=== PATIENT | male | born 1930 | race Caucasian/White ===

== ENCOUNTER 2017-09-03 07:00 | Day surgery (SDC) | payer OTHER, MEDICARE ==
[2017-09-02 11:34] LABS: Absolute Lymphocytes (CBC) 1.4 K/uL (0.7-4.9); Absolute Monocytes 0.6 K/uL (0.1-1.3); Absolute Neutrophil 4.7 K/uL (1.8-8.0); Basophils % 0.5 % (0-1.3); Eosinophils % 2.7 % (0-4.4); Hematocrit 34.9 % (39.6-49.0); Lymphocytes % 19.9 % (15.3-44.8); MCH 29.1 pg (27.0-35.0); MCV 89.5 fL (80-100); MPV 8.3 fL (7.6-11.3); Monocytes % 8.9 % (3.3-12.3); Protime INR 1.13; RBC Red Blood Cell Count 3.89 M/uL (4.33-5.43)
--- NOTE | 2017-09-02 11:35 | RAD REPORT ---
EXAM DESCRIPTION: RADOP - Outpatient Chest Single View - 09/02/2017 10:31 am CLINICAL HISTORY: Hypertension/preop COMPARISON: None FINDINGS: Mild bilateral interstitial lung opacities are seen. Small pleural effusions may be presen t. The heart is mildly to moderately enlarged. A small to moderate hiatal hernia is present. IMPRESSION: Mild CHF
[2017-09-02 12:08] LABS: Potassium 4.9 mEq/L (3.6-5.0)
[2017-09-03] MEDS ORDERED: LIDOCAINE 1% 20 ML MDV ONE (07:29)
[2017-09-03] MEDS ORDERED: HEPA 1000U/500MLS 2,000 UNIT/1,000 ML BAG IV ONE (07:29)
[2017-09-03] MEDS ORDERED: NA CHLORIDE 0.9% 500 ML ONE (07:29)
[2017-09-03] MEDS ORDERED: HEPARIN 5000 UNIT/ML 1 ML VIAL ONE (08:18)
[2017-09-03] MEDS ORDERED: NA CHLORIDE 0.9% 0 ML ONE (08:19)
[2017-09-03] MEDS ORDERED: NITROGLYCERIN/D5W 25 MG/250 ML BTL IV ONE (08:19)
[2017-09-03] MEDS ORDERED: NICARDIPINE HCL 25 MG/10 ML IV ONE (08:19)
[2017-09-03] MEDS ORDERED: ATROPINE SULF 1 MG/10 ML SYR IV ONE (08:19)
[2017-09-03] MEDS ORDERED: MIDAZOLAM HCL 2 MG/2 ML INJ ONE (08:19)
[2017-09-03] MEDS ORDERED: FENTANYL CITR 100 MCG/2 ML ONE (08:29)
--- NOTE | 2017-09-03 19:50 | OP ---
Surgeon: Isreal Mondragon MD Identification: An 87-year-old man. Primary Care Physician: [place] M.D. Procedure: Left heart catheterization with coronary left ventricular angiography. Findings: The patient has a left dominant coronary circulation. 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 There are no normal arterial segments. The left main has 70%, proximal LAD 70%, larg e ramus 90%, circumflex ectatic with a 60% stenosis. 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 Ejection fraction 30% with anteroapical akinesis from a previous [place]. Procedure In Detail: The patient was brought to the cardiac laboratory inspector in a fasting state, sedated wit h Versed and fentanyl. Right radial approach was used. Prepared and draped in usual sterile fashion . 1% lidocaine was used to anesthetize the skin over the right radial artery. The artery was entere d using a 21-gauge needle. A 0.021 inch diameter wire was used to cannulate the right radial artery. We then used that to place a 6-Japanese Terumo sheath. The sheath was flushed. He was given a radia l cocktail. A TIG catheter was guided into the ascending aorta. There was significant branching and tortuosity of the brachial artery which required angiograms of the brachial artery and a Wooly wire. We were able to do the entire case with a TIG catheter. we angiogram'd left coronary, right zafar ry, left ventricle, all with the same catheter. At the end of the procedure, the catheter and wires were withdrawn, sheaths flushed, removed, arteriotomy closed with a TR band. No complications. The recommendation is that he go through bypas s surgery. MALICK/SHAHNAZ Voice ID: [id number] Report ID: [id number]
== END 2017-09-03 11:20 | disposition home or self-care (01) ==
LOC: CCL 07:00
PROVIDERS: ATTEND Internal Medicine
DX: I25.110 Atherosclerotic heart disease of native coronary artery with unstable angina pectoris (principal); I25.82 Chronic total occlusion of coronary artery; I10 Essential (primary) hypertension; E78.2 Mixed hyperlipidemia; F17.220 Nicotine dependence, chewing tobacco, uncomplicated; E11.9 Type 2 diabetes mellitus without complications
CPT/HCPCS: 36415; 71045; 80048; 82962; 85025; 85610; 85730; 93458; C1893; J1644; J2250; J3010; J0583

== ENCOUNTER 2017-09-07 16:10 | Emergency (ER) | payer OTHER, MEDICARE ==
[2017-09-07 16:56] LABS: Arterial Blood Carboxyhemoglob 0.9 % (0-1.5); Blood Gas Oxyhemoglobin 98.1 % (94-97); Blood O2 Saturation 99.5 % (92-98.5)
[2017-09-07 17:00] LABS: Absolute Lymphocytes (CBC) 1.1 K/uL (0.7-4.9); Absolute Monocytes 0.9 K/uL (0.1-1.3); Absolute Neutrophil 8.7 K/uL (1.8-8.0); Basophils % 0.5 % (0-1.3); Eosinophils % 0.2 % (0-4.4); Hematocrit 34.7 % (39.6-49.0); MCH 29.3 pg (27.0-35.0); MCV 89.9 fL (80-100); MPV 9.3 fL (7.6-11.3); Monocytes % 8.2 % (3.3-12.3); RBC Red Blood Cell Count 3.86 M/uL (4.33-5.43)
[2017-09-07] MEDS ORDERED: ALBUTEROL 2.5 MG/3 ML NEB SOL ONE (17:02)
[2017-09-07] MEDS ORDERED: IPRATROPIUM BROM 0.5MG/2.5ML ONE (17:02)
[2017-09-07 17:04] LABS: Protime INR 1.43
[2017-09-07 17:11] LABS: Bicarbonate 24 mEq/L (21-31); Glucose Level 248 mg/dL (65-120); Potassium 5.3 mEq/L (3.6-5.0); Sodium Level 129 mEq/L (135-145)
[2017-09-07 17:17] LABS: ALT/SGPT 144 IU/L (10-60); AST/SGOT 128 IU/L (10-42); Albumin 3.8 g/dL (3.2-5.5); Alkaline Phosphatase 127 IU/L (42-121); BUN Blood Urea Nitrogen 43 mg/dL (6-20); Bilirubin Direct 0.5 mg/dL (0-0.2); Bilirubin Total 1.4 mg/dL (0.3-1.2); Creatine Phosphokinase 585 IU/L (22-269); Magnesium 2.1 mg/dL (1.8-2.5); Protein, Total 7.3 g/dL (6.0-8.3)
[2017-09-07 17:25] LABS: CKMB Creatine Kinase MB 13.2 ng/ml (0.3-4.0)
--- NOTE | 2017-09-07 17:51 | RAD REPORT ---
EXAM DESCRIPTION: Sonal Single View09/07/2017 5:20 pm CLINICAL HISTORY: Chest pain COMPARISON: September 02, 2017 FINDINGS: Small pleural effusions are suspected with bibasilar atelectasis. Mild interstitial pulmo nary edema may be present. The heart is mildly enlarged.
--- NOTE | 2017-09-07 18:02 | ER ---
Nurse's Notes [facility] Name: Sebastián Naylor Age: 87 yrs Sex: Male : 1930 Arrival Date: 09/07/2017 Time: 16:13 Bed 6 Private MD: Diagnosis: Fluid overload, unspecified;Dyspnea, unspecified Presentation: 09/07 16:18 Presenting complaint: Patient states: I will have a triple bypass this Friday, im not hj comfortable, im short of breath, blood sugar was 300, gave insulin 30 units around 2pm, and rechecked it it was 311; denies fever and chills;. Transition of care: patient was not received from another setting of care. Onset of symptoms was September 07, 2017. Care prior to arrival: None. 16:18 Method Of Arrival: Ambulatory 16:18 Acuity: PRATIBHA 3 hj 16:58 Acuity: PRATIBHA 2 la1 Triage Assessment: 16:21 General: Appears in no apparent distress. uncomfortable, Behavior is calm, cooperative, hj appropriate for age. Pain: Denies pain. Respiratory: Reports shortness of breath Onset: The symptoms/episode began/occurred 3 weeks, the patient has moderate shortness of breath. 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 - Social history:: Smoking status: unknown. Screenin:59 Abuse screen: Denies threats or abuse. Nutritional screening: No deficits noted. la1 Tuberculosis screening: No symptoms or risk factors identified. Fall Risk No fall in past 12 months (0 pts). No secondary diagnosis (0 pts). IV access (20 points). Ambulatory Aid- None/Bed Rest/Nurse Assist (0 pts). Gait- Weak (10 pts.). Mental Status- Oriented to own ability (0 pts). Total Neal Fall Scale indicates Low Risk Score (25-44 pts). Family Present and informed to notify staff if they need to leave bedside. Assessment: 16:21 Cardiovascular: Rhythm is. Respiratory: Airway is patent Respiratory effort is even, hj unlabored, Respiratory pattern is regular, symmetrical, 17:14 General: Appears uncomfortable, Behavior is calm, cooperative. Pain: Denies pain. la1 Neuro: Level of Consciousness is awake, alert, obeys commands, Oriented to person, place, time, situation. Cardiovascular: Heart tones S1 S2 present Capillary refill < 3 seconds Patient's skin is warm and dry. Rhythm is sinus bradycardia. Respiratory: Airway is patent Respiratory effort is even, unlabored, Respiratory pattern is regular, symmetrical, Breath sounds are clear bilaterally. GI: Abdomen is round non-distended, Bowel sounds present X 4 quads. : No signs and/or symptoms were reported regarding the genitourinary system. Vital Signs: 16:21 BP 124 / 56; Pulse 46; Resp 18; Temp 97.3(TE); Pulse Ox 97% on R/A; Weight 86.18 kg; hj Height 5 ft. 7 in. (170.18 cm); Pain 0/10; 16:58 BP 147 / 66; Pulse 54; Resp 20; Pulse Ox 100% on Non-rebreather mask; la1 18:19 BP 122 / 76; Pulse 60; Resp 16; Pulse Ox 100% on R/A; la1 18:53 BP 110 / 53; Pulse 51; Resp 16; Pulse Ox 96% on R/A; la1 16:21 Body Mass Index 29.76 (86.18 kg, 170.18 cm) ED Course: 16:13 Patient arrived in ED. sb2 16:20 Triage completed. hj 16:21 Arm band placed on right wrist. hj 16:30 Pippa Mccracken FNP-C [facility]. snw 16:30 Joe Calzada MD is Attending Physician. snw 16:58 Placed in gown. Bed in low position. Call light in reach. quality assurance monitor final on. Pulse ox la1 on. NIBP on. 17:00 No provider procedures requiring assistance completed. Inserted saline lock: 20 gauge la1 in left antecubital area, using aseptic technique. Blood collected. 17:14 Carter Deutsch, RN is Primary Nurse. la1 17:20 X-ray completed. Portable x-ray completed in exam room. Patient tolerated procedure jw2 well. 17:21 XRAY Chest (1 view) In Process Unspecified. EDMS 17:28 Notified Nurse Practitioner and/or Physician Sql Data Architect of a critical lab result(s), la1 ckmb 13.2. Administered Medications: 16:48 Drug: DuoNeb (3:1) (2.5 mg - 0.5 mg) 3 ml Route: Nebulizer; la1 18:59 Follow up: Response: No adverse reaction la1 18:19 Drug: Lasix 20 mg Route: IVP; Site: left antecubital; la1 18:59 Follow up: Response: No adverse reaction la1 Outcome: 18:01 ER care complete, transfer ordered by MD. metzger 18:59 Patient left the ED. la1 Signatures: Dispatcher [employer] EDIN Pippa Mccracken, ROGERS-C MANAGER ADMINISTRATIVE SERVICES-Csnw Carter Deutsch RN RN la1 Duke Ballard RN RN Gianna Escalante jw2 Tiffany Gallo sb2 Corrections: (The following items were deleted from the chart) 16:26 16:21 BP 124 / 56; Pulse 95bpm; Resp 18bpm; Pulse Ox 97% RA; Temp 97.3F Temporal; 86.18 hj kg; Height 5 ft. 7 in.; BMI: 29.7; Pain 0/10; 16:59 16:58 BP 147 / 66; Pulse 20bpm; Resp 20bpm; Pulse Ox 100% Non-rebreather mask; la1 la1 17:14 16:58 BP 147 / 66; Pulse 20bpm; Resp 54bpm; Pulse Ox 100% Non-rebreather mask; la1 la1
--- NOTE | 2017-09-07 18:02 | EDPHYS ---
Physician Documentation [facility] Name: Sebastián Naylor Age: 87 yrs Sex: Male : 1930 Arrival Date: 09/07/2017 Time: 16:13 Bed 6 Private MD: ED Physician Joe Calzada HPI: 09/07 17:30 This 87 yrs old Male presents to ER via Ambulatory with complaints of High snw Blood Sugar, Shortness Of Breath. 17:30 The patient or guardian reports hyperglycemia, that was potentially precipitated by no snw particular event, with the patient's symptoms witnessed by family. Onset: The symptoms/episode began/occurred suddenly, today. Associated signs and symptoms: Pertinent positives: anorexia, nausea, MICHEL. Current symptoms: In the emergency department the patient's symptoms are unchanged from the initial presentation. It is unknown whether or not the patient has had similar symptoms in the past. The patient has been recently seen by a physician: a plate grainer, [facility] - Dr. Wick in scheduled for triple bypass Friday. 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 - Social history:: Smoking status: unknown. ROS: 17:27 Eyes: Negative for injury, pain, redness, and discharge, ENT: Negative for injury, snw pain, and discharge, Neck: Negative for injury, pain, and swelling, Cardiovascular: Negative for chest pain, palpitations, and edema. 17:27 Back: Negative for injury and pain, : Negative for injury, bleeding, discharge, and swelling, MS/Extremity: Negative for injury and deformity, Skin: Negative for injury, rash, and discoloration, Neuro: Negative for headache, weakness, numbness, tingling, and seizure. 17:27 Constitutional: Positive for fatigue, malaise, poor PO intake. 17:27 Respiratory: Positive for shortness of breath, on exertion. 17:27 Abdomen/GI: Positive for nausea. 17:27 Psych: Positive for anxiety. Exam: 17:27 Head/Face: Normocephalic, atraumatic. Eyes: Pupils equal round and reactive to light, snw extra-ocular motions intact. Lids and lashes normal. Conjunctiva and sclera are non-icteric and not injected. Cornea within normal limits. Periorbital areas with no swelling, redness, or edema. ENT: Nares patent. No nasal discharge, no septal abnormalities noted. Tympanic membranes are normal and external auditory canals are clear. Mass distal to tragus to right. Oropharynx with mild redness, no swelling, masses, or exudates, or evidence of obstruction, uvula midline. Mucous membranes moist. Neck: Trachea midline, no thyromegaly or masses palpated, and no cervical lymphadenopathy. Supple, full range of motion without nuchal rigidity, or vertebral point tenderness. No Meningismus. Chest/axilla: Normal chest wall appearance and motion. Nontender with no deformity. No lesions are appreciated. Cardiovascular: Regular rate and rhythm with a normal S1 and S2. No gallops, murmurs, or rubs. Normal PMI, no JVD. No pulse deficits. 17:27 Abdomen/GI: Soft, non-tender, with normal bowel sounds. No distension or tympany. No guarding or rebound. No evidence of tenderness throughout. Back: No spinal tenderness. No costovertebral tenderness. Full range of motion. 17:27 Neuro: Awake and alert, GCS 15, oriented to person, place, time, and situation. Cranial nerves II-XII grossly intact. Motor strength 5/5 in all extremities. Sensory grossly intact. Cerebellar exam normal. Normal gait. 17:27 Constitutional: The patient appears alert, awake, anxious, restless, uncomfortable. 17:27 Respiratory: mild respiratory distress is noted, Respirations: shallow respirations, tachypnea, Breath sounds: wheezing: that is mild, rare to left upper lobe. 17:27 Skin: Appearance: Color: pale, Temperature: normal temperature, Moisture: normal moisture, swelling, is not appreciated. Vital Signs: 16:21 BP 124 / 56; Pulse 46; Resp 18; Temp 97.3(TE); Pulse Ox 97% on R/A; Weight 86.18 kg; hj Height 5 ft. 7 in. (170.18 cm); Pain 0/10; 16:58 BP 147 / 66; Pulse 54; Resp 20; Pulse Ox 100% on Non-rebreather mask; la1 18:19 BP 122 / 76; Pulse 60; Resp 16; Pulse Ox 100% on R/A; la1 18:53 BP 110 / 53; Pulse 51; Resp 16; Pulse Ox 96% on R/A; la1 16:21 Body Mass Index 29.76 (86.18 kg, 170.18 cm) hj MDM: 16:30 Patient medically screened. snw 17:55 Data reviewed: vital signs, nurses notes. Data interpreted: Pulse oximetry: on room air snw is 100 %. Interpretation: normal. Counseling: I had a detailed discussion with the patient and/or guardian regarding: the historical points, exam findings, and any diagnostic results supporting the discharge/admit diagnosis, the presence of at least one elevated blood pressure reading (>120/80) during this emergency department visit, lab results, radiology results, the need to transfer to another facility, [facility] does not immediately have the required specialist. Physician consultation: Dr Wick was called at 17:59, was contacted at 17:59, regarding regarding transfer, to [facility]. patient's condition, Lasix 20mg IV now, Pt accepted in transfer to Dr. Wick.. 18:15 Medication response: albuterol nebulizer treatment(s) markedly relieved the patient's snw wheezing. ED course: pt states he is feeling much better. Will administer Lasix 20mg IV as discussed with Cardiology [facility] now. 09/07 16:32 Order name: Basic Metabolic Panel; Complete Time: 17:33 snw 09/07 16:32 Order name: BNP; Complete Time: 17:25 snw 09/07 16:32 Order name: CBC with Diff; Complete Time: 17:02 snw 09/07 16:32 Order name: Ckmb; Complete Time: 17:33 snw 09/07 16:32 Order name: CPK; Complete Time: 17:33 snw 09/07 16:32 Order name: LFT's; Complete Time: 17:33 snw 09/07 16:32 Order name: Magnesium; Complete Time: 17:33 snw 09/07 16:32 Order name: PT-INR; Complete Time: 17:13 snw 09/07 16:32 Order name: Ptt, Activated; Complete Time: 17:13 snw 09/07 16:32 Order name: Troponin (emerg Dept Use Only); Complete Time: 17:25 snw 09/07 16:32 Order name: Acetone, Serum; Complete Time: 17:33 snw 09/07 16:32 Order name: Osmolality, Serum; Complete Time: 17:25 snw 09/07 16:32 Order name: ABG; Complete Time: 17:13 w 09/07 16:32 Order name: TS; Complete Time: 17:39 snw 09/07 16:32 Order name: XRAY Chest (1 view); Complete Time: 17:51 w 09/07 16:32 Order name: EKG; Complete Time: 16:33 w 09/07 16:32 Order name: Cardiac monitoring; Complete Time: 16:35 w 09/07 16:32 Order name: EKG - Nurse/Tech; Complete Time: 16:35 snw 09/07 16:32 Order name: IV Saline Lock; Complete Time: 16:48 w 09/07 16:32 Order name: Labs collected and sent; Complete Time: 16:48 w 09/07 16:32 Order name: O2 Per Protocol; Complete Time: 16:35 snw 09/07 16:32 Order name: O2 Sat Monitoring; Complete Time: 16:35 w 09/07 16:32 Order name: Blood Culture Adult (2) snw Administered Medications: 16:48 Drug: DuoNeb (3:1) (2.5 mg - 0.5 mg) 3 ml Route: Nebulizer; la1 18:59 Follow up: Response: No adverse reaction la1 18:19 Drug: Lasix 20 mg Route: IVP; Site: left antecubital; la1 18:59 Follow up: Response: No adverse reaction la1 Disposition: 19:04 Co-signature as Attending Physician, Joe Calzada MD. rn Disposition: 09/07/17 18:01 Transfer ordered to [facility]. Diagnosis are Fluid overload, unspecified, Dyspnea, unspecified. - Reason for transfer: Higher level of care. - Accepting physician is Dr. Wick. - Condition is Stable. - Problem is chronic. - Symptoms have worsened. Signatures: Dispatcher [employer] EDMS Pippa Mccracken, QUALITY ASSURANCE QA LAB ANALYST-C QUALITY ASSURANCE QA LAB ANALYST-Csnw Joe Calzada MD MD rn Attema, Lee, RN RN la1 Duke Ballard RN RN hj Corrections: (The following items were deleted from the chart) 18:59 16:32 Urine Dipstick-Ancillary ordered. sn la1
[2017-09-07] MEDS ORDERED: FUROSEMIDE 20 MG/ 2ML VIAL ONE (18:35)
--- NOTE | 2017-09-08 12:56 | EKG ---
Test Date: 2017-09-07 Test Time: 16:32:16 Spring Maker: PATRICK MEASUREMENT RESULTS: Intervals: Rate: 54 ND: 184 QRSD: 146 QT: 512 QTc: 485 [place]: P: 59 ND: 184 QRS: -17 T: 138 INTERPRETIVE STATEMENTS: Sinus bradycardia with premature atrial complexes Left bundle branch block Abnormal ECG Compared to ECG 09/07/2003 15:59:00 Atrial premature complex(es) now present Left bundle-branch block now present Sinus rhythm no longer present Electronically Signed On 09-08-17 12:56:22 CDT by Isreal Mondragon
== END 2017-09-07 18:59 | disposition short-term general hospital (02) ==
LOC: ER 16:10
DX: E87.70 Fluid overload, unspecified (principal); R06.00 Dyspnea, unspecified; E11.9 Type 2 diabetes mellitus without complications
CPT/HCPCS: 36415; 71045; 80048; 80076; 82009; 82550; 82553; 82805; 83735; 83880; 83930; 84484; 85025; 85610; 85730; 86850; 86900; 86901; 87040 ×2; 93005; 94640; 96374; 99285; J1940

== ENCOUNTER 2019-07-20 14:17 | Inpatient (IN) | payer OTHER, MEDICARE ==
--- OUTSIDE RECORDS SUMMARY | 2019-07-20 14:39 | XMS REPORT ---
:1930 [facility] Address [address] [place] [address] Care Team Providers Name Role Phone STEFAN ASHLEY Unavailable Unavailable Problems This patient has no known problems. Allergies, Adverse Reactions, Alerts This patient has no known allergies or adverse reactions. Medications This patient has no known medications. Results Test Description Test Time Test Comments Text Results Atomic Results Result Comments POCT-GLUCOSE METER 2017-09-17 12:06:00 Test Item Value Reference Range Comments POC-GLUCOSE METER (BEAKER) (test 316 mg/dL 70-110 Notified MIGEL MILLER/TESTED AT [facility] ohif=7924) [address] [place] [address] POCT-GLUCOSE [id number] 08:21:00 Test Item Value Reference Range Comments POC-GLUCOSE METER (BEAKER) 239 mg/dL 70-110 TESTED AT [address] (test ycsi=3645) [facility] [address] BASIC METABOLIC [id number] 06:33:00 Test Item Value Reference Range Comments SODIUM (BEAKER) (test 138 meq/L 136-145 osxu=321) POTASSIUM (BEAKER) (test 4.0 meq/L 3.5-5.1 Specimen slightly fjxt=429) hemolyzed CHLORIDE (BEAKER) (test 104 meq/L 98-107 jsem=375) CO2 (BEAKER) (test 23 meq/L 22-29 szdt=516) BLOOD UREA NITROGEN 29 mg/dL 7-21 (BEAKER) (test vhrd=257) CREATININE (BEAKER) (test 1.47 mg/dL 0.57-1.25 Specimen slightly ijli=377) hemolyzed GLUCOSE RANDOM (BEAKER) 180 mg/dL 70-105 (test gdmm=992) CALCIUM (BEAKER) (test 8.1 mg/dL 8.4-10.2 pwew=907) EGFR (BEAKER) (test 46 mL/min/1.73 sq m ESTIMATED GFR IS NOT apwx=5698) ACCURATE CREATININE CLEARANCE IN PREDICTING GLOMERULAR FILTRATION RATE. ESTIMATED GFR IS NOT APPLICABLE FOR DIALYSIS PATIENTS. Specimen slightly ictericB-TYPE NATRIURETIC FACTOR (BNP)2017-09-17 06:31:00 Test Item Value Reference Range Comments B-TYPE NATRIURETIC PEPTIDE (BEAKER) (test 2250 pg/mL 0-100 yldw=901) CBC W/PLT COUNT & AUTO [id number] 06:18:00 Test Item Value Reference Range Comments WHITE BLOOD CELL COUNT (BEAKER) (test xcmg=543) 13.7 K/ L 3.5-10.5 RED BLOOD CELL COUNT (BEAKER) (test kaks=802) 3.21 M/ L 4.63-6.08 HEMOGLOBIN (BEAKER) (test pnft=703) 9.3 GM/DL 13.7-17.5 HEMATOCRIT (BEAKER) (test pztq=820) 29.5 % 40.1-51.0 MEAN CORPUSCULAR VOLUME (BEAKER) (test rcif=626) 91.9 fL 79.0-92.2 MEAN CORPUSCULAR HEMOGLOBIN (BEAKER) (test 29.0 pg 25.7-32.2 srff=800) MEAN CORPUSCULAR HEMOGLOBIN CONC (BEAKER) (test 31.5 GM/DL 32.3-36.5 bjyo=819) RED CELL DISTRIBUTION WIDTH (BEAKER) (test 16.3 % 11.6-14.4 yxnq=013) PLATELET COUNT (BEAKER) (test itni=680) 226 K/CU MM 150-450 MEAN PLATELET VOLUME (BEAKER) (test vuzs=289) 9.8 fL 9.4-12.4 NUCLEATED RED BLOOD CELLS (BEAKER) (test 0 /100 WBC 0-0 fsbg=739) NEUTROPHILS RELATIVE PERCENT (BEAKER) (test 75 % bcco=804) LYMPHOCYTES RELATIVE PERCENT (BEAKER) (test 11 % tezy=130) MONOCYTES RELATIVE PERCENT (BEAKER) (test 9 % pbas=525) EOSINOPHILS RELATIVE PERCENT (BEAKER) (test 3 % qedv=657) BASOPHILS RELATIVE PERCENT (BEAKER) (test 0 % liuw=098) NEUTROPHILS ABSOLUTE COUNT (BEAKER) (test 10.16 K/ L 1.78-5.38 jynn=170) LYMPHOCYTES ABSOLUTE COUNT (BEAKER) (test 1.44 K/ L 1.32-3.57 dihy=146) MONOCYTES ABSOLUTE COUNT (BEAKER) (test 1.27 K/ L 0.30-0.82 ufsc=530) EOSINOPHILS ABSOLUTE COUNT (BEAKER) (test 0.47 K/ L 0.04-0.54 urzm=703) BASOPHILS ABSOLUTE COUNT (BEAKER) (test 0.06 K/ L 0.01-0.08 gryb=155) IMMATURE GRANULOCYTES-RELATIVE PERCENT (BEAKER) 2 % 0-1 (test iimg=5483) POCT-GLUCOSE [id number] 22:10:00 Test Item Value Reference Range Comments POC-GLUCOSE METER (BEAKER) 237 mg/dL 70-110 TESTED AT [address] (test oxdc=4228) [place] [id number] POCT-GLUCOSE [id number] 17:08:00 Test Item Value Reference Range Comments POC-GLUCOSE METER (BEAKER) 112 mg/dL 70-110 TESTED AT [address] (test kvtc=6710) [place] [address] POCT-GLUCOSE [id number] 12:28:00 Test Item Value Reference Range Comments POC-GLUCOSE METER (BEAKER) 157 mg/dL 70-110 TESTED AT [address] (test qnzg=8334) [place] [address] CBC W/PLT COUNT & AUTO [id number] 08:39:00 Test Item Value Reference Range Comments WHITE BLOOD CELL COUNT (BEAKER) (test ayfe=925) 14.6 K/ L 3.5-10.5 RED BLOOD CELL COUNT (BEAKER) (test dfyx=548) 3.17 M/ L 4.63-6.08 HEMOGLOBIN (BEAKER) (test dliz=566) 9.4 GM/DL 13.7-17.5 HEMATOCRIT (BEAKER) (test pohx=352) 29.4 % 40.1-51.0 MEAN CORPUSCULAR VOLUME (BEAKER) (test ukae=381) 92.7 fL 79.0-92.2 MEAN CORPUSCULAR HEMOGLOBIN (BEAKER) (test 29.7 pg 25.7-32.2 dhcb=288) MEAN CORPUSCULAR HEMOGLOBIN CONC (BEAKER) (test 32.0 GM/DL 32.3-36.5 gmym=092) RED CELL DISTRIBUTION WIDTH (BEAKER) (test 16.1 % 11.6-14.4 bacf=394) PLATELET COUNT (BEAKER) (test mncy=311) 197 K/CU MM 150-450 MEAN PLATELET VOLUME (BEAKER) (test dcxu=592) 9.7 fL 9.4-12.4 NUCLEATED RED BLOOD CELLS (BEAKER) (test 1 /100 WBC 0-0 leaj=781) NEUTROPHILS RELATIVE PERCENT (BEAKER) (test 71 % zuys=443) LYMPHOCYTES RELATIVE PERCENT (BEAKER) (test 11 % uiuj=347) MONOCYTES RELATIVE PERCENT (BEAKER) (test 11 % wzmc=470) EOSINOPHILS RELATIVE PERCENT (BEAKER) (test 5 % afty=331) BASOPHILS RELATIVE PERCENT (BEAKER) (test 0 % vmmq=775) NEUTROPHILS ABSOLUTE COUNT (BEAKER) (test 10.40 K/ L 1.78-5.38 bqhq=564) LYMPHOCYTES ABSOLUTE COUNT (BEAKER) (test 1.56 K/ L 1.32-3.57 gtgq=521) MONOCYTES ABSOLUTE COUNT (BEAKER) (test 1.53 K/ L 0.30-0.82 nyvi=041) EOSINOPHILS ABSOLUTE COUNT (BEAKER) (test 0.69 K/ L 0.04-0.54 tcua=241) BASOPHILS ABSOLUTE COUNT (BEAKER) (test 0.04 K/ L 0.01-0.08 uoxy=067) IMMATURE GRANULOCYTES-RELATIVE PERCENT (BEAKER) 3 % 0-1 (test gaxe=6403) (MANUAL DIFFERENTIAL)2017-09-16 08:39:00 Test Item Value Reference Range Comments TOTAL COUNTED (BEAKER) (test kgur=4604) POCT-GLUCOSE [id number] 07:24:00 Test Item Value Reference Range Comments POC-GLUCOSE METER (BEAKER) 203 mg/dL 70-110 TESTED AT [facility] [address] [facility] (test iwtg=1798) [facility] [address] [id number] 05:09:00 Test Item Value Reference Range Comments MAGNESIUM (BEAKER) (test hvcr=080) 1.7 mg/dL 1.6-2.6 BASIC METABOLIC [id number] 05:09:00 Test Item Value Reference Range Comments SODIUM (BEAKER) (test 139 meq/L 136-145 muhj=891) POTASSIUM (BEAKER) (test 4.5 meq/L 3.5-5.1 ifuy=106) CHLORIDE (BEAKER) (test 104 meq/L 98-107 fhim=581) CO2 (BEAKER) (test 25 meq/L 22-29 cqaq=021) BLOOD UREA NITROGEN 34 mg/dL 7-21 (BEAKER) (test tyvn=200) CREATININE (BEAKER) (test 1.47 mg/dL 0.57-1.25 qpnz=831) GLUCOSE RANDOM (BEAKER) 170 mg/dL 70-105 (test srqw=445) CALCIUM (BEAKER) (test 8.6 mg/dL 8.4-10.2 rgyi=012) EGFR (BEAKER) (test 46 mL/min/1.73 sq m ESTIMATED GFR IS NOT ejmz=3396) ACCURATE CREATININE CLEARANCE IN PREDICTING GLOMERULAR FILTRATION RATE. ESTIMATED GFR IS NOT APPLICABLE FOR DIALYSIS PATIENTS. Specimen slightly ictericPOCT-GLUCOSE [id number] 21:48:00 Test Item Value Reference Range Comments POC-GLUCOSE METER (BEAKER) 204 mg/dL 70-110 TESTED AT [address] (test xaaq=7486) [place] [address] POCT-GLUCOSE [id number] 17:11:00 Test Item Value Reference Range Comments POC-GLUCOSE METER (BEAKER) 189 mg/dL 70-110 TESTED AT [address] (test lnnv=7413) [place] [address] POCT-GLUCOSE [id number] 12:26:00 Test Item Value Reference Range Comments POC-GLUCOSE METER (BEAKER) 272 mg/dL 70-110 TESTED AT [address] (test kora=0793) [place] [address] CBC W/PLT COUNT & AUTO [id number] 09:35:00 Test Item Value Reference Range Comments WHITE BLOOD CELL COUNT (BEAKER) (test gnwl=090) 13.1 K/ L 3.5-10.5 RED BLOOD CELL COUNT (BEAKER) (test kvez=421) 3.22 M/ L 4.63-6.08 HEMOGLOBIN (BEAKER) (test brxy=152) 9.4 GM/DL 13.7-17.5 HEMATOCRIT (BEAKER) (test ejhe=109) 30.0 % 40.1-51.0 MEAN CORPUSCULAR VOLUME (BEAKER) (test ypuo=659) 93.2 fL 79.0-92.2 MEAN CORPUSCULAR HEMOGLOBIN (BEAKER) (test 29.2 pg 25.7-32.2 glvr=085) MEAN CORPUSCULAR HEMOGLOBIN CONC (BEAKER) (test 31.3 GM/DL 32.3-36.5 gxnc=463) RED CELL DISTRIBUTION WIDTH (BEAKER) (test 15.9 % 11.6-14.4 nnzj=995) PLATELET COUNT (BEAKER) (test gdbo=647) 183 K/CU MM 150-450 MEAN PLATELET VOLUME (BEAKER) (test idlm=223) 10.5 fL 9.4-12.4 NUCLEATED RED BLOOD CELLS (BEAKER) (test 1 /100 WBC 0-0 ojru=966) NEUTROPHILS RELATIVE PERCENT (BEAKER) (test 70 % rmyo=499) LYMPHOCYTES RELATIVE PERCENT (BEAKER) (test 11 % zpka=128) MONOCYTES RELATIVE PERCENT (BEAKER) (test 11 % dfkh=553) EOSINOPHILS RELATIVE PERCENT (BEAKER) (test 5 % wphh=828) BASOPHILS RELATIVE PERCENT (BEAKER) (test 1 % jeek=035) NEUTROPHILS ABSOLUTE COUNT (BEAKER) (test 9.13 K/ L 1.78-5.38 kbku=394) LYMPHOCYTES ABSOLUTE COUNT (BEAKER) (test 1.46 K/ L 1.32-3.57 sxlf=583) MONOCYTES ABSOLUTE COUNT (BEAKER) (test 1.45 K/ L 0.30-0.82 rdnu=549) EOSINOPHILS ABSOLUTE COUNT (BEAKER) (test 0.60 K/ L 0.04-0.54 swpp=741) BASOPHILS ABSOLUTE COUNT (BEAKER) (test 0.06 K/ L 0.01-0.08 ckzy=673) IMMATURE GRANULOCYTES-RELATIVE PERCENT (BEAKER) 3 % 0-1 (test jykv=9818) (MANUAL DIFFERENTIAL)2017-09-15 09:35:00 Test Item Value Reference Range Comments TOTAL COUNTED (BEAKER) (test idgg=9011) POCT-GLUCOSE [id number] 07:18:00 Test Item Value Reference Range Comments POC-GLUCOSE METER (BEAKER) 176 mg/dL 70-110 TESTED AT [facility] [address] [facility] (test sjtm=0912) [facility] [address] [id number] 07:10:00 Test Item Value Reference Range Comments MAGNESIUM (BEAKER) (test 2.0 mg/dL 1.6-2.6 Specimen slightly hemolyzed bfyc=536) BASIC METABOLIC [id number] 07:10:00 Test Item Value Reference Range Comments SODIUM (BEAKER) (test 136 meq/L 136-145 cbyr=906) POTASSIUM (BEAKER) (test 4.2 meq/L 3.5-5.1 Specimen slightly trgk=906) hemolyzed CHLORIDE (BEAKER) (test 103 meq/L 98-107 yhov=342) CO2 (BEAKER) (test 22 meq/L 22-29 kzig=690) BLOOD UREA NITROGEN 38 mg/dL 7-21 (BEAKER) (test xcfr=693) CREATININE (BEAKER) (test 1.45 mg/dL 0.57-1.25 Specimen slightly egoj=698) hemolyzed GLUCOSE RANDOM (BEAKER) 142 mg/dL 70-105 (test mzih=303) CALCIUM (BEAKER) (test 8.3 mg/dL 8.4-10.2 tkcp=039) EGFR (BEAKER) (test 46 mL/min/1.73 sq m ESTIMATED GFR IS NOT syuj=8359) ACCURATE CREATININE CLEARANCE IN PREDICTING GLOMERULAR FILTRATION RATE. ESTIMATED GFR IS NOT APPLICABLE FOR DIALYSIS PATIENTS. Specimen slightly ictericPOCT-GLUCOSE [id number] 21:35:00 Test Item Value Reference Range Comments POC-GLUCOSE METER (BEAKER) 149 mg/dL 70-110 TESTED AT [address] (test xapm=7440) [facility] [address] POCT-GLUCOSE [id number] 17:26:00 Test Item Value Reference Range Comments POC-GLUCOSE METER (BEAKER) 95 mg/dL 70-110 TESTED AT [address] (test byxj=9192) [place] [address] POCT-GLUCOSE [id number] 12:04:00 Test Item Value Reference Range Comments POC-GLUCOSE METER (BEAKER) 172 mg/dL 70-110 TESTED AT [address] (test jpzk=9266) [facility] [address] [id number] 08:25:00 Test Item Value Reference Range Comments MAGNESIUM (BEAKER) (test xhfg=185) 1.7 mg/dL 1.6-2.6 BASIC METABOLIC [id number] 08:25:00 Test Item Value Reference Range Comments SODIUM (BEAKER) (test 136 meq/L 136-145 ygui=027) POTASSIUM (BEAKER) (test 4.4 meq/L 3.5-5.1 wygp=153) CHLORIDE (BEAKER) (test 103 meq/L 98-107 nxcc=146) CO2 (BEAKER) (test 20 meq/L 22-29 qpac=100) BLOOD UREA NITROGEN 38 mg/dL 7-21 (BEAKER) (test ywlu=671) CREATININE (BEAKER) (test 1.39 mg/dL 0.57-1.25 oqxc=860) GLUCOSE RANDOM (BEAKER) 179 mg/dL 70-105 (test gdoy=660) CALCIUM (BEAKER) (test 8.3 mg/dL 8.4-10.2 xmhg=410) EGFR (BEAKER) (test 49 mL/min/1.73 sq m ESTIMATED GFR IS NOT zsad=0329) ACCURATE CREATININE CLEARANCE IN PREDICTING GLOMERULAR FILTRATION RATE. ESTIMATED GFR IS NOT APPLICABLE FOR DIALYSIS PATIENTS. Specimen slightly ictericPOCT-GLUCOSE [id number] 08:20:00 Test Item Value Reference Range Comments POC-GLUCOSE METER (BEAKER) 197 mg/dL 70-110 TESTED AT [facility] [address] [facility] (test nirf=7145) [facility] [address] CBC W/PLT COUNT & AUTO [id number] 07:13:00 Test Item Value Reference Range Comments WHITE BLOOD CELL COUNT (BEAKER) (test ltun=102) 13.5 K/ L 3.5-10.5 RED BLOOD CELL COUNT (BEAKER) (test yihh=178) 3.15 M/ L 4.63-6.08 HEMOGLOBIN (BEAKER) (test efmj=176) 9.2 GM/DL 13.7-17.5 HEMATOCRIT (BEAKER) (test yxpq=570) 28.5 % 40.1-51.0 MEAN CORPUSCULAR VOLUME (BEAKER) (test xvfz=193) 90.5 fL 79.0-92.2 MEAN CORPUSCULAR HEMOGLOBIN (BEAKER) (test 29.2 pg 25.7-32.2 wrvr=105) MEAN CORPUSCULAR HEMOGLOBIN CONC (BEAKER) (test 32.3 GM/DL 32.3-36.5 mqmy=189) RED CELL DISTRIBUTION WIDTH (BEAKER) (test 15.6 % 11.6-14.4 qbfe=448) PLATELET COUNT (BEAKER) (test ooqb=239) 166 K/CU MM 150-450 MEAN PLATELET VOLUME (BEAKER) (test qmaw=155) 10.3 fL 9.4-12.4 NUCLEATED RED BLOOD CELLS (BEAKER) (test 1 /100 WBC 0-0 ritp=419) NEUTROPHILS RELATIVE PERCENT (BEAKER) (test 69 % nrpl=540) LYMPHOCYTES RELATIVE PERCENT (BEAKER) (test 11 % sobe=563) MONOCYTES RELATIVE PERCENT (BEAKER) (test 13 % okyr=957) EOSINOPHILS RELATIVE PERCENT (BEAKER) (test 4 % zkoy=961) BASOPHILS RELATIVE PERCENT (BEAKER) (test 0 % zzcw=521) NEUTROPHILS ABSOLUTE COUNT (BEAKER) (test 9.39 K/ L 1.78-5.38 pefe=094) LYMPHOCYTES ABSOLUTE COUNT (BEAKER) (test 1.54 K/ L 1.32-3.57 wctx=060) MONOCYTES ABSOLUTE COUNT (BEAKER) (test 1.75 K/ L 0.30-0.82 jhvh=171) EOSINOPHILS ABSOLUTE COUNT (BEAKER) (test 0.48 K/ L 0.04-0.54 uhtg=619) BASOPHILS ABSOLUTE COUNT (BEAKER) (test 0.05 K/ L 0.01-0.08 uzgk=109) IMMATURE GRANULOCYTES-RELATIVE PERCENT (BEAKER) 2 % 0-1 (test aqvu=6712) POCT-GLUCOSE [id number] 21:16:00 Test Item Value Reference Range Comments POC-GLUCOSE METER (BEAKER) 180 mg/dL 70-110 TESTED AT [address] (test lxzk=3890) [facility] [address] POCT-GLUCOSE [id number] 17:23:00 Test Item Value Reference Range Comments POC-GLUCOSE METER (BEAKER) 102 mg/dL 70-110 TESTED AT [address] (test xvxl=0025) [place] [id number] POCT-GLUCOSE [id number] 12:27:00 Test Item Value Reference Range Comments POC-GLUCOSE METER (BEAKER) 173 mg/dL 70-110 TESTED AT [address] (test jrda=3405) [place] [address] POCT-GLUCOSE [id number] 08:51:00 Test Item Value Reference Range Comments POC-GLUCOSE METER (BEAKER) 218 mg/dL 70-110 TESTED AT [address] (test necv=2041) [facility] [address] RAD, CHEST, 1 VIEW, NON [id number] 05:37:00Reason for exam:->s/p BiV ICD implantShould this be performed at the bedside?->YesFINAL REPORT RAD, CHEST, 1 VIEW, NON DEPT INDICATION: s/p BiV ICD implant COMPARISON: Prior day's exam TECHNIQUE: Portable frontal view of the chest. IMPRESSION: Interval removal of all lines and tubes.Stable cardiomegaly.Stable to slight worsening interstitial edema.No pneumothorax.No acute osseous abnormality. Signed: Toan Frias MDReport Verified Date/Time: 09/13/2017 05 :37:41 Reading Location: [address] Ortho Consult Reading Room POCT-GLUCOSE [id number] 22:22:00 Test Item Value Reference Range Comments POC-GLUCOSE METER (BEAKER) 169 mg/dL 70-110 TESTED AT [address] (test uvyg=2043) [facility] [address] POCT-GLUCOSE [id number] 17:08:00 Test Item Value Reference Range Comments POC-GLUCOSE METER (BEAKER) 205 mg/dL 70-110 TESTED AT [address] (test arse=7331) [facility] [address] BASIC METABOLIC [id number] 14:35:00 Test Item Value Reference Range Comments SODIUM (BEAKER) (test 136 meq/L 136-145 oyph=156) POTASSIUM (BEAKER) (test 4.4 meq/L 3.5-5.1 njcg=848) CHLORIDE (BEAKER) (test 105 meq/L 98-107 cagq=656) CO2 (BEAKER) (test 20 meq/L 22-29 xslo=566) BLOOD UREA NITROGEN 34 mg/dL 7-21 (BEAKER) (test yqpz=304) CREATININE (BEAKER) (test 1.49 mg/dL 0.57-1.25 xzct=238) GLUCOSE RANDOM (BEAKER) 250 mg/dL 70-105 (test juoi=166) CALCIUM (BEAKER) (test 8.1 mg/dL 8.4-10.2 hptn=660) EGFR (BEAKER) (test 45 mL/min/1.73 sq m ESTIMATED GFR IS NOT pvad=2742) ACCURATE CREATININE CLEARANCE IN PREDICTING GLOMERULAR FILTRATION RATE. ESTIMATED GFR IS NOT APPLICABLE FOR DIALYSIS PATIENTS. Specimen slightly ictericC (HEMOGRAM ONLY)2017-09-12 14:18:00 Test Item Value Reference Range Comments WHITE BLOOD CELL COUNT (BEAKER) (test kaiv=018) 10.0 K/ L 3.5-10.5 RED BLOOD CELL COUNT (BEAKER) (test hact=911) 3.03 M/ L 4.63-6.08 HEMOGLOBIN (BEAKER) (test fcrh=537) 8.9 GM/DL 13.7-17.5 HEMATOCRIT (BEAKER) (test ctej=083) 27.4 % 40.1-51.0 MEAN CORPUSCULAR VOLUME (BEAKER) (test hvyp=364) 90.4 fL 79.0-92.2 MEAN CORPUSCULAR HEMOGLOBIN (BEAKER) (test 29.4 pg 25.7-32.2 jmnu=599) MEAN CORPUSCULAR HEMOGLOBIN CONC (BEAKER) (test 32.5 GM/DL 32.3-36.5 brwx=432) RED CELL DISTRIBUTION WIDTH (BEAKER) (test 15.5 % 11.6-14.4 vszt=944) PLATELET COUNT (BEAKER) (test bazi=735) 116 K/CU MM 150-450 MEAN PLATELET VOLUME (BEAKER) (test ykxs=866) 10.1 fL 9.4-12.4 NUCLEATED RED BLOOD CELLS (BEAKER) (test 1 /100 WBC 0-0 sklk=592) POCT-GLUCOSE [id number] 12:24:00 Test Item Value Reference Range Comments POC-GLUCOSE METER (BEAKER) 287 mg/dL 70-110 TESTED AT [facility] [address] (test gbth=4695) [place] [address] RAD, CHEST, 1 VIEW, NON [id number] 08:32:00while patient is intubated or has chest tubes.Reason for exam:->cabgShould this be performed at the bedside ?->YesFINAL REPORT Chest one view INDICATION: CABG COMPARISON: 09/11/2017 IMPRESSION: Support devices are stable. Median sternotomy changes and ICD are again noted. The cardiac silhouette is enlarged. Mediastinal prominence is stable. Pulmonary edema is similar in appearance. Dependentpleural effusions remain present with stable basilar airspace disease. Pneumonitis should be excluded clinically. No pneumothorax is seen. Signed: Wilfrid Beckwith MDReport Verified Date/Time: 09/12/2017 08:32:57 Reading Location: [facility] Radiology Reading Room BLOOD GAS, [id number] 06 :35:00 Test Item Value Reference Range Comments PH ARTERIAL (BEAKER) (test knpn=093) 7.39 7.35-7.45 PCO2 ARTERIAL (BEAKER) (test speg=296) 33 mmHg 35-45 PO2 ARTERIAL (BEAKER) (test umbq=057) 129 mmHg 80-90 O2 SATURATION ARTERIAL (BEAKER) (test zhqk=740) 98.6 % 96.0-97.0 HCO3 ARTERIAL (BEAKER) (test vksm=014) 20 mmol/L 21-29 BASE EXCESS ARTERIAL (BEAKER) (test wojg=947) -4.6 mmol/L -2.0-3.0 PATIENT TEMPERATURE (BEAKER) (test fkti=7787) 36.7 C FIO2 (BEAKER) (test yzes=0646) 44.0 % CALCIUM, [id number] 05:49:00 Test Item Value Reference Range Comments CALCIUM IONIZED (BEAKER) (test anbc=202) 1.06 mmol/L 1.12-1.27 PH, BLOOD (BEAKER) (test vdtc=9518) 7.33 OXYGEN SATURATION, [id number] 05:48:00 Test Item Value Reference Range Comments O2 SATURATION (MEASURED) (BEAKER) (test ksvq=8436) 67.4 % [id number] 05:45:00 Test Item Value Reference Range Comments PHOSPHORUS (BEAKER) (test nvok=637) 3.1 mg/dL 2.3-4.7 [id number] 05:45:00 Test Item Value Reference Range Comments MAGNESIUM (BEAKER) (test epug=712) 1.7 mg/dL 1.6-2.6 BASIC METABOLIC [id number] 05:45:00 Test Item Value Reference Range Comments SODIUM (BEAKER) (test 136 meq/L 136-145 ogwg=078) POTASSIUM (BEAKER) (test 3.8 meq/L 3.5-5.1 gbbi=979) CHLORIDE (BEAKER) (test 105 meq/L 98-107 wiwm=852) CO2 (BEAKER) (test 18 meq/L 22-29 agsc=233) BLOOD UREA NITROGEN 33 mg/dL 7-21 (BEAKER) (test twkm=547) CREATININE (BEAKER) (test 1.49 mg/dL 0.57-1.25 kprz=629) GLUCOSE RANDOM (BEAKER) 179 mg/dL 70-105 (test dvlf=360) CALCIUM (BEAKER) (test 8.0 mg/dL 8.4-10.2 cyic=013) EGFR (BEAKER) (test 45 mL/min/1.73 sq m ESTIMATED GFR IS NOT aafy=4931) ACCURATE CREATININE CLEARANCE IN PREDICTING GLOMERULAR FILTRATION RATE. ESTIMATED GFR IS NOT APPLICABLE FOR DIALYSIS PATIENTS. Specimen slightly ictericCBC W/PLT COUNT & AUTO [id number] 05:37 :00 Test Item Value Reference Range Comments WHITE BLOOD CELL COUNT (BEAKER) (test paus=821) 10.2 K/ L 3.5-10.5 RED BLOOD CELL COUNT (BEAKER) (test apgm=903) 3.02 M/ L 4.63-6.08 HEMOGLOBIN (BEAKER) (test wmre=918) 8.7 GM/DL 13.7-17.5 HEMATOCRIT (BEAKER) (test sglz=971) 27.3 % 40.1-51.0 MEAN CORPUSCULAR VOLUME (BEAKER) (test jevq=094) 90.4 fL 79.0-92.2 MEAN CORPUSCULAR HEMOGLOBIN (BEAKER) (test 28.8 pg 25.7-32.2 eida=335) MEAN CORPUSCULAR HEMOGLOBIN CONC (BEAKER) (test 31.9 GM/DL 32.3-36.5 zmib=325) RED CELL DISTRIBUTION WIDTH (BEAKER) (test 15.3 % 11.6-14.4 kkzx=140) PLATELET COUNT (BEAKER) (test buvb=393) 128 K/CU MM 150-450 MEAN PLATELET VOLUME (BEAKER) (test phwk=622) 10.8 fL 9.4-12.4 NUCLEATED RED BLOOD CELLS (BEAKER) (test 0 /100 WBC 0-0 cbqj=559) NEUTROPHILS RELATIVE PERCENT (BEAKER) (test 75 % jtax=063) LYMPHOCYTES RELATIVE PERCENT (BEAKER) (test 8 % xngq=347) MONOCYTES RELATIVE PERCENT (BEAKER) (test 14 % vofg=153) EOSINOPHILS RELATIVE PERCENT (BEAKER) (test 2 % xxjn=290) BASOPHILS RELATIVE PERCENT (BEAKER) (test 0 % kryg=275) NEUTROPHILS ABSOLUTE COUNT (BEAKER) (test 7.65 K/ L 1.78-5.38 geef=861) LYMPHOCYTES ABSOLUTE COUNT (BEAKER) (test 0.83 K/ L 1.32-3.57 qgya=707) MONOCYTES ABSOLUTE COUNT (BEAKER) (test 1.44 K/ L 0.30-0.82 jwmx=695) EOSINOPHILS ABSOLUTE COUNT (BEAKER) (test 0.18 K/ L 0.04-0.54 vmik=309) BASOPHILS ABSOLUTE COUNT (BEAKER) (test 0.04 K/ L 0.01-0.08 xnxj=041) IMMATURE GRANULOCYTES-RELATIVE PERCENT (BEAKER) 1 % 0-1 (test mkzx=5920) BLOOD GAS, [id number] 23:24:00 Test Item Value Reference Range Comments PH ARTERIAL (BEAKER) (test vrbz=062) 7.42 7.35-7.45 PCO2 ARTERIAL (BEAKER) (test kowc=590) 35 mmHg 35-45 PO2 ARTERIAL (BEAKER) (test clrj=842) 153 mmHg 80-90 O2 SATURATION ARTERIAL (BEAKER) (test bcvh=663) 99.0 % 96.0-97.0 HCO3 ARTERIAL (BEAKER) (test omns=103) 22 mmol/L 21-29 BASE EXCESS ARTERIAL (BEAKER) (test udbg=764) -1.8 mmol/L -2.0-3.0 PATIENT TEMPERATURE (BEAKER) (test uzxa=7738) 36.7 C FIO2 (BEAKER) (test fgtg=6042) 70.0 % POCT-GLUCOSE [id number] 22:06:00 Test Item Value Reference Range Comments POC-GLUCOSE METER (BEAKER) 136 mg/dL 70-110 TESTED AT [place] [id number] [facility] (test xzvb=6473) [facility] [id number] RAD, CHEST, 1 VIEW, NON [id number] 19:27:00Reason for exam:-> intubationShould this be performed at the bedside?->YesFINAL REPORT Chest one view AP 09/11/2017 7:26 PM CLINICAL INDICATION: intubation COMPARISON: 09/11/2017 at 0406 IMPRESSION: Support hardware is in satisfactory radiographic position. Cardiomediastinal contours are stable. There is central pulmonary vasculature congestion without remarkable peripheral edema. Hazy bibasilar opacities suggesting combination of pleural fluid and atelectasis. Pneumonia should be excluded clinically. Signed: Giles Adams Verified Date/Time: 09/11/2017 19:27:17 Reading Location: [facility] Radiology Reading Room BLOOD GAS, [id number] 18:28:00 Test Item Value Reference Range Comments PH ARTERIAL (BEAKER) (test rxlb=803) 7.39 7.35-7.45 PCO2 ARTERIAL (BEAKER) (test wyce=267) 34 mmHg 35-45 PO2 ARTERIAL (BEAKER) (test bjjr=833) 199 mmHg 80-90 O2 SATURATION ARTERIAL (BEAKER) (test ugqs=999) 99.4 % 96.0-97.0 HCO3 ARTERIAL (BEAKER) (test qvkl=664) 20 mmol/L 21-29 BASE EXCESS ARTERIAL (BEAKER) (test lqwa=951) -4.7 mmol/L -2.0-3.0 PATIENT TEMPERATURE (BEAKER) (test ebmi=7371) 36.9 C FIO2 (BEAKER) (test iewq=3671) 50.0 % POCT-GLUCOSE [id number] 18:06:00 Test Item Value Reference Range Comments POC-GLUCOSE METER (BEAKER) 111 mg/dL 70-110 TESTED AT [address] (test wogb=3686) [place] [id number] 17:51:00 Test Item Value Reference Range Comments POTASSIUM (BEAKER) (test altc=527) 3.9 meq/L 3.5-5.1 [id number] 17:51:00 Test Item Value Reference Range Comments MAGNESIUM (BEAKER) (test muna=570) 1.6 mg/dL 1.6-2.6 HEMOGLOBIN AND [id number] 17:43:00 Test Item Value Reference Range Comments HEMOGLOBIN (BEAKER) (test khot=882) 9.1 GM/DL 13.7-17.5 HEMATOCRIT (BEAKER) (test dtvt=162) 27.7 % 40.1-51.0 BLOOD GAS, [id number] 17:30:00 Test Item Value Reference Range Comments PH ARTERIAL (BEAKER) (test oouj=139) 7.44 7.35-7.45 PCO2 ARTERIAL (BEAKER) (test iumi=190) 34 mmHg 35-45 PO2 ARTERIAL (BEAKER) (test ukac=405) 159 mmHg 80-90 O2 SATURATION ARTERIAL (BEAKER) (test jhzx=029) 99.1 % 96.0-97.0 HCO3 ARTERIAL (BEAKER) (test tavm=327) 23 mmol/L 21-29 BASE EXCESS ARTERIAL (BEAKER) (test qaaw=878) -1.3 mmol/L -2.0-3.0 PATIENT TEMPERATURE (BEAKER) (test fdjk=7914) 36.9 C FIO2 (BEAKER) (test btkk=2446) 50.0 % POCT-GLUCOSE [id number] 17:10:00 Test Item Value Reference Range Comments POC-GLUCOSE METER (BEAKER) 110 mg/dL 70-110 TESTED AT [address] (test ypnr=7947) [place] [address] HEMOGLOBIN AND [id number] 13:11:00 Test Item Value Reference Range Comments HEMOGLOBIN (BEAKER) (test eiet=363) 9.1 GM/DL 13.7-17.5 HEMATOCRIT (BEAKER) (test lfxh=690) 27.7 % 40.1-51.0 POCT-GLUCOSE [id number] 08:07:00 Test Item Value Reference Range Comments POC-GLUCOSE METER (BEAKER) 129 mg/dL 70-110 TESTED AT [address] (test dwpq=7709) [facility] [address] CALCIUM, [id number] 07:22:00 Test Item Value Reference Range Comments CALCIUM IONIZED (BEAKER) (test rbdv=908) 1.13 mmol/L 1.12-1.27 PH, BLOOD (BEAKER) (test nqet=1429) 7.41 RAD, CHEST, 1 VIEW, NON [id number] 07:05:00while patient is intubated or has chest tubes.Reason for exam:->cabgShould this be performed at the bedside ?->YesFINAL REPORT Chest, one view. HISTORY: Postoperative COMPARISON: 09/10/2017 IMPRESSION: Interval extubation and removal of nasogastric tube. Remaining supporting lines and tubes unchanged in position. No identifiable pneumothorax. Unchanged enlargement of the cardiomediastinal silhouette. Unchanged retrocardiac opacification which could represent combination of atelectasis, consolidation, and/or effusion. Trace right pleural effusion Signed: Danilo Reece MDReport Verified Date/Time: 2017 07:05:01 Reading Location: [facility] Diagnostic Imaging Reading Room - [place] [address] OXYGEN SATURATION, [id number] 05:53:00 Test Item Value Reference Range Comments O2 SATURATION (MEASURED) (BEAKER) (test oykq=2528) 68.2 % [id number] 05:26:00 Test Item Value Reference Range Comments PHOSPHORUS (BEAKER) (test vlgs=517) 3.4 mg/dL 2.3-4.7 [id number] 05:26:00 Test Item Value Reference Range Comments MAGNESIUM (BEAKER) (test hfua=595) 2.0 mg/dL 1.6-2.6 BASIC METABOLIC [id number] 05:26:00 Test Item Value Reference Range Comments SODIUM (BEAKER) (test 139 meq/L 136-145 nzxf=073) POTASSIUM (BEAKER) (test 4.0 meq/L 3.5-5.1 xwkf=142) CHLORIDE (BEAKER) (test 108 meq/L 98-107 vvfj=756) CO2 (BEAKER) (test 23 meq/L 22-29 nnld=990) BLOOD UREA NITROGEN 31 mg/dL 7-21 (BEAKER) (test ruyb=857) CREATININE (BEAKER) (test 1.37 mg/dL 0.57-1.25 zkqn=832) GLUCOSE RANDOM (BEAKER) 53 mg/dL 70-105 (test yfbw=817) CALCIUM (BEAKER) (test 8.3 mg/dL 8.4-10.2 ohwu=814) EGFR (BEAKER) (test 49 mL/min/1.73 sq m ESTIMATED GFR IS NOT onkj=9484) ACCURATE CREATININE CLEARANCE IN PREDICTING GLOMERULAR FILTRATION RATE. ESTIMATED GFR IS NOT APPLICABLE FOR DIALYSIS PATIENTS. PROTHROMBIN [id number] 05:20:00 Test Item Value Reference Range Comments PROTIME (BEAKER) (test xklh=161) 19.0 seconds 11.7-14.7 INR (BEAKER) (test misl=665) 1.6 <=5.9 RECOMMENDED COUMADIN/WARFARIN INR THERAPY RANGESSTANDARD DOSE: 2.0 - 3.0 Includes: PROPHYLAXIS forvenous thrombosis, systemic embolization; TREATMENT for venous thrombosis and/or pulmonary embolus.HIGH RISK: Target INR is 2.5-3.5 for patients with mechanical heart valves.CBC W/PLT COUNT & AUTO [id number] 05:04:00 Test Item Value Reference Range Comments WHITE BLOOD CELL COUNT (BEAKER) (test jqrh=227) 7.2 K/ L 3.5-10.5 RED BLOOD CELL COUNT (BEAKER) (test pdjq=126) 2.58 M/ L 4.63-6.08 HEMOGLOBIN (BEAKER) (test jpwc=821) 7.4 GM/DL 13.7-17.5 HEMATOCRIT (BEAKER) (test hguu=428) 23.3 % 40.1-51.0 MEAN CORPUSCULAR VOLUME (BEAKER) (test cyoc=492) 90.3 fL 79.0-92.2 MEAN CORPUSCULAR HEMOGLOBIN (BEAKER) (test 28.7 pg 25.7-32.2 gpvw=373) MEAN CORPUSCULAR HEMOGLOBIN CONC (BEAKER) (test 31.8 GM/DL 32.3-36.5 aryy=718) RED CELL DISTRIBUTION WIDTH (BEAKER) (test 15.3 % 11.6-14.4 utqc=079) PLATELET COUNT (BEAKER) (test gemj=585) 108 K/CU MM 150-450 MEAN PLATELET VOLUME (BEAKER) (test mjez=727) 10.7 fL 9.4-12.4 NUCLEATED RED BLOOD CELLS (BEAKER) (test 0 /100 WBC 0-0 copu=520) NEUTROPHILS RELATIVE PERCENT (BEAKER) (test 73 % zvza=474) LYMPHOCYTES RELATIVE PERCENT (BEAKER) (test 13 % vmal=284) MONOCYTES RELATIVE PERCENT (BEAKER) (test 12 % poga=171) EOSINOPHILS RELATIVE PERCENT (BEAKER) (test 2 % hcxb=293) BASOPHILS RELATIVE PERCENT (BEAKER) (test 0 % ktgk=742) NEUTROPHILS ABSOLUTE COUNT (BEAKER) (test 5.28 K/ L 1.78-5.38 uvnx=000) LYMPHOCYTES ABSOLUTE COUNT (BEAKER) (test 0.91 K/ L 1.32-3.57 qsfd=176) MONOCYTES ABSOLUTE COUNT (BEAKER) (test 0.84 K/ L 0.30-0.82 vehl=656) EOSINOPHILS ABSOLUTE COUNT (BEAKER) (test 0.16 K/ L 0.04-0.54 ofcg=889) BASOPHILS ABSOLUTE COUNT (BEAKER) (test 0.03 K/ L 0.01-0.08 crdn=218) IMMATURE GRANULOCYTES-RELATIVE PERCENT (BEAKER) 0 % 0-1 (test xwfp=2286) CBC W/PLT COUNT & AUTO [id number] 14:58:00 Test Item Value Reference Range Comments WHITE BLOOD CELL COUNT (BEAKER) (test mufj=357) 8.7 K/ L 3.5-10.5 RED BLOOD CELL COUNT (BEAKER) (test pttg=797) 2.84 M/ L 4.63-6.08 HEMOGLOBIN (BEAKER) (test cjqs=872) 8.3 GM/DL 13.7-17.5 HEMATOCRIT (BEAKER) (test iyhv=122) 25.4 % 40.1-51.0 MEAN CORPUSCULAR VOLUME (BEAKER) (test kdnl=203) 89.4 fL 79.0-92.2 MEAN CORPUSCULAR HEMOGLOBIN (BEAKER) (test 29.2 pg 25.7-32.2 nqbh=350) MEAN CORPUSCULAR HEMOGLOBIN CONC (BEAKER) (test 32.7 GM/DL 32.3-36.5 mzzn=614) RED CELL DISTRIBUTION WIDTH (BEAKER) (test 15.2 % 11.6-14.4 ixpo=175) PLATELET COUNT (BEAKER) (test vchj=544) 123 K/CU MM 150-450 MEAN PLATELET VOLUME (BEAKER) (test fond=718) 10.6 fL 9.4-12.4 NUCLEATED RED BLOOD CELLS (BEAKER) (test 1 /100 WBC 0-0 kzev=209) NEUTROPHILS RELATIVE PERCENT (BEAKER) (test 74 % ftkm=977) LYMPHOCYTES RELATIVE PERCENT (BEAKER) (test 12 % jtka=892) MONOCYTES RELATIVE PERCENT (BEAKER) (test 12 % thnr=338) EOSINOPHILS RELATIVE PERCENT (BEAKER) (test 0 % hwgy=376) BASOPHILS RELATIVE PERCENT (BEAKER) (test 0 % ikwm=549) NEUTROPHILS ABSOLUTE COUNT (BEAKER) (test 6.49 K/ L 1.78-5.38 cefr=242) LYMPHOCYTES ABSOLUTE COUNT (BEAKER) (test 1.07 K/ L 1.32-3.57 clzk=001) MONOCYTES ABSOLUTE COUNT (BEAKER) (test 1.08 K/ L 0.30-0.82 govk=296) EOSINOPHILS ABSOLUTE COUNT (BEAKER) (test 0.03 K/ L 0.04-0.54 smzt=082) BASOPHILS ABSOLUTE COUNT (BEAKER) (test 0.03 K/ L 0.01-0.08 ugwy=381) IMMATURE GRANULOCYTES-RELATIVE PERCENT (BEAKER) 1 % 0-1 (test gjfo=8162) CBC W/PLT COUNT & AUTO [id number] 13:12:00 Test Item Value Reference Range Comments WHITE BLOOD CELL COUNT (BEAKER) (test etqk=162) 7.9 K/ L 3.5-10.5 RED BLOOD CELL COUNT (BEAKER) (test qnqs=588) 2.74 M/ L 4.63-6.08 HEMOGLOBIN (BEAKER) (test whnw=926) 8.1 GM/DL 13.7-17.5 HEMATOCRIT (BEAKER) (test kiec=829) 24.5 % 40.1-51.0 MEAN CORPUSCULAR VOLUME (BEAKER) (test nzfy=213) 89.4 fL 79.0-92.2 MEAN CORPUSCULAR HEMOGLOBIN (BEAKER) (test 29.6 pg 25.7-32.2 zvjz=104) MEAN CORPUSCULAR HEMOGLOBIN CONC (BEAKER) (test 33.1 GM/DL 32.3-36.5 roet=135) RED CELL DISTRIBUTION WIDTH (BEAKER) (test 15.3 % 11.6-14.4 htgv=077) PLATELET COUNT (BEAKER) (test sxpd=046) 114 K/CU MM 150-450 MEAN PLATELET VOLUME (BEAKER) (test txyp=515) 10.7 fL 9.4-12.4 NUCLEATED RED BLOOD CELLS (BEAKER) (test 1 /100 WBC 0-0 kjnb=792) NEUTROPHILS RELATIVE PERCENT (BEAKER) (test 74 % otbl=984) LYMPHOCYTES RELATIVE PERCENT (BEAKER) (test 13 % glyk=521) MONOCYTES RELATIVE PERCENT (BEAKER) (test 12 % gzqk=427) EOSINOPHILS RELATIVE PERCENT (BEAKER) (test 1 % tyle=711) BASOPHILS RELATIVE PERCENT (BEAKER) (test 0 % ydbl=058) NEUTROPHILS ABSOLUTE COUNT (BEAKER) (test 5.84 K/ L 1.78-5.38 brqy=313) LYMPHOCYTES ABSOLUTE COUNT (BEAKER) (test 1.04 K/ L 1.32-3.57 xgno=951) MONOCYTES ABSOLUTE COUNT (BEAKER) (test 0.92 K/ L 0.30-0.82 yaiw=120) EOSINOPHILS ABSOLUTE COUNT (BEAKER) (test 0.07 K/ L 0.04-0.54 vtoh=908) BASOPHILS ABSOLUTE COUNT (BEAKER) (test 0.03 K/ L 0.01-0.08 izjx=912) IMMATURE GRANULOCYTES-RELATIVE PERCENT (BEAKER) 1 % 0-1 (test jjhc=4764) BLOOD GAS, [id number] 12:40:00 Test Item Value Reference Range Comments PH ARTERIAL (BEAKER) (test mkqw=425) 7.45 7.35-7.45 PCO2 ARTERIAL (BEAKER) (test rtyc=053) 35 mmHg 35-45 PO2 ARTERIAL (BEAKER) (test kjqj=293) 115 mmHg 80-90 O2 SATURATION ARTERIAL (BEAKER) (test ldha=622) 98.5 % 96.0-97.0 HCO3 ARTERIAL (BEAKER) (test upmy=771) 24 mmol/L 21-29 BASE EXCESS ARTERIAL (BEAKER) (test tbud=319) -0.1 mmol/L -2.0-3.0 PATIENT TEMPERATURE (BEAKER) (test amzv=5713) 36.6 C FIO2 (BEAKER) (test jzag=0948) 32.0 % BLOOD GAS, [id number] 07:45:00 Test Item Value Reference Range Comments PH ARTERIAL (BEAKER) (test zoyl=612) 7.41 7.35-7.45 PCO2 ARTERIAL (BEAKER) (test uvvk=881) 36 mmHg 35-45 PO2 ARTERIAL (BEAKER) (test ryir=420) 122 mmHg 80-90 O2 SATURATION ARTERIAL (BEAKER) (test crsx=127) 98.5 % 96.0-97.0 HCO3 ARTERIAL (BEAKER) (test ajvv=405) 22 mmol/L 21-29 BASE EXCESS ARTERIAL (BEAKER) (test bcdd=930) -2.1 mmol/L -2.0-3.0 PATIENT TEMPERATURE (BEAKER) (test manl=0529) 36.5 C FIO2 (BEAKER) (test jxdu=6330) 40.0 % POCT-GLUCOSE [id number] 07:21:00 Test Item Value Reference Range Comments POC-GLUCOSE METER (BEAKER) 108 mg/dL 70-110 TESTED AT [facility] [address] [facility] (test dyft=7880) [facility] [address] RAD, CHEST, 1 VIEW, NON [id number] 04:59:00while patient is intubated or has chest tubes.Reason for exam:->cabgShould this be performed at the bedside ?->YesFINAL REPORT CLINICAL INDICATION: Postop Comparison: 09/09/2017 The cardiomediastinal contours are stable. Central pulmonary vascular congestion and bilateral parenchymal and pleural opacities are unchanged. There is no pneumothorax. Support lines are stable. Signed: Chris Velazco MDReport Verified Date/Time: 09/10/2017 04:59:34 Reading Location : [address] Reading Room [id number] 04:56:00 Test Item Value Reference Range Comments PHOSPHORUS (BEAKER) (test iwjf=236) 4.5 mg/dL 2.3-4.7 [id number] 04:56:00 Test Item Value Reference Range Comments MAGNESIUM (BEAKER) (test cegr=322) 2.1 mg/dL 1.6-2.6 BASIC METABOLIC [id number] 04:56:00 Test Item Value Reference Range Comments SODIUM (BEAKER) (test 137 meq/L 136-145 biso=951) POTASSIUM (BEAKER) (test 4.6 meq/L 3.5-5.1 ceuw=663) CHLORIDE (BEAKER) (test 106 meq/L 98-107 immz=804) CO2 (BEAKER) (test 21 meq/L 22-29 djww=270) BLOOD UREA NITROGEN 34 mg/dL 7-21 (BEAKER) (test rqyt=326) CREATININE (BEAKER) (test 1.68 mg/dL 0.57-1.25 sxul=667) GLUCOSE RANDOM (BEAKER) 109 mg/dL 70-105 (test xmwb=565) CALCIUM (BEAKER) (test 8.4 mg/dL 8.4-10.2 hadu=036) EGFR (BEAKER) (test 39 mL/min/1.73 sq m ESTIMATED GFR IS NOT czrj=1721) ACCURATE CREATININE CLEARANCE IN PREDICTING GLOMERULAR FILTRATION RATE. ESTIMATED GFR IS NOT APPLICABLE FOR DIALYSIS PATIENTS. Specimen slightly ictericLACTIC ACID, ARTERIAL, WHOLE [id number] 04:40:00 Test Item Value Reference Range Comments LACTATE BLOOD ARTERIAL (2) (BEAKER) (test 1.0 mmol/L 0.5-2.2 dkar=6832) Effective 10/04/2015: Units/Reference Range ChangeNew: 0.5-2.2 mmol/L Previous: 5 -20 mg/dLSpecimen slightly ictericOXYGEN SATURATION, [id number] 04:35:00 Test Item Value Reference Range Comments O2 SATURATION (MEASURED) (BEAKER) (test wsce=0798) 67.2 % BLOOD GAS, [id number] 04:29:00 Test Item Value Reference Range Comments PH ARTERIAL (BEAKER) (test wrpf=439) 7.42 7.35-7.45 PCO2 ARTERIAL (BEAKER) (test gxkk=959) 36 mmHg 35-45 PO2 ARTERIAL (BEAKER) (test tlfd=337) 120 mmHg 80-90 O2 SATURATION ARTERIAL (BEAKER) (test cpgh=124) 98.4 % 96.0-97.0 HCO3 ARTERIAL (BEAKER) (test inld=287) 23 mmol/L 21-29 BASE EXCESS ARTERIAL (BEAKER) (test ssyl=479) -1.3 mmol/L -2.0-3.0 PATIENT TEMPERATURE (BEAKER) (test vqjt=3583) 37.4 C FIO2 (BEAKER) (test lxaf=5201) 40.0 % CALCIUM, [id number] 04:29:00 Test Item Value Reference Range Comments CALCIUM IONIZED (BEAKER) (test tqra=224) 1.06 mmol/L 1.12-1.27 PH, BLOOD (BEAKER) (test mgfk=5570) 7.42 CT, BRAIN, WITHOUT [id number] 01:35:00FINAL REPORT CT, BRAIN, WITHOUT CONTRAST INDICATION: Confusion/delirium, altered LOC , unexplained TECHNIQUE: Noncontrast axial imaging was obtained from the vertex to the skull base. Axial images were reconstructed using a bone algorithm. DOSE REDUCTION: Dose modulation, iterative reconstruction, and/or weight-based adjustment of the mA/kV was utilized to reduce the radiation dose to as low as reasonably achievable. COMPARISON: None. FINDINGS: Cerebral parenchyma: Diffuse parenchymal volume loss. Appearance of the white matter suggests chronic microvascular disease.Midline structures: Normally positioned.Cerebellum and brainstem: Commensurate volume loss.Ventricles: Normal volume.Extra-axial spaces : Unremarkable. Calvarium and skull base: Intact.Paranasal sinuses and mastoid air cells: Visible chambers are clear.Orbital contents: Included portions unremarkable. Additional findings: None. IMPRESSION: Chronic involutional changes without acute intracranial abnormality. Ifthere is persistent clinical concern for intracranial pathology, MR examination is recommended for further characterization. Signed: JR Underwood Robert MDReport Verified Date/Time: 09/10/2017 01:35:00 Reading Location: [facility] C013Y CT Body Reading Room POCT- GLUCOSE [id number] 00:38:00 Test Item Value Reference Range Comments POC-GLUCOSE METER (BEAKER) 110 mg/dL 70-110 TESTED AT [facility] [address] [facility] (test yjzy=5245) [facility] [address] POCT-GLUCOSE [id number] 00:38:00 Test Item Value Reference Range Comments POC-GLUCOSE METER (BEAKER) 117 mg/dL 70-110 TESTED AT [facility] [address] [facility] (test ziaj=1209) [facility] [address] POCT-GLUCOSE [id number] 00:38:00 Test Item Value Reference Range Comments POC-GLUCOSE METER (BEAKER) 94 mg/dL 70-110 TESTED AT [facility] [address] [facility] (test jptu=8031) [facility] [address] RAD, CHEST, 1 VIEW, NON [id number] 21:17:00Reason for exam:->s/p ACBFINAL REPORT CLINICAL INDICATION: Postop Comparison: Same date at 1322 hoursThe cardiomediastinal contours are stable. Central pulmonary vascular prominence and bilateral parenchymal and pleural opacities are unchanged. There is no pneumothorax. Decreasing subcutaneous emphysema overlies the left chest wall. Support lines are stable. Signed: Chris Velazco MDReport Verified Date/Time: 09/09/2017 21:17:09 Reading Location: [address] Reading Room CALCIUM, [id number] 19:51:00 Test Item Value Reference Range Comments CALCIUM IONIZED (BEAKER) (test ebhl=838) 1.09 mmol/L 1.12-1.27 PH, BLOOD (BEAKER) (test uthv=0045) 7.37 [id number] 19:50:00 Test Item Value Reference Range Comments HEMOGLOBIN (BEAKER) (test dukv=090) 9.0 GM/DL 13.7-17.5 For hypotensionHEMOGLOBIN AND [id number] 19:50:00 Test Item Value Reference Range Comments HEMOGLOBIN (BEAKER) (test mnbx=652) 9.0 GM/DL 13.7-17.5 HEMATOCRIT (BEAKER) (test hhmx=495) 27.2 % 40.1-51.0 For hypotensionBLOOD GAS, [id number] 17:33:00 Test Item Value Reference Range Comments PH ARTERIAL (BEAKER) (test nhnx=574) 7.40 7.35-7.45 PCO2 ARTERIAL (BEAKER) (test uavh=772) 36 mmHg 35-45 PO2 ARTERIAL (BEAKER) (test pzav=061) 166 mmHg 80-90 O2 SATURATION ARTERIAL (BEAKER) (test llph=824) 99.1 % 96.0-97.0 HCO3 ARTERIAL (BEAKER) (test hukp=159) 22 mmol/L 21-29 BASE EXCESS ARTERIAL (BEAKER) (test dghe=992) -2.9 mmol/L -2.0-3.0 PATIENT TEMPERATURE (BEAKER) (test dxhe=9105) 36.4 C FIO2 (BEAKER) (test yosr=3812) 40.0 % THROMBOELASTOGRAPH (TEG)2017-09-09 14:58:00 Test Item Value Reference Range Comments TEG ACTIVATED CLOTTING TIME (BEAKER) (test 3.7 minutes 4.0-7.0 xseq=1205) TEG FIBRINOGEN ACTIVITY (BEAKER) (test 69.9 degrees 61.0-73.0 jotb=0170) TEG PLT. AGGREGATION (BEAKER) (test wxyk=7774) 58.5 MM 55.0-65.0 TEG FIBRINOLYSIS (BEAKER) (test qsxd=8439) 0.0 % 0.0-5.0 TGH ACTIVATED CLOTTING TIME (BEAKER) (test 3.8 minutes 4.0-7.0 jwur=9827) TGH FIBRINOGEN ACTIVITY (BEAKER) (test 70.4 degrees 61.0-73.0 osok=9557) TGH PLT. AGGREGATION (BEAKER) (test ztrj=7862) 57.5 MM 55.0-65.0 TGH FIBRINOLYSIS (BEAKER) (test mmny=1720) 0.0 % 0.0-5.0 RAD, CHEST, 1 VIEW, NON [id number] 14:12:00Reason for exam:->cabgShould this be performed at the bedside?->YesFINAL REPORT INDICATION: cabg COMPARISON: September 07, 2017 TECHNIQUE: Chest radiograph, single view, portable technique. FINDINGS / IMPRESSION: Endotracheal tube may be in high position, terminating 7.0 cm above the dilshad. There is a nasogastric tube with the tip projecting over the heart; recommend repositioning. Single mediastinal tube and single left apical chest tube noted. Patient is status post coronary artery bypass. No mediastinal widening, apical cap, or pulmonary edema. There is a small amount of left chest wall emphysema without a discrete pneumothorax demonstrated. Median sternotomy wires noted. Signed: Markie Chairez MDReport Verified Date/Time: 09/09/2017 14:12:51 Reading Location: [facility] Women Electronically signed by: MARKIE CHAIREZ M.D. on 2017 02:12 [id number] 13:25:00 Test Item Value Reference Range Comments PHOSPHORUS (BEAKER) (test urro=765) 4.8 mg/dL 2.3-4.7 [id number] 13:25:00 Test Item Value Reference Range Comments MAGNESIUM (BEAKER) (test usbi=389) 2.8 mg/dL 1.6-2.6 BASIC METABOLIC [id number] 13:25:00 Test Item Value Reference Range Comments SODIUM (BEAKER) (test 134 meq/L 136-145 ccmb=291) POTASSIUM (BEAKER) (test 4.5 meq/L 3.5-5.1 wopw=494) CHLORIDE (BEAKER) (test 102 meq/L 98-107 lqzs=508) CO2 (BEAKER) (test 21 meq/L 22-29 othc=188) BLOOD UREA NITROGEN 39 mg/dL 7-21 (BEAKER) (test ujhv=043) CREATININE (BEAKER) (test 1.69 mg/dL 0.57-1.25 tspx=233) GLUCOSE RANDOM (BEAKER) 117 mg/dL 70-105 (test egpa=364) CALCIUM (BEAKER) (test 9.6 mg/dL 8.4-10.2 hgzg=497) EGFR (BEAKER) (test 39 mL/min/1.73 sq m ESTIMATED GFR IS NOT xbod=4168) ACCURATE CREATININE CLEARANCE IN PREDICTING GLOMERULAR FILTRATION RATE. ESTIMATED GFR IS NOT APPLICABLE FOR DIALYSIS PATIENTS. Specimen slightly ictericLACTIC ACID, ARTERIAL, WHOLE [id number] 13:24:00 Test Item Value Reference Range Comments LACTATE BLOOD ARTERIAL (2) 1.8 mmol/L 0.5-2.2 Specimen slightly hemolyzed (BEAKER) (test qsok=3347) Effective 10/04/2015: Units/Reference Range ChangeNew: 0.5-2.2 mmol/L Previous: 5 -20 mg/dLFor occult hypoperfusionPROTHROMBIN [id number] 13:18:00 Test Item Value Reference Range Comments PROTIME (BEAKER) (test xipz=171) 20.8 seconds 11.7-14.7 INR (BEAKER) (test cnko=649) 1.8 <=5.9 RECOMMENDED COUMADIN/WARFARIN INR THERAPY RANGESSTANDARD DOSE: 2.0 - 3.0 Includes: PROPHYLAXIS forvenous thrombosis, systemic embolization; TREATMENT for venous thrombosis and/or pulmonary embolus.HIGH RISK: Target INR is 2.5-3.5 for patients with mechanical heart valves.[id number] 13:18:00 Test Item Value Reference Range Comments FIBRINOGEN LEVEL (BEAKER) (test otiy=077) 256 mg/dl 225-434 [id number] 13:18:00 Test Item Value Reference Range Comments PARTIAL THROMBOPLASTIN TIME (BEAKER) (test 34.3 seconds 22.5-36.0 lfie=776) CBC W/PLT COUNT & AUTO [id number] 13:12:00 Test Item Value Reference Range Comments WHITE BLOOD CELL COUNT (BEAKER) (test beog=881) 16.5 K/ L 3.5-10.5 RED BLOOD CELL COUNT (BEAKER) (test pacf=294) 3.41 M/ L 4.63-6.08 HEMOGLOBIN (BEAKER) (test nmxy=254) 10.1 GM/DL 13.7-17.5 HEMATOCRIT (BEAKER) (test iacm=797) 30.7 % 40.1-51.0 MEAN CORPUSCULAR VOLUME (BEAKER) (test xgff=191) 90.0 fL 79.0-92.2 MEAN CORPUSCULAR HEMOGLOBIN (BEAKER) (test 29.6 pg 25.7-32.2 dcbx=888) MEAN CORPUSCULAR HEMOGLOBIN CONC (BEAKER) (test 32.9 GM/DL 32.3-36.5 bypz=124) RED CELL DISTRIBUTION WIDTH (BEAKER) (test 14.6 % 11.6-14.4 ntsx=584) PLATELET COUNT (BEAKER) (test remr=642) 151 K/CU MM 150-450 MEAN PLATELET VOLUME (BEAKER) (test gdvy=840) 10.6 fL 9.4-12.4 NUCLEATED RED BLOOD CELLS (BEAKER) (test 0 /100 WBC 0-0 hzhf=283) NEUTROPHILS RELATIVE PERCENT (BEAKER) (test 79 % rzyv=057) LYMPHOCYTES RELATIVE PERCENT (BEAKER) (test 10 % cwhe=847) MONOCYTES RELATIVE PERCENT (BEAKER) (test 7 % sqpx=156) EOSINOPHILS RELATIVE PERCENT (BEAKER) (test 3 % flvz=559) BASOPHILS RELATIVE PERCENT (BEAKER) (test 0 % zhmr=731) NEUTROPHILS ABSOLUTE COUNT (BEAKER) (test 12.94 K/ L 1.78-5.38 qjjx=068) LYMPHOCYTES ABSOLUTE COUNT (BEAKER) (test 1.71 K/ L 1.32-3.57 vriy=439) MONOCYTES ABSOLUTE COUNT (BEAKER) (test 1.13 K/ L 0.30-0.82 wgbg=385) EOSINOPHILS ABSOLUTE COUNT (BEAKER) (test 0.53 K/ L 0.04-0.54 reur=942) BASOPHILS ABSOLUTE COUNT (BEAKER) (test 0.05 K/ L 0.01-0.08 mizx=063) IMMATURE GRANULOCYTES-RELATIVE PERCENT (BEAKER) 1 % 0-1 (test ibsu=5353) BLOOD GAS, [id number] 13:08:00 Test Item Value Reference Range Comments PH ARTERIAL (BEAKER) (test uwnz=220) 7.37 7.35-7.45 PCO2 ARTERIAL (BEAKER) (test dodv=668) 38 mmHg 35-45 PO2 ARTERIAL (BEAKER) (test vabe=637) 174 mmHg 80-90 O2 SATURATION ARTERIAL (BEAKER) (test jtol=653) 99.2 % 96.0-97.0 HCO3 ARTERIAL (BEAKER) (test dcla=007) 21 mmol/L 21-29 BASE EXCESS ARTERIAL (BEAKER) (test licx=562) -3.9 mmol/L -2.0-3.0 PATIENT TEMPERATURE (BEAKER) (test odzf=4277) 36.4 C FIO2 (BEAKER) (test hpop=0609) 80.0 % SODIUM NA-STAT [id number] 13:08:00 Test Item Value Reference Range Comments SODIUM (BEAKER) (test wddl=952) 129 meq/L 135-148 GLUCOSE-STAT [id number] 13:08:00 Test Item Value Reference Range Comments GLUCOSE RANDOM (BEAKER) (test btbq=843) 113 mg/dL 70-110 HGB/HCT (H&H) - STAT [id number] 13:08:00 Test Item Value Reference Range Comments HEMOGLOBIN (BEAKER) (test ihfs=072) 10.9 g/dL 13.0-16.8 HEMATOCRIT (BEAKER) (test kfxl=301) 32.0 % 40.0-50.0 PLATELET [id number] 13:06:00 Test Item Value Reference Range Comments PLATELET COUNT (BEAKER) (test hbji=481) 151 K/CU MM 150-450 OXYGEN SATURATION, [id number] 13:06:00 Test Item Value Reference Range Comments O2 SATURATION (MEASURED) (BEAKER) (test xrhq=0070) 74.0 % For occult hypoperfusionPOTASSIUM-STAT [id number] 13:06:00 Test Item Value Reference Range Comments POTASSIUM (BEAKER) (test iijc=349) 4.3 meq/L 3.6-5.5 CALCIUM, [id number] 13:05:00 Test Item Value Reference Range Comments CALCIUM IONIZED (BEAKER) (test bmqk=851) 1.20 mmol/L 1.12-1.27 PH, BLOOD (BEAKER) (test urse=1969) 7.36 THROMBOELASTOGRAPH (TEG)2017-09-09 12:12:00 Test Item Value Reference Range Comments TEG ACTIVATED CLOTTING TIME (BEAKER) (test 4.5 minutes 4.0-7.0 hwfe=1959) TEG FIBRINOGEN ACTIVITY (BEAKER) (test 74.8 degrees 61.0-73.0 qzzd=3003) TEG PLT. AGGREGATION (BEAKER) (test ieyf=7731) 69.5 MM 55.0-65.0 TGH ACTIVATED CLOTTING TIME (BEAKER) (test 4.8 minutes 4.0-7.0 ofhy=6094) TGH FIBRINOGEN ACTIVITY (BEAKER) (test 71.4 degrees 61.0-73.0 hzsb=7232) TGH PLT. AGGREGATION (BEAKER) (test xafz=0832) 66.8 MM 55.0-65.0 [id number] 11:54:00 Test Item Value Reference Range Comments ACTIVATED CLOTTING TIME 109 sec TESTED AT [facility] [id number] (BEAKER) (test tdid=990) [place] [id number] 11:54:00 Test Item Value Reference Range Comments ACTIVATED CLOTTING TIME 510 sec TESTED AT [facility] [address] (BEAKER) (test wdyc=048) [place] [id number] 11:54:00 Test Item Value Reference Range Comments ACTIVATED CLOTTING TIME 483 sec TESTED AT [place] [id number] (BEAKER) (test sups=357) [place] [address] [id number] 11:54:00 Test Item Value Reference Range Comments ACTIVATED CLOTTING TIME 450 sec TESTED AT [facility] [address] (BEAKER) (test dzvf=916) [place] [address] PROTHROMBIN [id number] 11:41:00 Test Item Value Reference Range Comments PROTIME (BEAKER) (test ialk=319) 23.4 seconds 11.7-14.7 INR ([facility]) (test kzeb=840) 2.1 <=5.9 RECOMMENDED COUMADIN/WARFARIN INR THERAPY RANGESSTANDARD DOSE: 2.0 - 3.0 Includes: PROPHYLAXIS forvenous thrombosis, systemic embolization; TREATMENT for venous thrombosis and/or pulmonary embolus.HIGH RISK: Target INR is 2.5-3.5 for patients with mechanical heart valves.[id number] 11:41:00 Test Item Value Reference Range Comments FIBRINOGEN LEVEL (BEAKER) (test fdpy=734) 231 mg/dl 225-434 [id number] 11:41:00 Test Item Value Reference Range Comments PARTIAL THROMBOPLASTIN TIME (BEAKER) (test 35.0 seconds 22.5-36.0 rhzk=574) PLATELET [id number] 11:26:00 Test Item Value Reference Range Comments PLATELET COUNT (BEAKER) (test jaml=785) 134 K/CU MM 150-450 BLOOD GAS, [id number] 11:16:00 Test Item Value Reference Range Comments PH ARTERIAL (BEAKER) (test zfdd=976) 7.45 7.35-7.45 PCO2 ARTERIAL (BEAKER) (test tvvw=235) 32 mmHg 35-45 PO2 ARTERIAL (BEAKER) (test hxfo=624) 317 mmHg 80-90 O2 SATURATION ARTERIAL (BEAKER) (test iehv=947) 99.8 % 96.0-97.0 HCO3 ARTERIAL (BEAKER) (test bpzr=780) 22 mmol/L 21-29 BASE EXCESS ARTERIAL (BEAKER) (test wmve=210) -1.8 mmol/L -2.0-3.0 PATIENT TEMPERATURE (BEAKER) (test kyhm=3710) 35.9 C FIO2 (BEAKER) (test yhay=2503) 100.0 % SODIUM NA-STAT [id number] 11:16:00 Test Item Value Reference Range Comments SODIUM (BEAKER) (test rubq=324) 129 meq/L 135-148 HGB/HCT (H&H) - STAT [id number] 11:16:00 Test Item Value Reference Range Comments HEMOGLOBIN (BEAKER) (test knnj=408) 8.4 g/dL 13.0-16.8 HEMATOCRIT (BEAKER) (test onjp=689) 25.0 % 40.0-50.0 GLUCOSE-STAT [id number] 11:15:00 Test Item Value Reference Range Comments GLUCOSE RANDOM (BEAKER) (test vbri=657) 98 mg/dL 70-110 POTASSIUM-STAT [id number] 11:15:00 Test Item Value Reference Range Comments POTASSIUM (BEAKER) (test ccdu=565) 4.1 meq/L 3.6-5.5 CALCIUM, [id number] 11:15:00 Test Item Value Reference Range Comments CALCIUM IONIZED (BEAKER) (test gdio=368) 1.13 mmol/L 1.12-1.27 PH, BLOOD (BEAKER) (test okgp=3712) 7.44 GLUCOSE-STAT [id number] 10:35:00 Test Item Value Reference Range Comments GLUCOSE RANDOM (BEAKER) (test nfkh=430) 81 mg/dL 70-110 POTASSIUM-STAT [id number] 10:35:00 Test Item Value Reference Range Comments POTASSIUM (BEAKER) (test xivz=143) 4.8 meq/L 3.6-5.5 BLOOD GAS, [id number] 10:35:00 Test Item Value Reference Range Comments PH ARTERIAL (BEAKER) (test dgsr=168) 7.52 7.35-7.45 PCO2 ARTERIAL (BEAKER) (test ssam=428) 27 mmHg 35-45 PO2 ARTERIAL (BEAKER) (test modn=439) 228 mmHg 80-90 O2 SATURATION ARTERIAL (BEAKER) (test dsgk=820) 99.6 % 96.0-97.0 HCO3 ARTERIAL (BEAKER) (test yzqq=457) 22 mmol/L 21-29 BASE EXCESS ARTERIAL (BEAKER) (test jdwh=512) -1.1 mmol/L -2.0-3.0 PATIENT TEMPERATURE (BEAKER) (test bqjl=3152) 35.3 C FIO2 (BEAKER) (test rfwh=0859) 70.0 % SODIUM NA-STAT [id number] 10:35:00 Test Item Value Reference Range Comments SODIUM (BEAKER) (test tmlk=233) 128 meq/L 135-148 HGB/HCT (H&H) - STAT [id number] 10:35:00 Test Item Value Reference Range Comments HEMOGLOBIN (BEAKER) (test xphq=719) 8.1 g/dL 13.0-16.8 HEMATOCRIT (BEAKER) (test rnef=517) 24.0 % 40.0-50.0 SODIUM NA-STAT [id number] 10:08:00 Test Item Value Reference Range Comments SODIUM (BEAKER) (test ntwp=763) 129 meq/L 135-148 HGB/HCT (H&H) - STAT [id number] 10:08:00 Test Item Value Reference Range Comments HEMOGLOBIN (BEAKER) (test saac=598) 8.7 g/dL 13.0-16.8 HEMATOCRIT (BEAKER) (test uzkg=019) 26.0 % 40.0-50.0 GLUCOSE-STAT [id number] 10:07:00 Test Item Value Reference Range Comments GLUCOSE RANDOM (BEAKER) (test lnqf=052) 82 mg/dL 70-110 POTASSIUM-STAT [id number] 10:07:00 Test Item Value Reference Range Comments POTASSIUM (BEAKER) (test dshl=521) 4.4 meq/L 3.6-5.5 BLOOD GAS, [id number] 10:07:00 Test Item Value Reference Range Comments PH ARTERIAL (BEAKER) (test mezv=936) 7.31 7.35-7.45 PCO2 ARTERIAL (BEAKER) (test oenv=254) 47 mmHg 35-45 PO2 ARTERIAL (BEAKER) (test udqt=935) 391 mmHg 80-90 O2 SATURATION ARTERIAL (BEAKER) (test eweg=598) 99.8 % 96.0-97.0 HCO3 ARTERIAL (BEAKER) (test oqrt=193) 25 mmol/L 21-29 BASE EXCESS ARTERIAL (BEAKER) (test dcod=857) -2.8 mmol/L -2.0-3.0 PATIENT TEMPERATURE (BEAKER) (test vvib=7563) 30.0 C FIO2 (BEAKER) (test qxav=4346) 70.0 % SODIUM NA-STAT [id number] 09:26:00 Test Item Value Reference Range Comments SODIUM (BEAKER) (test msxq=218) 129 meq/L 135-148 HGB/HCT (H&H) - STAT [id number] 09:26:00 Test Item Value Reference Range Comments HEMOGLOBIN (BEAKER) (test sqyc=942) 10.3 g/dL 13.0-16.8 HEMATOCRIT (BEAKER) (test ijhn=738) 30.0 % 40.0-50.0 CALCIUM, [id number] 09:25:00 Test Item Value Reference Range Comments CALCIUM IONIZED (BEAKER) (test ylna=651) 1.06 mmol/L 1.12-1.27 PH, BLOOD (BEAKER) (test uvdd=1055) 7.45 BLOOD GAS, [id number] 09:25:00 Test Item Value Reference Range Comments PH ARTERIAL (BEAKER) (test ouja=586) 7.46 7.35-7.45 PCO2 ARTERIAL (BEAKER) (test ibdf=318) 35 mmHg 35-45 PO2 ARTERIAL (BEAKER) (test xzwe=763) 348 mmHg 80-90 O2 SATURATION ARTERIAL (BEAKER) (test vjki=524) 99.8 % 96.0-97.0 HCO3 ARTERIAL (BEAKER) (test qqor=924) 25 mmol/L 21-29 BASE EXCESS ARTERIAL (BEAKER) (test nrcw=627) 0.9 mmol/L -2.0-3.0 PATIENT TEMPERATURE (BEAKER) (test gony=8551) 36.0 C FIO2 (BEAKER) (test wxzy=5202) 100.0 % GLUCOSE-STAT [id number] 09:11:00 Test Item Value Reference Range Comments GLUCOSE RANDOM (BEAKER) (test iowd=147) 101 mg/dL 70-110 POTASSIUM-STAT [id number] 09:11:00 Test Item Value Reference Range Comments POTASSIUM (BEAKER) (test lnra=878) 3.9 meq/L 3.6-5.5 POCT-GLUCOSE [id number] 07:11:00 Test Item Value Reference Range Comments POC-GLUCOSE METER (BEAKER) 93 mg/dL 70-110 TESTED AT [address] (test mqdc=6944) [place] [id number] POCT-GLUCOSE [id number] 05:54:00 Test Item Value Reference Range Comments POC-GLUCOSE METER (BEAKER) 59 mg/dL 70-110 TESTED AT [address] (test bmjf=0144) [place] [id number] BASIC METABOLIC [id number] 05:09:00 Test Item Value Reference Range Comments SODIUM (BEAKER) (test 135 meq/L 136-145 jfpz=534) POTASSIUM (BEAKER) (test 4.2 meq/L 3.5-5.1 mauz=985) CHLORIDE (BEAKER) (test 99 meq/L 98-107 zzcb=837) CO2 (BEAKER) (test 28 meq/L 22-29 prxf=589) BLOOD UREA NITROGEN 44 mg/dL 7-21 (BEAKER) (test niue=376) CREATININE (BEAKER) (test 2.16 mg/dL 0.57-1.25 navq=934) GLUCOSE RANDOM (BEAKER) 56 mg/dL 70-105 (test mdeq=462) CALCIUM (BEAKER) (test 9.1 mg/dL 8.4-10.2 rcyi=330) EGFR (BEAKER) (test 29 mL/min/1.73 sq m ESTIMATED GFR IS NOT qoxe=3395) ACCURATE CREATININE CLEARANCE IN PREDICTING GLOMERULAR FILTRATION RATE. ESTIMATED GFR IS NOT APPLICABLE FOR DIALYSIS PATIENTS. [id number] 04:56:00 Test Item Value Reference Range Comments PARTIAL THROMBOPLASTIN TIME (BEAKER) (test 35.6 seconds 22.5-36.0 jacq=298) PROTHROMBIN [id number] 04:55:00 Test Item Value Reference Range Comments PROTIME (BEAKER) (test ephv=131) 17.8 seconds 11.7-14.7 INR (BEAKER) (test nxll=290) 1.5 <=5.9 RECOMMENDED COUMADIN/WARFARIN INR THERAPY RANGESSTANDARD DOSE: 2.0 - 3.0 Includes: PROPHYLAXIS forvenous thrombosis, systemic embolization; TREATMENT for venous thrombosis and/or pulmonary embolus.HIGH RISK: Target INR is 2.5-3.5 for patients with mechanical heart valves.POCT-GLUCOSE [id number] 21:20:00 Test Item Value Reference Range Comments POC-GLUCOSE METER (BEAKER) 101 mg/dL 70-110 TESTED AT [address] (test bneo=0010) [place] [address] POCT-GLUCOSE [id number] 16:36:00 Test Item Value Reference Range Comments POC-GLUCOSE METER (BEAKER) 112 mg/dL 70-110 TESTED AT [address] (test tpmx=2317) [place] [address] B-TYPE NATRIURETIC FACTOR (BNP)2017-09-08 14:47:00 Test Item Value Reference Range Comments B-TYPE NATRIURETIC PEPTIDE (BEAKER) (test 1769 pg/mL 0-100 tolw=485) With next blood drawPOCT-GLUCOSE [id number] 11:43:00 Test Item Value Reference Range Comments POC-GLUCOSE METER (BEAKER) 167 mg/dL 70-110 TESTED AT [address] (test zwma=4220) [place] [address] POCT-GLUCOSE [id number] 07:16:00 Test Item Value Reference Range Comments POC-GLUCOSE METER (BEAKER) 86 mg/dL 70-110 TESTED AT [address] (test mqnw=3256) [place] [address] BASIC METABOLIC [id number] 05:34:00 Test Item Value Reference Range Comments SODIUM (BEAKER) (test 133 meq/L 136-145 llzz=514) POTASSIUM (BEAKER) (test 4.5 meq/L 3.5-5.1 erne=705) CHLORIDE (BEAKER) (test 99 meq/L 98-107 eett=210) CO2 (BEAKER) (test 24 meq/L 22-29 dkar=584) BLOOD UREA NITROGEN 46 mg/dL 7-21 (BEAKER) (test oqvd=229) CREATININE (BEAKER) (test 2.19 mg/dL 0.57-1.25 qsur=505) GLUCOSE RANDOM (BEAKER) 105 mg/dL 70-105 (test tzxp=274) CALCIUM (BEAKER) (test 9.4 mg/dL 8.4-10.2 vhhe=690) EGFR (BEAKER) (test 29 mL/min/1.73 sq m ESTIMATED GFR IS NOT ihuz=6432) ACCURATE CREATININE CLEARANCE IN PREDICTING GLOMERULAR FILTRATION RATE. ESTIMATED GFR IS NOT APPLICABLE FOR DIALYSIS PATIENTS. [id number] 04:38:00 Test Item Value Reference Range Comments PARTIAL THROMBOPLASTIN TIME (BEAKER) (test 31.5 seconds 22.5-36.0 ywug=457) PROTHROMBIN TIME/[id number] 04:37:00 Test Item Value Reference Range Comments PROTIME (BEAKER) (test lmkn=078) 18.2 seconds 11.7-14.7 INR (BEAKER) (test whhz=489) 1.5 <=5.9 RECOMMENDED COUMADIN/WARFARIN INR THERAPY RANGESSTANDARD DOSE: 2.0 - 3.0 Includes: PROPHYLAXIS forvenous thrombosis, systemic embolization; TREATMENT for venous thrombosis and/or pulmonary embolus.HIGH RISK: Target INR is 2.5-3.5 for patients with mechanical heart valves.BASIC METABOLIC [id number] 23:53: 00 Test Item Value Reference Range Comments SODIUM (BEAKER) (test 129 meq/L 136-145 swmq=707) POTASSIUM (BEAKER) (test 5.1 meq/L 3.5-5.1 Specimen slightly kbea=848) hemolyzed CHLORIDE (BEAKER) (test 99 meq/L 98-107 zzbl=979) CO2 (BEAKER) (test 19 meq/L 22-29 rqbk=786) BLOOD UREA NITROGEN 45 mg/dL 7-21 (BEAKER) (test yzfu=527) CREATININE (BEAKER) (test 2.26 mg/dL 0.57-1.25 Specimen slightly atbm=396) hemolyzed GLUCOSE RANDOM (BEAKER) 198 mg/dL 70-105 (test jrza=645) CALCIUM (BEAKER) (test 9.1 mg/dL 8.4-10.2 lwyt=932) EGFR (BEAKER) (test 28 mL/min/1.73 sq m ESTIMATED GFR IS NOT xokj=6832) ACCURATE CREATININE CLEARANCE IN PREDICTING GLOMERULAR FILTRATION RATE. ESTIMATED GFR IS NOT APPLICABLE FOR DIALYSIS PATIENTS. [id number] 23:48:00 Test Item Value Reference Range Comments PHOSPHORUS (BEAKER) (test 4.3 mg/dL 2.3-4.7 Specimen slightly hemolyzed oksq=158) [id number] 23:42:00 Test Item Value Reference Range Comments MAGNESIUM (BEAKER) (test tkcj=643) 2.0 mg/dL 1.6-2.6 [id number] 23:37:00 Test Item Value Reference Range Comments PARTIAL THROMBOPLASTIN TIME (BEAKER) (test 32.3 seconds 22.5-36.0 oxfr=358) PROTHROMBIN TIME/[id number] 23:36:00 Test Item Value Reference Range Comments PROTIME (BEAKER) (test psrd=119) 18.6 seconds 11.7-14.7 INR (BEAKER) (test hdhx=395) 1.6 <=5.9 RECOMMENDED COUMADIN/WARFARIN INR THERAPY RANGESSTANDARD DOSE: 2.0 - 3.0 Includes: PROPHYLAXIS forvenous thrombosis, systemic embolization; TREATMENT for venous thrombosis and/or pulmonary embolus.HIGH RISK: Target INR is 2.5-3.5 for patients with mechanical heart valves.CBC W/PLT COUNT & AUTO [id number] 23:29:00 Test Item Value Reference Range Comments WHITE BLOOD CELL COUNT (BEAKER) (test twpy=242) 9.6 K/ L 3.5-10.5 RED BLOOD CELL COUNT (BEAKER) (test xsoy=999) 3.43 M/ L 4.63-6.08 HEMOGLOBIN (BEAKER) (test ilfu=635) 10.0 GM/DL 13.7-17.5 HEMATOCRIT (BEAKER) (test prcy=729) 31.5 % 40.1-51.0 MEAN CORPUSCULAR VOLUME (BEAKER) (test hnbb=853) 91.8 fL 79.0-92.2 MEAN CORPUSCULAR HEMOGLOBIN (BEAKER) (test 29.2 pg 25.7-32.2 suid=153) MEAN CORPUSCULAR HEMOGLOBIN CONC (BEAKER) (test 31.7 GM/DL 32.3-36.5 zjbt=381) RED CELL DISTRIBUTION WIDTH (BEAKER) (test 14.5 % 11.6-14.4 bwga=655) PLATELET COUNT (BEAKER) (test bbkf=976) 176 K/CU MM 150-450 MEAN PLATELET VOLUME (BEAKER) (test lxjx=040) 11.1 fL 9.4-12.4 NUCLEATED RED BLOOD CELLS (BEAKER) (test 0 /100 WBC 0-0 duog=894) NEUTROPHILS RELATIVE PERCENT (BEAKER) (test 79 % ntsy=246) LYMPHOCYTES RELATIVE PERCENT (BEAKER) (test 10 % ujyv=032) MONOCYTES RELATIVE PERCENT (BEAKER) (test 10 % xmgr=171) EOSINOPHILS RELATIVE PERCENT (BEAKER) (test 0 % vhzq=819) BASOPHILS RELATIVE PERCENT (BEAKER) (test 0 % agqn=842) NEUTROPHILS ABSOLUTE COUNT (BEAKER) (test 7.56 K/ L 1.78-5.38 esfc=174) LYMPHOCYTES ABSOLUTE COUNT (BEAKER) (test 1.00 K/ L 1.32-3.57 cqye=119) MONOCYTES ABSOLUTE COUNT (BEAKER) (test 0.95 K/ L 0.30-0.82 ehsy=840) EOSINOPHILS ABSOLUTE COUNT (BEAKER) (test 0.03 K/ L 0.04-0.54 fvqz=063) BASOPHILS ABSOLUTE COUNT (BEAKER) (test 0.02 K/ L 0.01-0.08 vmxp=265) IMMATURE GRANULOCYTES-RELATIVE PERCENT (BEAKER) 1 % 0-1 (test osiv=9021) POCT-GLUCOSE [id number] 23:25:00 Test Item Value Reference Range Comments POC-GLUCOSE METER (BEAKER) 212 mg/dL 70-110 TESTED AT [address] (test sovk=5943) [facility] [address] RAD, CHEST, 2 [id number] 22:44:00Reason for exam:->preopFINAL REPORT INDICATION: preop COMPARISON: September 04, 2017 TECHNIQUE: Frontal and lateral views of the chest. FINDINGS: Lungs and pleura: Redemonstration of bilateral interstitial changes. Small bilateral pleural effusions are present.Heart and mediastinum: Cardiac size is enlarged. Aortic caliber is normal. Calcific atherosclerosis is present.Osseous structures: No acute abnormality.Additional findings: None. IMPRESSION: Stable sequela of congestive failure. Signed: JR Underwood Robert MDReport Verified Date/Time : 09/07/2017 22:44:39 Reading Location: [facility] B1 C013Y CT Body Reading Room HEMOGLOBIN [id number] 14:19:00 Test Item Value Reference Range Comments HEMOGLOBIN A1C (KRISTINA) (test cqou=056) 8.4 % 4.3-6.1 RAD, CHEST, 2 [id number] 11:22:00Reason for Exam:->Pre-OpFINAL REPORT Chest two views Discussion: There is interstitial congestion with patchy basilar opacities right greater than left and suspected small effusions. Heart size upper limits of normal. No pneumothorax. Findings suggest CHF. Signed: Susannah Pope Verified Date/Time: 09/04/2017 11:22 :30 Reading Location: [facility] Radiology Reading Room
[2019-07-20 15:14] VITALS: BMI 31.4
[2019-07-20] MEDS ORDERED: HYDROMORPHONE HCL 1 MG/ML INJ IV PRN (15:17)
[2019-07-20] MEDS ORDERED: CEFOXITIN/SWI 1gm 1 GM/10 ML SYR IV SCH ×2 (15:30→20:00)
[2019-07-20] MEDS ORDERED: GLUCAGON 1 MG/VIAL IM PRN (15:57)
[2019-07-20] MEDS ORDERED: LOPERAMIDE HCL 2 MG CAPSULE PO PRN (16:00)
[2019-07-20] MEDS ORDERED: DIPHENHYDRAMINE 25 MG TAB/CAP PO PRN (16:00)
[2019-07-20] MEDS ORDERED: ONDANSETRON 4 MG (ODT) TAB PO PRN (16:00)
[2019-07-20] MEDS ORDERED: ONDANSETRON 4 MG/2 ML VIAL IV PRN (16:00)
[2019-07-20] MEDS ORDERED: POLYETHYL GLY 3350 17 GM/DOSE PO PRN (16:00)
[2019-07-20] MEDS ORDERED: ACETAMINOPHEN 325 MG TABLET PO PRN (16:00)
[2019-07-20] MEDS ORDERED: NACHLORIDE 0.45% 1,000 ML IV SCH ×2 (16:00→20:00)
[2019-07-20] MEDS: METRONIDAZOLE 500mg IVPB 500 MG/100 ML BAG IV SCH (16:15)
[2019-07-20] MEDS: INSULIN -REGULAR HUMAN 50 UNIT/0.5 ML ML SQ SCH ×2 (16:30→21:00)
[2019-07-20 16:40] LABS: Basophils % 0.4 % (0-1.3); Hematocrit 34.3 % (39.6-49.0); Lymphocytes % 7.5 % (15.3-44.8); MPV 8.5 fL (7.6-11.3); RBC Red Blood Cell Count 4.14 M/uL (4.33-5.43)
[2019-07-20 16:42] LABS: Protime INR 3.29
[2019-07-20 17:15] LABS: Albumin 2.7 g/dL (3.4-5.0); Bilirubin Direct 0.3 mg/dL (0-0.2); Bilirubin Total 0.9 mg/dL (0.2-1.0); Magnesium 1.9 mg/dL (1.8-2.4); Phosphorus 2.4 mg/dL (2.5-4.9); Protein, Total 7.4 g/dL (6.4-8.2); Thyroid Stimulating Hormone 0.955 uIU/mL (0.360-3.740)
[2019-07-20] MEDS ORDERED: TRAMADOL HCL 50 MG PO PRN (17:58)
[2019-07-20 18:11] LABS: Urine Appearance CLEAR; Urine Bilirubin NEGATIVE (NEG); Urine Blood NEGATIVE (NEG); Urine Color YELLOW; Urine Glucose NEGATIVE (NEG); Urine Protein 1+ (NEG)
[2019-07-20 18:33] LABS: Urine Bacteria <20 /HPF (NONE SEEN); Urine RBC <5 /HPF (NONE SEEN)
[2019-07-20 18:34] LABS: Urine Culture Reflex Order NOT NEEDED
--- NOTE | 2019-07-20 19:03 | RAD REPORT ---
EXAM DESCRIPTION: CT - Abdomen Pelvis W Contrast - 07/20/2019 6:42 pm CLINICAL HISTORY: abdominal pain COMPARISON: No comparisons TECHNIQUE: Biphasic, helical CT imaging of the abdomen and pelvis was performed following 100 ml non -ionic IV contrast. Oral contrast was given. All CT scans are performed using dose optimization technique as appropriate and may include automated exposure control or mA/KV adjustment according to patient size. FINDINGS: No suspicious findings in the lung bases. Patient has a large hiatal hernia with approxima tely 50% of the stomach intrathoracic. Assessment is limited in the stomach is herniated. No gross ga stric abnormality seen. The liver, spleen, and pancreas show no suspicious findings. Liver shows fatty infiltration pattern. No gallbladder or biliary tree abnormality. Normal right renal function is seen. No hydronephrosis or mass of the right kidney. Patient has a sma ll benign posterior mid right renal cyst. Left kidney is abnormal. There is severe hydronephrosis dil ating the pelvis and calices. There is pronounced renal cortical thinning. There is still some functi on from the thin renal parenchyma. Dilatation does not extend into the ureter. 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 No pyelonephritis or acute parenchymal process. No bladder abnormalities. No adrenal abnormalities. Duodenum and small bowel to the distal ileum shows no suspicious finding. There is wall thickening an d edema of the terminal ileum. Tip of the cecum is abnormal. The appendix is grossly abnormal. Append ix is dilated with poorly defined izquierdo. There is fluid and stranding in the right lower quadrant. No abscess or free air. No extravasation of the oral contrast which has reached the left-side of the co nelly. The patient has prominent sigmoid diverticulosis without diverticulitis. No free air or pneumatosis. No other sites of inflammatory stranding. No mass or bulky lymphadenopath y. Small fat only right inguinal hernia is present. No disc or bone acute finding. Degenerative changes are present. Dense arterial tree calcifications a re present. Significant L3-4 spinal stenosis is present. Findings telephoned to the referring physician 6:58 p.m. IMPRESSION: Acute appendicitis with probable perforation. No abscess, free air or extravasation of oral contrast. Secondary involvement of the terminal ileum is present with wall thickening and edema. Large hiatal hernia with 50% of the stomach intrathoracic. 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 No acute findin g.
--- NOTE | 2019-07-20 19:04 | RAD REPORT ---
EXAM DESCRIPTION: RAD - Chest Pa And Lat (2 Views) - 07/20/2019 6:52 pm CLINICAL HISTORY: abdomen pain, appendicitis COMPARISON: Chest Pa And Lat (2 Views) dated 11/20/2018; Chest Single View dated 09/07/2017 TECHNIQUE: Frontal and lateral views of the chest were obtained. FINDINGS: The lungs are fibrotic with the interstitial pattern accentuated by shallow inspiration. M ild interstitial edema or infiltrate could be masked. No significant failure or volume overload. Defi brillator is in place. Sternotomy wires in place. Heart size is upper normal. Trachea is midline. No vascular engorgement. Moderately large hiatal he rnia is present. No pleural effusion or pneumothorax seen. No acute bony finding noted. No aortic a bnormality. IMPRESSION: No peripheral mass or consolidation. Chronic interstitial lung disease is present potentially masking mild edema or infiltrate. Moderately large hiatal hernia.
[2019-07-20 19:06] LABS: UR MICROALBUMIN 9.8 mg/dL (< 1.9)
[2019-07-20] MEDS ORDERED: INSULIN GLARGINE HUM REC ANLOG 60 UNIT SQ SCH (21:00)
[2019-07-20] MEDS: ATORVASTATIN CALCIUM 20 MG PO SCH (21:00)
[2019-07-20] MEDS: TRAZODONE 100 MG PO SCH (21:00)
[2019-07-21] MEDS: METRONIDAZOLE 500mg IVPB 500 MG/100 ML BAG IV SCH ×3 (00:41→16:37)
[2019-07-21] MEDS: D50W 25 GM/50 ML SYRINGE/VIAL IV PRN ×2 (00:48→06:30)
[2019-07-21] MEDS: CEFOXITIN/SWI 1gm 1 GM/10 ML SYR IV SCH ×2 (03:38→16:37)
[2019-07-21] MEDS: INSULIN -REGULAR HUMAN 50 UNIT/0.5 ML ML SQ SCH ×4 (05:48→20:07)
[2019-07-21 05:57] LABS: Absolute Lymphocytes (CBC) 0.9 K/uL (0.7-4.9); Basophils % 0.4 % (0-1.3); Hematocrit 33.3 % (39.6-49.0); Lymphocytes % 7.8 % (15.3-44.8); MPV 8.4 fL (7.6-11.3); RBC Red Blood Cell Count 4.05 M/uL (4.33-5.43)
[2019-07-21 06:41] LABS: Magnesium 1.9 mg/dL (1.8-2.4); Potassium 4.1 mmol/L (3.5-5.1)
[2019-07-21] MEDS ORDERED: D5 0.45 NS 1,000 ML IV SCH (07:00)
[2019-07-21] MEDS ORDERED: HOME MED 1 EA UNK (Rivaroxaban [Xarelto] 20 MG) PO SCH (09:00)
[2019-07-21] MEDS ORDERED: ENOXAPARIN 30 MG/0.3 ML SQ SCH (09:00)
[2019-07-21] MEDS ORDERED: HOME MED 1 EA UNK (Potassium Chloride [Potassium Chloride] 20 MEQ) PO SCH (09:00)
--- NOTE | 2019-07-21 10:22 | EKG ---
Test Date: 2019-07-20 Test Time: 17:53:11 Goggles Assembler: ENOC MEASUREMENT RESULTS: Intervals: Rate: 83 IL: 158 QRSD: 144 QT: 438 QTc: 514 [place]: P: 41 IL: 158 QRS: 135 T: -12 INTERPRETIVE STATEMENTS: Electronic ventricular pacemaker Compared to ECG 09/07/2017 16:32:16 Sinus bradycardia no longer present Atrial premature complex(es) no longer present Left bundle-branch block no longer present Electronically Signed On 07-21-19 10:21:29 TRIAGE CLINICIAN by Isreal Mondragon
--- NOTE | 2019-07-21 10:33 | CON ---
Date of Consultation: 07/21/2019 Reason For Consultation: Perforated appendicitis. History Of Present Illness: Patient is an 89-year-old gentleman, who went to Dr. Salmon's office yest erday because he was feeling some lower abdominal pain and fever, low-grade over the last 2 or 3 days . He states that he has had pain on that side for about a week and no vomiting but he has had some d ry heaves. No diarrhea or constipation. No blood in his stool. No dysuria or hematuria. No sore t hroat, runny nose, cough, headaches, or dizziness. No chest pain and low-grade fever as described be fore. Patient was examined by Dr. Salmon and he has suspected pathology in his abdomen. He was admit shay. CAT scan was done, and findings were discussed with the radiologist. Review of Systems: Otherwise unremarkable. Past Medical History: Significant for diabetes, hypertension, dyslipidemia, esophageal stenosis and history of colonic polyps. His last colonoscopy was a year ago. 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 Medications: Reviewed. Patient is on Xarelto. Past Surgical History: Back surgery. Allergies: NONE. Social History: Patient does not smoke or drink. Family History: Noncontributory. Physical Examination: Vital Signs: Stable. He is afebrile. General: He is awake, alert, and oriented x3. Head and Neck: Cranial nerves 2 through 12 grossly within normal limits. No neck masses. No JVD. Throat clear. Neck is supple. Chest: Clear. Heart: S1 and S2. Abdomen: Soft, nondistended. No Rovsing sign. There is tenderness in the right mid and right lower abdomen. There is no peritonitis. There is minimal rebound. No rigidity. No guarding. Extremity: Adequately perfused. Nontender. Neuro: Nonfocal. His white count on admission was 14,000 this morning, is 11,600 with a left shift. His INR is 3.29. Chemistry reviewed. CT of the abdomen and pelvis reviewed with the radiologist, shows perforated ap pendicitis and no abscess and not amenable to percutaneous drainage. There is no free air. There wa s no extravasation of oral contrast. There is secondary involvement of the terminal ileum with thick ening and edema. There is a large hiatal hernia. There is chronic left UPJ obstruction with signifi cant left renal cortical thinning. No acute findings. Assessment: Perforated appendicitis in a patient who is anticoagulated. Recommendations: As patient is clinically stable we will hold the Xarelto for 24 to 36 hours and pro bably Friday. We will proceed with a lap appendectomy, possible open. The patient and family unders tand the risks, benefits, and alternatives and agrees to procedure, more detail will be discussed wit h the family. Plan of care was discussed with Dr. Llamas as well as Dr. Salmon. IV antibiotics in the meantime, keep the patient on clear liquids. Once his INR normalize or close to normal, then we will proceed with surgery. /MODL Voice ID: [id number] Report ID: [id number]
[2019-07-21] MEDS: NACHLORIDE 0.45% 1,000 ML IV SCH (13:38)
[2019-07-21] MEDS ORDERED: FUROSEMIDE 20 MG PO SCH (17:00)
--- NOTE | 2019-07-21 17:28 | PN ---
Subjective: Mr. Nyalor is doing great. This morning, his all pain has disappeared now. Does not have any nausea, vomiting, diarrhea. Objective: Vital Signs: Blood pressure 122/59, pulse is 80, temperature 97.5. HEENT: No JVD. No carotid bruits. Chest: Clear. Heart: Regular. Abdomen: Soft. It was diffusely tender yesterday. Laboratory Data: INR is 3.29 on Xarelto. Creatinine is 1.85 today, was 1.48 yesterday. This is aft er IV dye. Assessment: 1.Tiny acute appendicitis with rupture. It is contained appendicitis. Dr. Coffey will do surgery in 2 days from now after holding Xarelto. 2.INR is high because of Xarelto. 3.Dehydration. We will give him IV fluids at 100 cc/hour to make sure we do not develop worsening r enal failure. He is a diabetic, elderly, and may have renal function problem just because of being a diabetic. Prognosis overall fair. He should do well with surgery. RVD/MODL Voice ID: [id number] Report ID: [id number]
[2019-07-21] MEDS: INSULIN GLARGINE HUM REC ANLOG U SQ SCH (21:00)
[2019-07-21] MEDS: ATORVASTATIN CALCIUM 20 MG PO SCH (21:00)
[2019-07-21] MEDS: TRAZODONE 100 MG PO SCH (21:00)
[2019-07-22] MEDS: NACHLORIDE 0.45% 1,000 ML IV SCH ×3 (01:12→19:00)
[2019-07-22] MEDS: METRONIDAZOLE 500mg IVPB 500 MG/100 ML BAG IV SCH ×3 (01:12→17:04)
[2019-07-22] MEDS: CEFOXITIN/SWI 1gm 1 GM/10 ML SYR IV SCH ×2 (03:08→17:04)
[2019-07-22 04:58] LABS: Absolute Lymphocytes (CBC) 1.1 K/uL (0.7-4.9); Basophils % 0.7 % (0-1.3); Hematocrit 32.4 % (39.6-49.0); Lymphocytes % 10.4 % (15.3-44.8); Protime INR 1.73; RBC Red Blood Cell Count 3.96 M/uL (4.33-5.43)
[2019-07-22 05:08] LABS: Magnesium 1.8 mg/dL (1.8-2.4); Potassium 3.9 mmol/L (3.5-5.1)
[2019-07-22] MEDS ORDERED: MAGNESIUM SULFATE 1 gm IVPB 1 GM/100 ML BAG IV ONE (05:34)
[2019-07-22] MEDS: INSULIN -REGULAR HUMAN 50 UNIT/0.5 ML ML SQ SCH ×4 (07:30→21:18)
[2019-07-22] MEDS: Metoprolol Succinate (Toprol Xl) 25 MG TABLETS PO SCH ×2 (09:00→10:16)
[2019-07-22] MEDS: FAMOTIDINE 40 MG PO SCH ×2 (09:00→10:14)
[2019-07-22] MEDS: LOSARTAN POTASSIUM 25 MG PO SCH ×2 (09:00→10:14)
[2019-07-22] MEDS ORDERED: POTASSIUM CL SA 10 MEQ TAB PO ONE (09:00)
--- NOTE | 2019-07-22 13:49 | PN ---
Date of Progress Note: 07/22/2019 Subjective: The patient is awake, alert, tolerating clear liquids. No pain. Is hungry, wants regul ar food. Objective: Vital Signs: Stable. He is afebrile. Abdomen: Soft, nondistended. Very minimal tenderness on the right middle and right lower quadrant. No peritonitis at all. His white count is normal and his left shift is almost normalized as well. Assessment: Contained perforated appendicitis. Patient clinically improving on antibiotics. Recommendations: After discussion with Dr. Salmon, we feel that the patient is doing well with conser vative treatment. We will continue him on antibiotics. We will advance his diet as tolerated and we will send him home on oral antibiotics for a couple of weeks. We will repeat the CAT scan as an out patient and we will do an interval appendectomy. In the meantime, should the patient's clinical scen ario worsen, obviously we can intervene sooner, but this will allow better possibility for a laparosc opic procedure. Right now, the inflammation is so great that going in at this time would put the pat ient at a high risk for an open procedure and he needs anticoagulation as well and therefore would be a high risk of bleeding. So given the overall clinical picture, the best approach would be to try t o see if we can treat the patient with antibiotics now and try to do an interval appendectomy. The p faisal of care was discussed in detail with Dr. Salmon as well as his son. /MODL Voice ID: [id number] Report ID: [id number]
[2019-07-22] MEDS: TRAZODONE 100 MG PO SCH (21:08)
[2019-07-22] MEDS: ATORVASTATIN CALCIUM 20 MG PO SCH (21:09)
[2019-07-22] MEDS: INSULIN GLARGINE HUM REC ANLOG U SQ SCH (21:12)
--- NOTE | 2019-07-22 22:57 | PN ---
Subjective: Mr. Naylor is great. Denies any chest pain, nausea, vomiting. His abdominal pain has gone within 12 hours of antibiotics. Objective: Vital Signs: Blood pressure 137/62, pulse is 102, temperature 97.9. HEENT: No JVD. No carotid bruits. Patient is elderly, kyphotic. Chest: Clear. Heart: Regular. Abdomen: Soft. No guarding. No rebound or rigidity. Laboratory Examination: White count is down to normal at 10,600. BUN 16, creatinine 1.76, improving . Assessment And Plan: Acute appendicitis. This appendicular rupture can be the cause of possibly fro m his 3-year-old grandson jumping on his abdomen and might have appendicular damage from it. In any case, he needs appendectomy, but Dr. Coffey is wanting to do an an elective appendectomy now as he has done really well with antibiotics. We will be sending him home on antibiotics orally trying to let the infection resolve and inflammation around the appendix to resolve before Dr. Coffey can do a lapar oscopic surgery. Currently, he is very stable. He will possibly go home tomorrow with Xarelto 15 mg once a day and oral antibiotics in addition to his other medications. MERRICK/MODL Voice ID: [id number] Report ID: [id number]
[2019-07-23] MEDS: METRONIDAZOLE 500mg IVPB 500 MG/100 ML BAG IV SCH ×2 (02:03→08:41)
[2019-07-23] MEDS: CEFOXITIN/SWI 1gm 1 GM/10 ML SYR IV SCH (04:25)
[2019-07-23] MEDS: NACHLORIDE 0.45% 1,000 ML IV SCH (05:00)
[2019-07-23 05:26] LABS: Basophils % 0.5 % (0-1.3); Hematocrit 32.2 % (39.6-49.0); Lymphocytes % 11.4 % (15.3-44.8); RBC Red Blood Cell Count 3.91 M/uL (4.33-5.43)
[2019-07-23 05:35] LABS: Magnesium 1.9 mg/dL (1.8-2.4); Potassium 4.1 mmol/L (3.5-5.1)
[2019-07-23] MEDS: INSULIN -REGULAR HUMAN 50 UNIT/0.5 ML ML SQ SCH (07:30)
[2019-07-23 08:15] VITALS: BP 107/57; TEMP 97.8
[2019-07-23] MEDS: FAMOTIDINE 40 MG PO SCH (08:41)
[2019-07-23] MEDS: LOSARTAN POTASSIUM 25 MG PO SCH (08:42)
[2019-07-23] MEDS: Metoprolol Succinate (Toprol Xl) 25 MG TABLETS PO SCH (08:44)
[2019-07-23 09:51] VITALS: O2SAT 96
[2019-07-23] MEDS ORDERED: RIVAROXABAN 15 MG TABLET PO SCH (17:00)
--- NOTE | 2019-07-23 21:19 | P.DS ---
Admission Date: 07/21/19 Discharge Date: 07/23/19 Disposition: ROUTINE DISCHARGE Discharge Condition: [facility] Hospital Course: MR. DELACRUZ HAD ACUTE ABDOMEN PAIN SP 5 YEAR OLD GREAT [employer] KID JUMPING ON HIS STOMACH. HE HAS ACUTE APPENDICITIS ON CT SCAN . HE IMPROVED VERY WELL WITHIN 12 HOURS OF AB. PLAN IS TO CONTINUE CEFTIN AND HAVE HIM COME BACK FOR ELECTIVE APPENDECTOMY BY DR. COFFEY IT WILL BE LESS INVASIVE AFTER ABX GIVEN TO HIM. FAMILY AND PATIENT UNDERSTOOD. Vital Signs/Physical Exam: Temp Pulse Resp BP Pulse Ox 97.8 F 83 15 107/57 L 96 07/23/19 08:00 07/23/19 08:00 07/23/19 08:00 07/23/19 08:00 07/23/19 08:00 Laboratory Data at Discharge: WBC 9.2 K/uL (4.3-10.9) 07/23/19 05:01 Hgb 10.6 g/dL (13.6-17.9) L 07/23/19 05:01 Hct 32.2 % (39.6-49.0) L 07/23/19 05:01 Plt Count 200 K/uL (152-406) 07/23/19 05:01 PT 20.0 SECONDS (9.5-12.5) H 07/22/19 04:12 INR 1.73 07/22/19 04:12 APTT 42.5 SECONDS (24.3-36.9) H 07/20/19 16:09 Sodium 138 mmol/L (136-145) 07/23/19 05:01 Potassium 4.1 mmol/L (3.5-5.1) 07/23/19 05:01 BUN 15 mg/dL (7-18) 07/23/19 05:01 Creatinine 1.82 mg/dL (0.55-1.3) H 07/23/19 05:01 Glucose 166 mg/dL (74-106) H 07/23/19 05:01 Phosphorus 2.4 mg/dL (2.5-4.9) L 07/20/19 16:09 Magnesium 1.9 mg/dL (1.8-2.4) 07/23/19 05:01 Total Bilirubin 0.9 mg/dL (0.2-1.0) 07/20/19 16:09 AST 19 U/L (15-37) 07/20/19 16:09 ALT 20 U/L (12-78) 07/20/19 16:09 Alkaline Phosphatase 123 U/L (45-117) H 07/20/19 16:09 Home Medications: Atorvastatin Calcium [Lipitor*] 20 mg PO BEDTIME 07/20/19 Ergocalciferol (Vitamin D2) [Vitamin D2] 1.25 mg PO EVERY 7TH DAY 07/20/19 Famotidine 40 mg PO DAILY 07/20/19 Insulin Glargine,Hum.rec.anlog [Basaglar Kwikpen U-100] 60 units SQ BEDTIME Magnesium Oxide 400 mg PO BID 07/20/19 Metoprolol Succinate [Toprol Xl*] 25 mg PO DAILY 07/20/19 Trazodone [Desyrel*] 100 mg PO BEDTIME 07/20/19 traMADol HCL [Ultram*] 50 mg PO BIDP PRN 07/20/19 Amlodipine [Norvasc*] 2.5 mg PO DAILY #90 tab 07/23/19 Cefuroxime [Ceftin] 250 mg PO BID #20 tab 07/23/19 Rivaroxaban [Xarelto*] 15 mg PO DAILY AT SUPPER #30 tablet 07/23/19 New Medications: Amlodipine [Norvasc*] 2.5 mg PO DAILY #90 tab Cefuroxime [Ceftin] 250 mg PO BID #20 tab Rivaroxaban [Xarelto*] 15 mg PO DAILY AT SUPPER #30 tablet Followup: [place] MD [Primary Care Provider] - (call to schedule appointment) Frankie Coffey MD [ACTIVE - CAN ADMIT] - (call to for follow up appointment)
== END 2019-07-23 09:25 | disposition home or self-care (01) | DRG 372 ==
LOC: 4TH 14:34 → OBSVTOIN 07-21 11:58
PROVIDERS: ADMIT Internal Medicine; ATTEND Internal Medicine
DX: K35.32 Acute appendicitis with perforation, localized peritonitis, and gangrene, without abscess (principal); N18.4 Chronic kidney disease, stage 4 (severe); I48.20 Chronic atrial fibrillation, unspecified; E11.22 Type 2 diabetes mellitus with diabetic chronic kidney disease; E11.59 Type 2 diabetes mellitus with other circulatory complications; I12.9 Hypertensive chronic kidney disease with stage 1 through stage 4 chronic kidney disease, or unspecified chronic kidney disease; E86.0 Dehydration; D64.9 Anemia, unspecified; D89.2 Hypergammaglobulinemia, unspecified; I25.10 Atherosclerotic heart disease of native coronary artery without angina pectoris; M47.816 Spondylosis without myelopathy or radiculopathy, lumbar region; J84.10 Pulmonary fibrosis, unspecified; Z79.4 Long term (current) use of insulin
CPT/HCPCS: 36415; 71046; 74177; 80048; 80076; 81001; 82043; 82306; 82570; 82607; 82947; 83036; 83735; 84100; 84443; 85025; 85610; 85730; 87040; 87086; 87088; 87205; 93005; G0378; G0379; J3475; J7799; Q9967

== ENCOUNTER 2021-07-18 19:25 | Inpatient (IN) | payer OTHER, MEDICARE ==
--- OUTSIDE RECORDS SUMMARY | 2021-07-18 19:31 | XMS REPORT | Continuity of Care Document ---
:1930 Author Organization [facility] t Address [address] [place] [address] Care Team Providers Name Role Phone LISSETT ASHLEY Attending Clinician Unavailable LISSETT ASHLEY Admitting Clinician Unavailable Problems This patient has no known problems. Allergies, Adverse Reactions, Alerts This patient has no known allergies or adverse reactions. Medications This patient has no known medications. Procedures This patient has no known procedures. Results Test Description Test Time Test Comments Results Result Comments Source POCT-GLUCOSE METER 2017-09-17 12:06:00 Test Item Value Reference Range Interpretation Comme nts POC-GLUCOSE METER (BEAKER) (test 316 mg/dL 70-110 H Notified MIGEL MILLER/TESTED AT [facility] code = 1538) [address] [facility] [address] POCT-GLUCOSE [id number] 08:21:00 Test Item Value Reference Range Interpretation Comments POC-GLUCOSE METER 239 mg/dL 70-[address] [facility] 6720 (BEAKER) (test code = JAC Danielle [facility] 1538) [address] BASIC METABOLIC [id number] 06:33:00 Test Item Value Reference Range Interpretation Comments SODIUM (BEAKER) 138 meq/L 136-145 (test code = 381) POTASSIUM (BEAKER) 4.0 meq/L 3.5-5.1 Specimen slightly (test code = 379) hemolyzed CHLORIDE (BEAKER) 104 meq/L 98-107 (test code = 382) CO2 (BEAKER) (test 23 meq/L 22-29 code = 355) BLOOD UREA NITROGEN 29 mg/dL 7-21 H (BEAKER) (test code = 354) CREATININE (BEAKER) 1.47 mg/dL 0.57-1.25 H Specimen slightly (test code = 358) hemolyzed GLUCOSE RANDOM 180 mg/dL 70-105 H (BEAKER) (test code = 652) CALCIUM (BEAKER) 8.1 mg/dL 8.4-10.2 L (test code = 697) EGFR (BEAKER) (test 46 mL/min/1.73 ESTIMA MADISON GFR IS code = 1092) sq m NOT ACCURATE CREATININE CLEARANCE IN PREDICTING GLOMERULAR FILTRATION RATE . ESTIMATED GFR I S NOT APPLICABLE FOR DIALYSIS PATIEN TS. Specimen slightly ictericB-TYPE NATRIURETIC FACTOR (BNP)2017-09-17 06:31:00 Test Item Value Reference Range Interpretation Comments B-TYPE NATRIURETIC PEPTIDE 2250 pg/mL 0-100 H (BEAKER) (test code = 700) CBC W/PLT COUNT & AUTO [id number] 06:18:00 Test Item Value Reference Range Interpretation Comments WHITE BLOOD CELL COUNT (BEAKER) 13.7 K/ L 3.5-10.5 H (test code = 775) RED BLOOD CELL COUNT (BEAKER) 3.21 M/ L 4.63-6.08 L (test code = 761) HEMOGLOBIN (BEAKER) (test code = 9.3 GM/DL 13.7-17.5 L 410) HEMATOCRIT (BEAKER) (test code = 29.5 % 40.1-51.0 L 411) MEAN CORPUSCULAR VOLUME (BEAKER) 91.9 fL 79.0-92.2 (test code = 753) MEAN CORPUSCULAR HEMOGLOBIN 29.0 pg 25.7-32.2 (BEAKER) (test code = 751) MEAN CORPUSCULAR HEMOGLOBIN CONC 31.5 GM/DL 32.3-36.5 L (BEAKER) (test code = 752) RED CELL DISTRIBUTION WIDTH 16.3 % 11.6-14.4 H (BEAKER) (test code = 412) PLATELET COUNT (BEAKER) (test 226 K/CU MM 150-450 code = 756) MEAN PLATELET VOLUME (BEAKER) 9.8 fL 9.4-12.4 (test code = 754) NUCLEATED RED BLOOD CELLS 0 /100 WBC 0-0 (BEAKER) (test code = 413) NEUTROPHILS RELATIVE PERCENT 75 % (BEAKER) (test code = 429) LYMPHOCYTES RELATIVE PERCENT 11 % (BEAKER) (test code = 430) MONOCYTES RELATIVE PERCENT 9 % (BEAKER) (test code = 431) EOSINOPHILS RELATIVE PERCENT 3 % (BEAKER) (test code = 432) BASOPHILS RELATIVE PERCENT 0 % (BEAKER) (test code = 437) NEUTROPHILS ABSOLUTE COUNT 10.16 K/ L 1.78-5.38 H (BEAKER) (test code = 670) LYMPHOCYTES ABSOLUTE COUNT 1.44 K/ L 1.32-3.57 (BEAKER) (test code = 414) MONOCYTES ABSOLUTE COUNT (BEAKER) 1.27 K/ L 0.30-0.82 H (test code = 415) EOSINOPHILS ABSOLUTE COUNT 0.47 K/ L 0.04-0.54 (BEAKER) (test code = 416) BASOPHILS ABSOLUTE COUNT (BEAKER) 0.06 K/ L 0.01-0.08 (test code = 417) IMMATURE GRANULOCYTES-RELATIVE 2 % 0-1 H PERCENT (AKER) (test code = 2801) POCT-GLUCOSE [id number] 22:10:00 Test Item Value Reference Range Interpretation Comments POC-GLUCOSE METER 237 mg/dL 70-110 H TESTED AT [place] [address] ([facility]) (test code = JAC Danielle [facility] 1538) [id number] POCT-GLUCOSE [id number] 17:08:00 Test Item Value Reference Range Interpretation Comments POC-GLUCOSE METER 112 mg/dL 70-110 H TESTED AT [place] [address] ([facility]) (test code = [facility] Shashi [facility] 1538) [address] POCT-GLUCOSE [id number] 12:28:00 Test Item Value Reference Range Interpretation Comments POC-GLUCOSE METER 157 mg/dL 70-110 H TESTED AT [place] [address] ([facility]) (test code = [facility] Shashi [facility] 1538) [address] CBC W/PLT COUNT & AUTO [id number] 08:39:00 Test Item Value Reference Range Interpretation Comments WHITE BLOOD CELL COUNT (BEAKER) 14.6 K/ L 3.5-10.5 H (test code = 775) RED BLOOD CELL COUNT (BEAKER) 3.17 M/ L 4.63-6.08 L (test code = 761) HEMOGLOBIN (BEAKER) (test code = 9.4 GM/DL 13.7-17.5 L 410) HEMATOCRIT (BEAKER) (test code = 29.4 % 40.1-51.0 L 411) MEAN CORPUSCULAR VOLUME (AKER) 92.7 fL 79.0-92.2 H (test code = 753) MEAN CORPUSCULAR HEMOGLOBIN 29.7 pg 25.7-32.2 (BEAKER) (test code = 751) MEAN CORPUSCULAR HEMOGLOBIN CONC 32.0 GM/DL 32.3-36.5 L (BEAKER) (test code = 752) RED CELL DISTRIBUTION WIDTH 16.1 % 11.6-14.4 H (BEAKER) (test code = 412) PLATELET COUNT (BEAKER) (test 197 K/CU MM 150-450 code = 756) MEAN PLATELET VOLUME (BEAKER) 9.7 fL 9.4-12.4 (test code = 754) NUCLEATED RED BLOOD CELLS 1 /100 WBC 0-0 H (BEAKER) (test code = 413) NEUTROPHILS RELATIVE PERCENT 71 % (BEAKER) (test code = 429) LYMPHOCYTES RELATIVE PERCENT 11 % (BEAKER) (test code = 430) MONOCYTES RELATIVE PERCENT 11 % (BEAKER) (test code = 431) EOSINOPHILS RELATIVE PERCENT 5 % (BEAKER) (test code = 432) BASOPHILS RELATIVE PERCENT 0 % (BEAKER) (test code = 437) NEUTROPHILS ABSOLUTE COUNT 10.40 K/ L 1.78-5.38 H (BEAKER) (test code = 670) LYMPHOCYTES ABSOLUTE COUNT 1.56 K/ L 1.32-3.57 (BEAKER) (test code = 414) MONOCYTES ABSOLUTE COUNT (BEAKER) 1.53 K/ L 0.30-0.82 H (test code = 415) EOSINOPHILS ABSOLUTE COUNT 0.69 K/ L 0.04-0.54 H (BEAKER) (test code = 416) BASOPHILS ABSOLUTE COUNT (BEAKER) 0.04 K/ L 0.01-0.08 (test code = 417) IMMATURE GRANULOCYTES-RELATIVE 3 % 0-1 H PERCENT (BEAKER) (test code = 2801) (MANUAL DIFFERENTIAL)2017-09-16 08:39:00 Test Item Value Reference Range Interpretation Comments TOTAL COUNTED (BEAKER) (test code = 1351) POCT-GLUCOSE [id number] 07:24:00 Test Item Value Reference Range Interpretation Comments POC-GLUCOSE METER 203 mg/dL 70-[address] [facility] 6720 (BEAKER) (test code = JAC GUTIERREZ 1538) [address] [id number] 05:09:00 Test Item Value Reference Range Interpretation Comments MAGNESIUM (BEAKER) (test code = 1.7 mg/dL 1.6-2.6 627) BASIC METABOLIC [id number] 05:09:00 Test Item Value Reference Range Interpretation Comments SODIUM (BEAKER) 139 meq/L 136-145 (test code = 381) POTASSIUM (BEAKER) 4.5 meq/L 3.5-5.1 (test code = 379) CHLORIDE (BEAKER) 104 meq/L 98-107 (test code = 382) CO2 (BEAKER) (test 25 meq/L 22-29 code = 355) BLOOD UREA NITROGEN 34 mg/dL 7-21 H (BEAKER) (test code = 354) CREATININE (BEAKER) 1.47 mg/dL 0.57-1.25 H (test code = 358) GLUCOSE RANDOM 170 mg/dL 70-105 H (BEAKER) (test code = 652) CALCIUM (BEAKER) 8.6 mg/dL 8.4-10.2 (test code = 697) EGFR (BEAKER) (test 46 mL/min/1.73 ESTIMA MADISON GFR IS code = 1092) sq m NOT ACCURATE CREATININE CLEARANCE IN PREDICTING GLOMERULAR FILTRATION RATE . ESTIMATED GFR I S NOT APPLICABLE FOR DIALYSIS PATIEN TS. Specimen slightly ictericPOCT-GLUCOSE [id number] 21:48:00 Test Item Value Reference Range Interpretation Comments POC-GLUCOSE METER 204 mg/dL 70-[address] [facility] 6720 ([facility]) (test code = JAC Danielle [facility] 1538) [address] POCT-GLUCOSE [id number] 17:11:00 Test Item Value Reference Range Interpretation Comments POC-GLUCOSE METER 189 mg/dL 70-[address] [facility]20 [facility] 1538) [address] POCT-GLUCOSE [id number] 12:26:00 Test Item Value Reference Range Interpretation Comments POC-GLUCOSE METER 272 mg/dL 70-[address] [facility] 6720 ([facility]) (test code = JAC Danielle [facility] 1538) [address] CBC W/PLT COUNT & AUTO [id number] 09:35:00 Test Item Value Reference Range Interpretation Comments WHITE BLOOD CELL COUNT (BEAKER) 13.1 K/ L 3.5-10.5 H (test code = 775) RED BLOOD CELL COUNT (BEAKER) 3.22 M/ L 4.63-6.08 L (test code = 761) HEMOGLOBIN (BEAKER) (test code = 9.4 GM/DL 13.7-17.5 L 410) HEMATOCRIT (BEAKER) (test code = 30.0 % 40.1-51.0 L 411) MEAN CORPUSCULAR VOLUME (BEAKER) 93.2 fL 79.0-92.2 H (test code = 753) MEAN CORPUSCULAR HEMOGLOBIN 29.2 pg 25.7-32.2 (BEAKER) (test code = 751) MEAN CORPUSCULAR HEMOGLOBIN CONC 31.3 GM/DL 32.3-36.5 L (BEAKER) (test code = 752) RED CELL DISTRIBUTION WIDTH 15.9 % 11.6-14.4 H (BEAKER) (test code = 412) PLATELET COUNT (BEAKER) (test 183 K/CU MM 150-450 code = 756) MEAN PLATELET VOLUME (BEAKER) 10.5 fL 9.4-12.4 (test code = 754) NUCLEATED RED BLOOD CELLS 1 /100 WBC 0-0 H (BEAKER) (test code = 413) NEUTROPHILS RELATIVE PERCENT 70 % (BEAKER) (test code = 429) LYMPHOCYTES RELATIVE PERCENT 11 % (BEAKER) (test code = 430) MONOCYTES RELATIVE PERCENT 11 % (BEAKER) (test code = 431) EOSINOPHILS RELATIVE PERCENT 5 % (BEAKER) (test code = 432) BASOPHILS RELATIVE PERCENT 1 % (BEAKER) (test code = 437) NEUTROPHILS ABSOLUTE COUNT 9.13 K/ L 1.78-5.38 H (BEAKER) (test code = 670) LYMPHOCYTES ABSOLUTE COUNT 1.46 K/ L 1.32-3.57 (BEAKER) (test code = 414) MONOCYTES ABSOLUTE COUNT (BEAKER) 1.45 K/ L 0.30-0.82 H (test code = 415) EOSINOPHILS ABSOLUTE COUNT 0.60 K/ L 0.04-0.54 H (BEAKER) (test code = 416) BASOPHILS ABSOLUTE COUNT (BEAKER) 0.06 K/ L 0.01-0.08 (test code = 417) IMMATURE GRANULOCYTES-RELATIVE 3 % 0-1 H PERCENT (BEAKER) (test code = 2801) (MANUAL DIFFERENTIAL)2017-09-15 09:35:00 Test Item Value Reference Range Interpretation Comments TOTAL COUNTED (BEAKER) (test code = 1351) POCT-GLUCOSE [id number] 07:18:00 Test Item Value Reference Range Interpretation Comments POC-GLUCOSE METER 176 mg/dL 70-[address] [facility] 67 (BEAKER) (test code = JAC Danielle [place] 1538) [id number] 07:10:00 Test Item Value Reference Range Interpretation Comments MAGNESIUM (BEAKER) 2.0 mg/dL 1.6-2.6 Specimen slightly (test code = 627) hemolyzed BASIC METABOLIC [id number] 07:10:00 Test Item Value Reference Range Interpretation Comments SODIUM (BEAKER) 136 meq/L 136-145 (test code = 381) POTASSIUM (BEAKER) 4.2 meq/L 3.5-5.1 Specimen slightly (test code = 379) hemolyzed CHLORIDE (BEAKER) 103 meq/L 98-107 (test code = 382) CO2 (BEAKER) (test 22 meq/L 22-29 code = 355) BLOOD UREA NITROGEN 38 mg/dL 7-21 H (BEAKER) (test code = 354) CREATININE (BEAKER) 1.45 mg/dL 0.57-1.25 H Specimen slightly (test code = 358) hemolyzed GLUCOSE RANDOM 142 mg/dL 70-105 H (BEAKER) (test code = 652) CALCIUM (BEAKER) 8.3 mg/dL 8.4-10.2 L (test code = 697) EGFR (BEAKER) (test 46 mL/min/1.73 ESTIMA MADISON GFR IS code = 1092) sq m NOT ACCURATE CREATININE CLEARANCE IN PREDICTING GLOMERULAR FILTRATION RATE . ESTIMATED GFR I S NOT APPLICABLE FOR DIALYSIS PATIEN TS. Specimen slightly ictericPOCT-GLUCOSE [id number] 21:35:00 Test Item Value Reference Range Interpretation Comments POC-GLUCOSE METER 149 mg/dL 70-[address] [facility] 6720 (BEAKER) (test code = JAC Danielle [place] 1538) [address] POCT-GLUCOSE [id number] 17:26:00 Test Item Value Reference Range Interpretation Comments POC-GLUCOSE METER 95 mg/dL 70-110 TESTED AT [place] [address] (BEAKER) (test code = JAC Danielle [facility] [address] 1538) POCT-GLUCOSE [id number] 12:04:00 Test Item Value Reference Range Interpretation Comments POC-GLUCOSE METER 172 mg/dL 70-110 H TESTED AT [place] [address] ([facility]) (test code = GLENNNY Shashi [facility] 1538) [address] [id number] 08:25:00 Test Item Value Reference Range Interpretation Comments MAGNESIUM (BEAKER) (test code = 1.7 mg/dL 1.6-2.6 627) BASIC METABOLIC [id number] 08:25:00 Test Item Value Reference Range Interpretation Comments SODIUM (BEAKER) 136 meq/L 136-145 (test code = 381) POTASSIUM (BEAKER) 4.4 meq/L 3.5-5.1 (test code = 379) CHLORIDE (BEAKER) 103 meq/L 98-107 (test code = 382) CO2 (BEAKER) (test 20 meq/L 22-29 L code = 355) BLOOD UREA NITROGEN 38 mg/dL 7-21 H (BEAKER) (test code = 354) CREATININE (BEAKER) 1.39 mg/dL 0.57-1.25 H (test code = 358) GLUCOSE RANDOM 179 mg/dL 70-105 H (BEAKER) (test code = 652) CALCIUM (BEAKER) 8.3 mg/dL 8.4-10.2 L (test code = 697) EGFR (BEAKER) (test 49 mL/min/1.73 ESTIMA MADISON GFR IS code = 1092) sq m NOT ACCURATE CREATININE CLEARANCE IN PREDICTING GLOMERULAR FILTRATION RATE . ESTIMATED GFR I S NOT APPLICABLE FOR DIALYSIS PATIEN TS. Specimen slightly ictericPOCT-GLUCOSE [id number] 08:20:00 Test Item Value Reference Range Interpretation Comments POC-GLUCOSE METER 197 mg/dL 70-110 H TESTED AT [place] [address] ([facility]) (test code = [facility] Shashi [facility] 1538) [address] CBC W/PLT COUNT & AUTO [id number] 07:13:00 Test Item Value Reference Range Interpretation Comments WHITE BLOOD CELL COUNT (BEAKER) 13.5 K/ L 3.5-10.5 H (test code = 775) RED BLOOD CELL COUNT (BEAKER) 3.15 M/ L 4.63-6.08 L (test code = 761) HEMOGLOBIN (BEAKER) (test code = 9.2 GM/DL 13.7-17.5 L 410) HEMATOCRIT (BEAKER) (test code = 28.5 % 40.1-51.0 L 411) MEAN CORPUSCULAR VOLUME (BEAKER) 90.5 fL 79.0-92.2 (test code = 753) MEAN CORPUSCULAR HEMOGLOBIN 29.2 pg 25.7-32.2 (BEAKER) (test code = 751) MEAN CORPUSCULAR HEMOGLOBIN CONC 32.3 GM/DL 32.3-36.5 (BEAKER) (test code = 752) RED CELL DISTRIBUTION WIDTH 15.6 % 11.6-14.4 H (BEAKER) (test code = 412) PLATELET COUNT (BEAKER) (test 166 K/CU MM 150-450 code = 756) MEAN PLATELET VOLUME (BEAKER) 10.3 fL 9.4-12.4 (test code = 754) NUCLEATED RED BLOOD CELLS 1 /100 WBC 0-0 H (BEAKER) (test code = 413) NEUTROPHILS RELATIVE PERCENT 69 % (BEAKER) (test code = 429) LYMPHOCYTES RELATIVE PERCENT 11 % (BEAKER) (test code = 430) MONOCYTES RELATIVE PERCENT 13 % (BEAKER) (test code = 431) EOSINOPHILS RELATIVE PERCENT 4 % (BEAKER) (test code = 432) BASOPHILS RELATIVE PERCENT 0 % (BEAKER) (test code = 437) NEUTROPHILS ABSOLUTE COUNT 9.39 K/ L 1.78-5.38 H (BEAKER) (test code = 670) LYMPHOCYTES ABSOLUTE COUNT 1.54 K/ L 1.32-3.57 (BEAKER) (test code = 414) MONOCYTES ABSOLUTE COUNT (BEAKER) 1.75 K/ L 0.30-0.82 H (test code = 415) EOSINOPHILS ABSOLUTE COUNT 0.48 K/ L 0.04-0.54 (BEAKER) (test code = 416) BASOPHILS ABSOLUTE COUNT (BEAKER) 0.05 K/ L 0.01-0.08 (test code = 417) IMMATURE GRANULOCYTES-RELATIVE 2 % 0-1 H PERCENT (BEAKER) (test code = 2801) POCT-GLUCOSE [id number] 21:16:00 Test Item Value Reference Range Interpretation Comments POC-GLUCOSE METER 180 mg/dL 70-110 H TESTED AT [place] [address] ([facility]) (test code = JAC [place] 1538) [id number] POCT-GLUCOSE [id number] 17:23:00 Test Item Value Reference Range Interpretation Comments POC-GLUCOSE METER 102 mg/dL 70-110 TESTED AT [place] [address] ([facility]) (test code = JAC [place] 1538) [id number] POCT-GLUCOSE [id number] 12:27:00 Test Item Value Reference Range Interpretation Comments POC-GLUCOSE METER 173 mg/dL 70-110 H TESTED AT [place] [address] ([facility]) (test code = JAC Danielle [place] 1538) [address] POCT-GLUCOSE [id number] 08:51:00 Test Item Value Reference Range Interpretation Comments POC-GLUCOSE METER 218 mg/dL 70-110 H TESTED AT [place] [address] ([facility]) (test code = JAC Danielle [place] 1538) [address] RAD, CHEST, 1 VIEW, NON [id number] 05:37:00Reason for exam:->s/p BiV ICD implantShould this be performed at the bedside?->YesFINAL REPORT RAD, CHEST, 1 VIEW, NON DEPT INDICATION: s/p BiV ICD implant COMP ARISON: Prior day's exam TECHNIQUE: Portable frontal view of the chest. IMPRESSION: Interval removal of all lines and tubes.Stable cardiomegaly.Stable to slight worsening interstitial edema.No pneumothorax.No acute osseous abnormality. Signed: Toan Frias MDReport Verified Date/Time: 09/13/2017 0 5:37:41 Reading Location: [facility] B1 [id number] Ortho Consult Reading Room POCT-GLUCOSE [id number] 22:22:00 Test Item Value Reference Range Interpretation Comments POC-GLUCOSE METER 169 mg/dL 70-110 H TESTED AT [place] [address] ([facility]) (test code = JAC [place] 1538) [address] POCT-GLUCOSE [id number] 17:08:00 Test Item Value Reference Range Interpretation Comments POC-GLUCOSE METER 205 mg/dL 70-110 H TESTED AT [facility] 6720 (BEAKER) (test code = JAC [place] 1538) [id number] BASIC METABOLIC [id number] 14:35:00 Test Item Value Reference Range Interpretation Comments SODIUM (BEAKER) 136 meq/L 136-145 (test code = 381) POTASSIUM (BEAKER) 4.4 meq/L 3.5-5.1 (test code = 379) CHLORIDE (BEAKER) 105 meq/L 98-107 (test code = 382) CO2 (BEAKER) (test 20 meq/L 22-29 L code = 355) BLOOD UREA NITROGEN 34 mg/dL 7-21 H (BEAKER) (test code = 354) CREATININE (BEAKER) 1.49 mg/dL 0.57-1.25 H (test code = 358) GLUCOSE RANDOM 250 mg/dL 70-105 H (BEAKER) (test code = 652) CALCIUM (BEAKER) 8.1 mg/dL 8.4-10.2 L (test code = 697) EGFR (BEAKER) (test 45 mL/min/1.73 ESTIMA MADISON GFR IS code = 1092) sq m NOT ACCURATE CREATININE CLEARANCE IN PREDICTING GLOMERULAR FILTRATION RATE . ESTIMATED GFR I S NOT APPLICABLE FOR DIALYSIS PATIEN TS. Specimen slightly ictericCBC (HEMOGRAM ONLY)2017-09-12 14:18:00 Test Item Value Reference Range Interpretation Comments WHITE BLOOD CELL COUNT (BEAKER) 10.0 K/ L 3.5-10.5 (test code = 775) RED BLOOD CELL COUNT (BEAKER) 3.03 M/ L 4.63-6.08 L (test code = 761) HEMOGLOBIN (BEAKER) (test code = 8.9 GM/DL 13.7-17.5 L 410) HEMATOCRIT (BEAKER) (test code = 27.4 % 40.1-51.0 L 411) MEAN CORPUSCULAR VOLUME (BEAKER) 90.4 fL 79.0-92.2 (test code = 753) MEAN CORPUSCULAR HEMOGLOBIN 29.4 pg 25.7-32.2 (BEAKER) (test code = 751) MEAN CORPUSCULAR HEMOGLOBIN CONC 32.5 GM/DL 32.3-36.5 (BEAKER) (test code = 752) RED CELL DISTRIBUTION WIDTH 15.5 % 11.6-14.4 H (BEAKER) (test code = 412) PLATELET COUNT (BEAKER) (test 116 K/CU MM 150-450 L code = 756) MEAN PLATELET VOLUME (BEAKER) 10.1 fL 9.4-12.4 (test code = 754) NUCLEATED RED BLOOD CELLS 1 /100 WBC 0-0 H (BEAKER) (test code = 413) POCT-GLUCOSE [id number] 12:24:00 Test Item Value Reference Range Interpretation Comments POC-GLUCOSE METER 287 mg/dL 70-[address] [facility] 6720 (BEAKER) (test code = JAC [place] 1538) [address] RAD, CHEST, 1 VIEW, NON [id number] 08:32:00while patient is intubated or has chest tubes.Reason for exam:->cabgShould this be performed at the bedside?->YesFINAL REPORT Chest one view INDICATION: CABG COMPARISON: 09/11/2017 IMPRESSION: Support devices are stable. Median sternotomy changes and ICD are again noted. The cardiac silhouette is enlarged. Mediastinal prominence is stable. Pulmonary edema is similar in appearance. Dependentpleural effusions remain present with stable basilar airspace disease. Pneumonitis should be excluded clinically. No pneumothorax is seen. Signed: Roger Beckwith Verified Date/Time: 09/12/2017 08:32:57 Reading Location: [facility] Radiology Reading Room BLOOD GAS, [id number] 06:35:00 Test Item Value Reference Range Interpretation Comments PH ARTERIAL (BEAKER) (test code = 7.39 7.35-7.45 383) PCO2 ARTERIAL (BEAKER) (test code 33 mmHg 35-45 L = 384) PO2 ARTERIAL (BEAKER) (test code 129 mmHg 80-90 H = 385) O2 SATURATION ARTERIAL (BEAKER) 98.6 % 96.0-97.0 H (test code = 386) HCO3 ARTERIAL (BEAKER) (test code 20 mmol/L 21-29 L = 388) BASE EXCESS ARTERIAL (BEAKER) -4.6 mmol/L -2.0-3.0 L (test code = 387) PATIENT TEMPERATURE (BEAKER) 36.7 C (test code = 1818) FIO2 (BEAKER) (test code = 1819) 44.0 % CALCIUM, [id number] 05:49:00 Test Item Value Reference Range Interpretation Comments CALCIUM IONIZED (BEAKER) (test 1.06 mmol/L 1.12-1.27 L code = 698) PH, BLOOD (BEAKER) (test code = 7.33 1810) OXYGEN SATURATION, [id number] 05:48:00 Test Item Value Reference Range Interpretation Comments O2 SATURATION (MEASURED) (BEAKER) 67.4 % (test code = 1455) [id number] 05:45:00 Test Item Value Reference Range Interpretation Comments PHOSPHORUS (BEAKER) (test code = 3.1 mg/dL 2.3-4.7 604) [id number] 05:45:00 Test Item Value Reference Range Interpretation Comments MAGNESIUM (BEAKER) (test code = 1.7 mg/dL 1.6-2.6 627) BASIC METABOLIC [id number] 05:45:00 Test Item Value Reference Range Interpretation Comments SODIUM (BEAKER) 136 meq/L 136-145 (test code = 381) POTASSIUM (BEAKER) 3.8 meq/L 3.5-5.1 (test code = 379) CHLORIDE (BEAKER) 105 meq/L 98-107 (test code = 382) CO2 (BEAKER) (test 18 meq/L 22-29 L code = 355) BLOOD UREA NITROGEN 33 mg/dL 7-21 H (BEAKER) (test code = 354) CREATININE (BEAKER) 1.49 mg/dL 0.57-1.25 H (test code = 358) GLUCOSE RANDOM 179 mg/dL 70-105 H (BEAKER) (test code = 652) CALCIUM (BEAKER) 8.0 mg/dL 8.4-10.2 L (test code = 697) EGFR (BEAKER) (test 45 mL/min/1.73 ESTIMA MADISON GFR IS code = 1092) sq m NOT ACCURATE CREATININE CLEARANCE IN PREDICTING GLOMERULAR FILTRATION RATE . ESTIMATED GFR I S NOT APPLICABLE FOR DIALYSIS PATIEN TS. Specimen slightly ictericCBC W/PLT COUNT & AUTO [id number] 05:37:00 Test Item Value Reference Range Interpretation Comments WHITE BLOOD CELL COUNT (BEAKER) 10.2 K/ L 3.5-10.5 (test code = 775) RED BLOOD CELL COUNT (BEAKER) 3.02 M/ L 4.63-6.08 L (test code = 761) HEMOGLOBIN (BEAKER) (test code = 8.7 GM/DL 13.7-17.5 L 410) HEMATOCRIT (BEAKER) (test code = 27.3 % 40.1-51.0 L 411) MEAN CORPUSCULAR VOLUME (BEAKER) 90.4 fL 79.0-92.2 (test code = 753) MEAN CORPUSCULAR HEMOGLOBIN 28.8 pg 25.7-32.2 (BEAKER) (test code = 751) MEAN CORPUSCULAR HEMOGLOBIN CONC 31.9 GM/DL 32.3-36.5 L (BEAKER) (test code = 752) RED CELL DISTRIBUTION WIDTH 15.3 % 11.6-14.4 H (BEAKER) (test code = 412) PLATELET COUNT (BEAKER) (test 128 K/CU MM 150-450 L code = 756) MEAN PLATELET VOLUME (BEAKER) 10.8 fL 9.4-12.4 (test code = 754) NUCLEATED RED BLOOD CELLS 0 /100 WBC 0-0 (BEAKER) (test code = 413) NEUTROPHILS RELATIVE PERCENT 75 % (BEAKER) (test code = 429) LYMPHOCYTES RELATIVE PERCENT 8 % (BEAKER) (test code = 430) MONOCYTES RELATIVE PERCENT 14 % (BEAKER) (test code = 431) EOSINOPHILS RELATIVE PERCENT 2 % (BEAKER) (test code = 432) BASOPHILS RELATIVE PERCENT 0 % (BEAKER) (test code = 437) NEUTROPHILS ABSOLUTE COUNT 7.65 K/ L 1.78-5.38 H (BEAKER) (test code = 670) LYMPHOCYTES ABSOLUTE COUNT 0.83 K/ L 1.32-3.57 L (BEAKER) (test code = 414) MONOCYTES ABSOLUTE COUNT (BEAKER) 1.44 K/ L 0.30-0.82 H (test code = 415) EOSINOPHILS ABSOLUTE COUNT 0.18 K/ L 0.04-0.54 (BEAKER) (test code = 416) BASOPHILS ABSOLUTE COUNT (BEAKER) 0.04 K/ L 0.01-0.08 (test code = 417) IMMATURE GRANULOCYTES-RELATIVE 1 % 0-1 PERCENT (BEAKER) (test code = 2801) BLOOD GAS, [id number] 23:24:00 Test Item Value Reference Range Interpretation Comments PH ARTERIAL (BEAKER) (test code = 7.42 7.35-7.45 383) PCO2 ARTERIAL (BEAKER) (test code 35 mmHg 35-45 = 384) PO2 ARTERIAL (BEAKER) (test code 153 mmHg 80-90 H = 385) O2 SATURATION ARTERIAL (BEAKER) 99.0 % 96.0-97.0 H (test code = 386) HCO3 ARTERIAL (BEAKER) (test code 22 mmol/L 21-29 = 388) BASE EXCESS ARTERIAL (BEAKER) -1.8 mmol/L -2.0-3.0 (test code = 387) PATIENT TEMPERATURE (BEAKER) 36.7 C (test code = 1818) FIO2 (BEAKER) (test code = 1819) 70.0 % POCT-GLUCOSE [id number] 22:06:00 Test Item Value Reference Range Interpretation Comments POC-GLUCOSE METER 136 mg/dL 70-[address] [facility] 67[address] (BEAKER) (test code = [place] 1538) [address] RAD, CHEST, 1 VIEW, NON [id number] 19:27:00Reason for exam:- >intubationShould this be performed at the bedside?->YesFINAL REPORT Chest one view AP 09/11/2017 7:26 PM CLINICAL INDICATION: intubation COMPARISON: 09/11/2017 at 0406 IMPRESSION: Support hardware is in satisfactory radiographic position. Cardiomediastinal contours are stable. There is central pulmonary vasculature congestion without remarkable peripheral edema. Hazy bibasilar opacities suggesting combination of pleural fluid and atel ectasis. Pneumonia should be excluded clinically. Signed: Giles Adams Verified Date/Time: 09/11/2017 19:27:17 Reading Location: [facility] Radiology Reading Room BLOOD GAS, [id number] 18:28:00 Test Item Value Reference Range Interpretation Comments PH ARTERIAL (BEAKER) (test code = 7.39 7.35-7.45 383) PCO2 ARTERIAL (BEAKER) (test code 34 mmHg 35-45 L = 384) PO2 ARTERIAL (BEAKER) (test code 199 mmHg 80-90 H = 385) O2 SATURATION ARTERIAL (BEAKER) 99.4 % 96.0-97.0 H (test code = 386) HCO3 ARTERIAL (BEAKER) (test code 20 mmol/L 21-29 L = 388) BASE EXCESS ARTERIAL (BEAKER) -4.7 mmol/L -2.0-3.0 L (test code = 387) PATIENT TEMPERATURE (BEAKER) 36.9 C (test code = 1818) FIO2 (BEAKER) (test code = 1819) 50.0 % POCT-GLUCOSE [id number] 18:06:00 Test Item Value Reference Range Interpretation Comments POC-GLUCOSE METER 111 mg/dL 70-[address] [facility] 6720 (BEAKER) (test code = [place] 1538) [id number] 17:51:00 Test Item Value Reference Range Interpretation Comments POTASSIUM (BEAKER) (test code = 3.9 meq/L 3.5-5.1 379) [id number] 17:51:00 Test Item Value Reference Range Interpretation Comments MAGNESIUM (BEAKER) (test code = 1.6 mg/dL 1.6-2.6 627) HEMOGLOBIN AND [id number] 17:43:00 Test Item Value Reference Range Interpretation Comments HEMOGLOBIN (BEAKER) (test code = 9.1 GM/DL 13.7-17.5 L 410) HEMATOCRIT (BEAKER) (test code = 27.7 % 40.1-51.0 L 411) BLOOD GAS, [id number] 17:30:00 Test Item Value Reference Range Interpretation Comments PH ARTERIAL (BEAKER) (test code = 7.44 7.35-7.45 383) PCO2 ARTERIAL (BEAKER) (test code 34 mmHg 35-45 L = 384) PO2 ARTERIAL (BEAKER) (test code 159 mmHg 80-90 H = 385) O2 SATURATION ARTERIAL (BEAKER) 99.1 % 96.0-97.0 H (test code = 386) HCO3 ARTERIAL (BEAKER) (test code 23 mmol/L 21-29 = 388) BASE EXCESS ARTERIAL (BEAKER) -1.3 mmol/L -2.0-3.0 (test code = 387) PATIENT TEMPERATURE ([facility]) 36.9 C (test code = 1818) FIO2 (BEAKER) (test code = 1819) 50.0 % POCT-GLUCOSE [id number] 17:10:00 Test Item Value Reference Range Interpretation Comments POC-GLUCOSE METER 110 mg/dL 70-110 TESTED AT [place] [address] ([facility]) (test code = [facility] 1538) [id number] HEMOGLOBIN AND [id number] 13:11:00 Test Item Value Reference Range Interpretation Comments HEMOGLOBIN (BEAKER) (test code = 9.1 GM/DL 13.7-17.5 L 410) HEMATOCRIT ([facility]) (test code = 27.7 % 40.1-51.0 L 411) POCT-GLUCOSE [id number] 08:07:00 Test Item Value Reference Range Interpretation Comments POC-GLUCOSE METER 129 mg/dL 70-110 H TESTED AT [place] [address] ([facility]) (test code = [facility] 1538) [id number] CALCIUM, [id number] 07:22:00 Test Item Value Reference Range Interpretation Comments CALCIUM IONIZED ([facility]) (test 1.13 mmol/L 1.12-1.27 code = 698) PH, BLOOD ([facility]) (test code = 7.41 1810) RAD, CHEST, 1 VIEW, NON [id number] 07:05:00while patient is intubated or has chest tubes.Reason for exam:->cabgShould this be performed at the bedside?->YesFINAL REPORT Chest, one view. HISTORY: Postoperative COMPARISON: 09/10/2017 IMPRESSION: Interval extubation and removal of nasogastric tube. Remaining supporting lines and tubes unchanged in position. No identifiable pneumothorax. Unchanged enlargement of the cardiomediastinal si lhouette. Unchanged retrocardiac opacification which could represent combination of atelectasis, consolidation, and/or effusion. Trace right pleural effusion Signed: Danilo Reece Verified Date/Time: 09/11/2017 07:05:01 Reading Location: [facility] Diagnostic Imaging Reading Room - [place] [address] OXYGEN SATURATION, [id number] 05:53:00 Test Item Value Reference Range Interpretation Comments O2 SATURATION (MEASURED) (BEAKER) 68.2 % (test code = 1455) [id number] 05:26:00 Test Item Value Reference Range Interpretation Comments PHOSPHORUS (BEAKER) (test code = 3.4 mg/dL 2.3-4.7 604) [id number] 05:26:00 Test Item Value Reference Range Interpretation Comments MAGNESIUM (BEAKER) (test code = 2.0 mg/dL 1.6-2.6 627) BASIC METABOLIC [id number] 05:26:00 Test Item Value Reference Range Interpretation Comments SODIUM (BEAKER) 139 meq/L 136-145 (test code = 381) POTASSIUM (BEAKER) 4.0 meq/L 3.5-5.1 (test code = 379) CHLORIDE (BEAKER) 108 meq/L 98-107 H (test code = 382) CO2 (BEAKER) (test 23 meq/L 22-29 code = 355) BLOOD UREA NITROGEN 31 mg/dL 7-21 H (BEAKER) (test code = 354) CREATININE (BEAKER) 1.37 mg/dL 0.57-1.25 H (test code = 358) GLUCOSE RANDOM 53 mg/dL 70-105 L (BEAKER) (test code = 652) CALCIUM (BEAKER) 8.3 mg/dL 8.4-10.2 L (test code = 697) EGFR (BEAKER) (test 49 mL/min/1.73 ESTIMA MADISON GFR IS code = 1092) sq m NOT ACCURATE CREATININE CLEARANCE IN PREDICTING GLOMERULAR FILTRATION RATE . ESTIMATED GFR I S NOT APPLICABLE FOR DIALYSIS PATIEN TS. PROTHROMBIN [id number] 05:20:00 Test Item Value Reference Range Interpretation Comments PROTIME (BEAKER) (test code = 19.0 seconds 11.7-14.7 H 759) INR (BEAKER) (test code = 370) 1.6 <=5.9 RECOMMENDED COUMADIN/WARFARIN INR THERAPY RANGESSTANDARD DOSE: 2.0 - 3.0 Includes: PROPHYLAXIS forvenous thrombosis, systemic embolization; TREATMENT for venous thrombosis and/or pulmonary embolus.HIGH RISK: Target INR is 2.5-3.5 for patients with mechanical heart valves.CBC W/PLT COUNT & AUTO DIFFERENTIAL 2017-09-11 05:04:00 Test Item Value Reference Range Interpretation Comments WHITE BLOOD CELL COUNT (BEAKER) 7.2 K/ L 3.5-10.5 (test code = 775) RED BLOOD CELL COUNT (BEAKER) 2.58 M/ L 4.63-6.08 L (test code = 761) HEMOGLOBIN (BEAKER) (test code = 7.4 GM/DL 13.7-17.5 L 410) HEMATOCRIT (BEAKER) (test code = 23.3 % 40.1-51.0 L 411) MEAN CORPUSCULAR VOLUME (BEAKER) 90.3 fL 79.0-92.2 (test code = 753) MEAN CORPUSCULAR HEMOGLOBIN 28.7 pg 25.7-32.2 (BEAKER) (test code = 751) MEAN CORPUSCULAR HEMOGLOBIN CONC 31.8 GM/DL 32.3-36.5 L (BEAKER) (test code = 752) RED CELL DISTRIBUTION WIDTH 15.3 % 11.6-14.4 H (BEAKER) (test code = 412) PLATELET COUNT (BEAKER) (test 108 K/CU MM 150-450 L code = 756) MEAN PLATELET VOLUME (BEAKER) 10.7 fL 9.4-12.4 (test code = 754) NUCLEATED RED BLOOD CELLS 0 /100 WBC 0-0 (BEAKER) (test code = 413) NEUTROPHILS RELATIVE PERCENT 73 % (BEAKER) (test code = 429) LYMPHOCYTES RELATIVE PERCENT 13 % (BEAKER) (test code = 430) MONOCYTES RELATIVE PERCENT 12 % (BEAKER) (test code = 431) EOSINOPHILS RELATIVE PERCENT 2 % (BEAKER) (test code = 432) BASOPHILS RELATIVE PERCENT 0 % (BEAKER) (test code = 437) NEUTROPHILS ABSOLUTE COUNT 5.28 K/ L 1.78-5.38 (BEAKER) (test code = 670) LYMPHOCYTES ABSOLUTE COUNT 0.91 K/ L 1.32-3.57 L (BEAKER) (test code = 414) MONOCYTES ABSOLUTE COUNT (BEAKER) 0.84 K/ L 0.30-0.82 H (test code = 415) EOSINOPHILS ABSOLUTE COUNT 0.16 K/ L 0.04-0.54 (BEAKER) (test code = 416) BASOPHILS ABSOLUTE COUNT (BEAKER) 0.03 K/ L 0.01-0.08 (test code = 417) IMMATURE GRANULOCYTES-RELATIVE 0 % 0-1 PERCENT (BEAKER) (test code = 2801) CBC W/PLT COUNT & AUTO [id number] 14:58:00 Test Item Value Reference Range Interpretation Comments WHITE BLOOD CELL COUNT (BEAKER) 8.7 K/ L 3.5-10.5 (test code = 775) RED BLOOD CELL COUNT (BEAKER) 2.84 M/ L 4.63-6.08 L (test code = 761) HEMOGLOBIN (BEAKER) (test code = 8.3 GM/DL 13.7-17.5 L 410) HEMATOCRIT (BEAKER) (test code = 25.4 % 40.1-51.0 L 411) MEAN CORPUSCULAR VOLUME (BEAKER) 89.4 fL 79.0-92.2 (test code = 753) MEAN CORPUSCULAR HEMOGLOBIN 29.2 pg 25.7-32.2 (BEAKER) (test code = 751) MEAN CORPUSCULAR HEMOGLOBIN CONC 32.7 GM/DL 32.3-36.5 (BEAKER) (test code = 752) RED CELL DISTRIBUTION WIDTH 15.2 % 11.6-14.4 H (BEAKER) (test code = 412) PLATELET COUNT (BEAKER) (test 123 K/CU MM 150-450 L code = 756) MEAN PLATELET VOLUME (BEAKER) 10.6 fL 9.4-12.4 (test code = 754) NUCLEATED RED BLOOD CELLS 1 /100 WBC 0-0 H (BEAKER) (test code = 413) NEUTROPHILS RELATIVE PERCENT 74 % (BEAKER) (test code = 429) LYMPHOCYTES RELATIVE PERCENT 12 % (BEAKER) (test code = 430) MONOCYTES RELATIVE PERCENT 12 % (BEAKER) (test code = 431) EOSINOPHILS RELATIVE PERCENT 0 % (BEAKER) (test code = 432) BASOPHILS RELATIVE PERCENT 0 % (BEAKER) (test code = 437) NEUTROPHILS ABSOLUTE COUNT 6.49 K/ L 1.78-5.38 H (BEAKER) (test code = 670) LYMPHOCYTES ABSOLUTE COUNT 1.07 K/ L 1.32-3.57 L (BEAKER) (test code = 414) MONOCYTES ABSOLUTE COUNT (BEAKER) 1.08 K/ L 0.30-0.82 H (test code = 415) EOSINOPHILS ABSOLUTE COUNT 0.03 K/ L 0.04-0.54 L (BEAKER) (test code = 416) BASOPHILS ABSOLUTE COUNT (BEAKER) 0.03 K/ L 0.01-0.08 (test code = 417) IMMATURE GRANULOCYTES-RELATIVE 1 % 0-1 PERCENT (BEAKER) (test code = 2801) CBC W/PLT COUNT & AUTO [id number] 13:12:00 Test Item Value Reference Range Interpretation Comments WHITE BLOOD CELL COUNT (BEAKER) 7.9 K/ L 3.5-10.5 (test code = 775) RED BLOOD CELL COUNT (BEAKER) 2.74 M/ L 4.63-6.08 L (test code = 761) HEMOGLOBIN (BEAKER) (test code = 8.1 GM/DL 13.7-17.5 L 410) HEMATOCRIT (BEAKER) (test code = 24.5 % 40.1-51.0 L 411) MEAN CORPUSCULAR VOLUME (BEAKER) 89.4 fL 79.0-92.2 (test code = 753) MEAN CORPUSCULAR HEMOGLOBIN 29.6 pg 25.7-32.2 (BEAKER) (test code = 751) MEAN CORPUSCULAR HEMOGLOBIN CONC 33.1 GM/DL 32.3-36.5 (BEAKER) (test code = 752) RED CELL DISTRIBUTION WIDTH 15.3 % 11.6-14.4 H (BEAKER) (test code = 412) PLATELET COUNT (BEAKER) (test 114 K/CU MM 150-450 L code = 756) MEAN PLATELET VOLUME (BEAKER) 10.7 fL 9.4-12.4 (test code = 754) NUCLEATED RED BLOOD CELLS 1 /100 WBC 0-0 H (BEAKER) (test code = 413) NEUTROPHILS RELATIVE PERCENT 74 % (BEAKER) (test code = 429) LYMPHOCYTES RELATIVE PERCENT 13 % (BEAKER) (test code = 430) MONOCYTES RELATIVE PERCENT 12 % (BEAKER) (test code = 431) EOSINOPHILS RELATIVE PERCENT 1 % (BEAKER) (test code = 432) BASOPHILS RELATIVE PERCENT 0 % (BEAKER) (test code = 437) NEUTROPHILS ABSOLUTE COUNT 5.84 K/ L 1.78-5.38 H (BEAKER) (test code = 670) LYMPHOCYTES ABSOLUTE COUNT 1.04 K/ L 1.32-3.57 L (BEAKER) (test code = 414) MONOCYTES ABSOLUTE COUNT (BEAKER) 0.92 K/ L 0.30-0.82 H (test code = 415) EOSINOPHILS ABSOLUTE COUNT 0.07 K/ L 0.04-0.54 (BEAKER) (test code = 416) BASOPHILS ABSOLUTE COUNT (BEAKER) 0.03 K/ L 0.01-0.08 (test code = 417) IMMATURE GRANULOCYTES-RELATIVE 1 % 0-1 PERCENT (BEAKER) (test code = 2801) BLOOD GAS, [id number] 12:40:00 Test Item Value Reference Range Interpretation Comments PH ARTERIAL (BEAKER) (test code = 7.45 7.35-7.45 383) PCO2 ARTERIAL (BEAKER) (test code 35 mmHg 35-45 = 384) PO2 ARTERIAL (BEAKER) (test code 115 mmHg 80-90 H = 385) O2 SATURATION ARTERIAL (BEAKER) 98.5 % 96.0-97.0 H (test code = 386) HCO3 ARTERIAL (BEAKER) (test code 24 mmol/L 21-29 = 388) BASE EXCESS ARTERIAL (BEAKER) -0.1 mmol/L -2.0-3.0 (test code = 387) PATIENT TEMPERATURE (BEAKER) 36.6 C (test code = 1818) FIO2 (BEAKER) (test code = 1819) 32.0 % BLOOD GAS, [id number] 07:45:00 Test Item Value Reference Range Interpretation Comments PH ARTERIAL (BEAKER) (test code = 7.41 7.35-7.45 383) PCO2 ARTERIAL (BEAKER) (test code 36 mmHg 35-45 = 384) PO2 ARTERIAL (BEAKER) (test code 122 mmHg 80-90 H = 385) O2 SATURATION ARTERIAL (BEAKER) 98.5 % 96.0-97.0 H (test code = 386) HCO3 ARTERIAL (BEAKER) (test code 22 mmol/L 21-29 = 388) BASE EXCESS ARTERIAL (BEAKER) -2.1 mmol/L -2.0-3.0 L (test code = 387) PATIENT TEMPERATURE (BEAKER) 36.5 C (test code = 1818) FIO2 (BEAKER) (test code = 1819) 40.0 % POCT-GLUCOSE [id number] 07:21:00 Test Item Value Reference Range Interpretation Comments POC-GLUCOSE METER 108 mg/dL 70-[address] [facility] 6720 (BEAKER) (test code = [place] 1538) [id number] RAD, CHEST, 1 VIEW, NON [id number] 04:59:00while patient is intubated or has chest tubes.Reason for exam:->cabgShould this be performed at the bedside?->YesFINAL REPORT CLINICAL INDICATION: Postop Comparison: 09/09/2017 The cardiomediastinal contours are stable. Central pulmonary vascular congestion and bilateral parenchymal and pleural opacities are unchanged. There is no pneumothorax. Support lines are stable. Signed: Chris Velazco MDReport Verified Date/Time: 09/10/2017 04:59:34 Reading Location: [address] Reading Room [id number] 04:56:00 Test Item Value Reference Range Interpretation Comments PHOSPHORUS (BEAKER) (test code = 4.5 mg/dL 2.3-4.7 604) [id number] 04:56:00 Test Item Value Reference Range Interpretation Comments MAGNESIUM (BEAKER) (test code = 2.1 mg/dL 1.6-2.6 627) BASIC METABOLIC [id number] 04:56:00 Test Item Value Reference Range Interpretation Comments SODIUM (BEAKER) 137 meq/L 136-145 (test code = 381) POTASSIUM (BEAKER) 4.6 meq/L 3.5-5.1 (test code = 379) CHLORIDE (BEAKER) 106 meq/L 98-107 (test code = 382) CO2 (BEAKER) (test 21 meq/L 22-29 L code = 355) BLOOD UREA NITROGEN 34 mg/dL 7-21 H (BEAKER) (test code = 354) CREATININE (BEAKER) 1.68 mg/dL 0.57-1.25 H (test code = 358) GLUCOSE RANDOM 109 mg/dL 70-105 H (BEAKER) (test code = 652) CALCIUM (BEAKER) 8.4 mg/dL 8.4-10.2 (test code = 697) EGFR (BEAKER) (test 39 mL/min/1.73 ESTIMA MADISON GFR IS code = 1092) sq m NOT ACCURATE CREATININE CLEARANCE IN PREDICTING GLOMERULAR FILTRATION RATE . ESTIMATED GFR I S NOT APPLICABLE FOR DIALYSIS PATIEN TS. Specimen slightly ictericLACTIC ACID, ARTERIAL, WHOLE [id number] 04:40:00 Test Item Value Reference Range Interpretation Comments LACTATE BLOOD ARTERIAL (2) 1.0 mmol/L 0.5-2.2 (BEAKER) (test code = 2874) Effective 10/04/2015: Units/Reference Range ChangeNew: 0.5-2.2 mmol/L Previous: 5-20 mg/dLSpecimen slightly ictericOXYGEN SATURATION, [id number] 04:35:00 Test Item Value Reference Range Interpretation Comments O2 SATURATION (MEASURED) (BEAKER) 67.2 % (test code = 1455) BLOOD GAS, [id number] 04:29:00 Test Item Value Reference Range Interpretation Comments PH ARTERIAL (BEAKER) (test code = 7.42 7.35-7.45 383) PCO2 ARTERIAL (BEAKER) (test code 36 mmHg 35-45 = 384) PO2 ARTERIAL (BEAKER) (test code 120 mmHg 80-90 H = 385) O2 SATURATION ARTERIAL (BEAKER) 98.4 % 96.0-97.0 H (test code = 386) HCO3 ARTERIAL (BEAKER) (test code 23 mmol/L 21-29 = 388) BASE EXCESS ARTERIAL (BEAKER) -1.3 mmol/L -2.0-3.0 (test code = 387) PATIENT TEMPERATURE (BEAKER) 37.4 C (test code = 1818) FIO2 (BEAKER) (test code = 1819) 40.0 % CALCIUM, [id number] 04:29:00 Test Item Value Reference Range Interpretation Comments CALCIUM IONIZED (BEAKER) (test 1.06 mmol/L 1.12-1.27 L code = 698) PH, BLOOD (BEAKER) (test code = 7.42 1810) CT, BRAIN, WITHOUT [id number] 01:35:00FINAL REPORT CT, BRAIN, WITHOUT CONTRAST INDICATION: Confusion/delirium, altered LOC, unexplained TECHNIQUE: Noncontrast axial imaging was obtained [...] and brainstem: Commensurate volume loss.Ventricles: Normal volume.Extra-axial spaces: Unremarkable. Calvarium and skull base: Intact.Paranasal sinuses and mastoid air cells: Visible chambers are clear.Orbital contents: Included portions unremarkable. Additional findings: None. IMPRESSION: Chronic involutional changes without acute intracranial abnormality. Ifthere is persistent clinical concern for intracranial pathology, MR examination is recommended for further characterization. Signed: JR Underwood Robert MDReport Verified Date/Time: 09/10/2017 01:35:00 Reading Location: [address] Body Reading Room POCT-GLUCOSE [id number] 00:38:00 Test Item Value Reference Range Interpretation Comments POC-GLUCOSE METER 110 mg/dL 70-110 TESTED AT [address]) (test code = [facility] 1538) [id number] POCT-GLUCOSE [id number] 00:38:00 Test Item Value Reference Range Interpretation Comments POC-GLUCOSE METER 117 mg/dL 70-110 H TESTED AT [address]) (test code = [facility] 1538) [id number] POCT-GLUCOSE [id number] 00:38:00 Test Item Value Reference Range Interpretation Comments POC-GLUCOSE METER 94 mg/dL 70-110 TESTED AT [place] [address] ([facility]) (test code = [facility] [address] 1538) RAD, CHEST, 1 VIEW, NON [id number] 21:17:00Reason for exam:->s/p ACBFINAL REPORT CLINICAL INDICATION: Postop Comparison: Same date at 1322 hoursThe cardiomediastinal contours are stable. Central pulmonary vascular prominence and bilateral parenchymal and pleural opacities are unchanged. There is no pneumothorax. Decreasing subcutaneous emphysema overlies the left chest wall. Support lines are stable. Signed: Chris Velazco MDReport Verified Date/Time: 09/09/2017 21:17:09 Reading Location: [address] Reading Room CALCIUM, [id number] 19:51:00 Test Item Value Reference Range Interpretation Comments CALCIUM IONIZED (BEAKER) (test 1.09 mmol/L 1.12-1.27 L code = 698) PH, BLOOD (BEAKER) (test code = 7.37 1810) [id number] 19:50:00 Test Item Value Reference Range Interpretation Comments HEMOGLOBIN (BEAKER) (test code = 9.0 GM/DL 13.7-17.5 L 410) For hypotensionHEMOGLOBIN AND [id number] 19:50:00 Test Item Value Reference Range Interpretation Comments HEMOGLOBIN (BEAKER) (test code = 9.0 GM/DL 13.7-17.5 L 410) HEMATOCRIT (BEAKER) (test code = 27.2 % 40.1-51.0 L 411) For hypotensionBLOOD GAS, [id number] 17:33:00 Test Item Value Reference Range Interpretation Comments PH ARTERIAL (BEAKER) (test code = 7.40 7.35-7.45 383) PCO2 ARTERIAL (BEAKER) (test code 36 mmHg 35-45 = 384) PO2 ARTERIAL (BEAKER) (test code 166 mmHg 80-90 H = 385) O2 SATURATION ARTERIAL (BEAKER) 99.1 % 96.0-97.0 H (test code = 386) HCO3 ARTERIAL (BEAKER) (test code 22 mmol/L 21-29 = 388) BASE EXCESS ARTERIAL (BEAKER) -2.9 mmol/L -2.0-3.0 L (test code = 387) PATIENT TEMPERATURE (BEAKER) 36.4 C (test code = 1818) FIO2 (BEAKER) (test code = 1819) 40.0 % THROMBOELASTOGRAPH (TEG)2017-09-09 14:58:00 Test Item Value Reference Range Interpretation Comments TEG ACTIVATED CLOTTING TIME 3.7 minutes 4.0-7.0 L (BEAKER) (test code = 1407) TEG FIBRINOGEN ACTIVITY (BEAKER) 69.9 degrees 61.0-73.0 (test code = 1408) TEG PLT. AGGREGATION (BEAKER) 58.5 MM 55.0-65.0 (test code = 1409) TEG FIBRINOLYSIS (BEAKER) (test 0.0 % 0.0-5.0 code = 1410) TGH ACTIVATED CLOTTING TIME 3.8 minutes 4.0-7.0 L (BEAKER) (test code = 1411) TGH FIBRINOGEN ACTIVITY (BEAKER) 70.4 degrees 61.0-73.0 (test code = 1412) TGH PLT. AGGREGATION (BEAKER) 57.5 MM 55.0-65.0 (test code = 1413) TGH FIBRINOLYSIS (BEAKER) (test 0.0 % 0.0-5.0 code = 1414) RAD, CHEST, 1 VIEW, NON [id number] 14:12:00Reason for exam:->cabgShould this be performed at [...] MDReport Verified Date/Time: 09/09/2017 14:12:51 Reading Location: [facility] 18 02:12 [id number] 13:25:00 Test Item Value Reference Range Interpretation Comments PHOSPHORUS (BEAKER) (test code = 4.8 mg/dL 2.3-4.7 H 604) [id number] 13:25:00 Test Item Value Reference Range Interpretation Comments MAGNESIUM (BEAKER) (test code = 2.8 mg/dL 1.6-2.6 H 627) BASIC METABOLIC [id number] 13:25:00 Test Item Value Reference Range Interpretation Comments SODIUM (BEAKER) 134 meq/L 136-145 L (test code = 381) POTASSIUM (BEAKER) 4.5 meq/L 3.5-5.1 (test code = 379) CHLORIDE (BEAKER) 102 meq/L 98-107 (test code = 382) CO2 (BEAKER) (test 21 meq/L 22-29 L code = 355) BLOOD UREA NITROGEN 39 mg/dL 7-21 H (BEAKER) (test code = 354) CREATININE (BEAKER) 1.69 mg/dL 0.57-1.25 H (test code = 358) GLUCOSE RANDOM 117 mg/dL 70-105 H (BEAKER) (test code = 652) CALCIUM (BEAKER) 9.6 mg/dL 8.4-10.2 (test code = 697) EGFR (BEAKER) (test 39 mL/min/1.73 ESTIMA MADISON GFR IS code = 1092) sq m NOT ACCURATE CREATININE CLEARANCE IN PREDICTING GLOMERULAR FILTRATION RATE . ESTIMATED GFR I S NOT APPLICABLE FOR DIALYSIS PATIEN TS. Specimen slightly ictericLACTIC ACID, ARTERIAL, WHOLE [id number] 13:24:00 Test Item Value Reference Range Interpretation Comments LACTATE BLOOD 1.8 mmol/L 0.5-2.2 Specimen sligh tly ARTERIAL (2) (BEAKER) hemoly zed (test code = 2874) Effective 10/04/2015: Units/Reference Range ChangeNew: 0.5-2.2 mmol/L Previous: 5-20 mg/dLFor occult hypoperfusionPROTHROMBIN [id number] 13:18:00 Test Item Value Reference Range Interpretation Comments PROTIME (BEAKER) (test code = 20.8 seconds 11.7-14.7 H 759) INR (BEAKER) (test code = 370) 1.8 <=5.9 RECOMMENDED COUMADIN/WARFARIN INR THERAPY RANGESSTANDARD DOSE: 2.0 - 3.0 Includes: PROPHYLAXIS forvenous thrombosis, systemic embolization; TREATMENT for venous thrombosis and/or pulmonary embolus.HIGH RISK: Target INR is 2.5-3.5 for patients with mechanical heart valves.[id number] 13:18:00 Test Item Value Reference Range Interpretation Comments FIBRINOGEN LEVEL (BEAKER) (test 256 mg/dl 225-434 code = 658) [id number] 13:18:00 Test Item Value Reference Range Interpretation Comments PARTIAL THROMBOPLASTIN TIME 34.3 seconds 22.5-36.0 (BEAKER) (test code = 760) CBC W/PLT COUNT & AUTO [id number] 13:12:00 Test Item Value Reference Range Interpretation Comments WHITE BLOOD CELL COUNT (BEAKER) 16.5 K/ L 3.5-10.5 H (test code = 775) RED BLOOD CELL COUNT (BEAKER) 3.41 M/ L 4.63-6.08 L (test code = 761) HEMOGLOBIN (BEAKER) (test code = 10.1 GM/DL 13.7-17.5 L 410) HEMATOCRIT (BEAKER) (test code = 30.7 % 40.1-51.0 L 411) MEAN CORPUSCULAR VOLUME (BEAKER) 90.0 fL 79.0-92.2 (test code = 753) MEAN CORPUSCULAR HEMOGLOBIN 29.6 pg 25.7-32.2 (BEAKER) (test code = 751) MEAN CORPUSCULAR HEMOGLOBIN CONC 32.9 GM/DL 32.3-36.5 (BEAKER) (test code = 752) RED CELL DISTRIBUTION WIDTH 14.6 % 11.6-14.4 H (BEAKER) (test code = 412) PLATELET COUNT (BEAKER) (test 151 K/CU MM 150-450 code = 756) MEAN PLATELET VOLUME (BEAKER) 10.6 fL 9.4-12.4 (test code = 754) NUCLEATED RED BLOOD CELLS 0 /100 WBC 0-0 (BEAKER) (test code = 413) NEUTROPHILS RELATIVE PERCENT 79 % (BEAKER) (test code = 429) LYMPHOCYTES RELATIVE PERCENT 10 % (BEAKER) (test code = 430) MONOCYTES RELATIVE PERCENT 7 % (BEAKER) (test code = 431) EOSINOPHILS RELATIVE PERCENT 3 % (BEAKER) (test code = 432) BASOPHILS RELATIVE PERCENT 0 % (BEAKER) (test code = 437) NEUTROPHILS ABSOLUTE COUNT 12.94 K/ L 1.78-5.38 H (BEAKER) (test code = 670) LYMPHOCYTES ABSOLUTE COUNT 1.71 K/ L 1.32-3.57 (BEAKER) (test code = 414) MONOCYTES ABSOLUTE COUNT (BEAKER) 1.13 K/ L 0.30-0.82 H (test code = 415) EOSINOPHILS ABSOLUTE COUNT 0.53 K/ L 0.04-0.54 (BEAKER) (test code = 416) BASOPHILS ABSOLUTE COUNT (BEAKER) 0.05 K/ L 0.01-0.08 (test code = 417) IMMATURE GRANULOCYTES-RELATIVE 1 % 0-1 PERCENT (BEAKER) (test code = 2801) BLOOD GAS, [id number] 13:08:00 Test Item Value Reference Range Interpretation Comments PH ARTERIAL (BEAKER) (test code = 7.37 7.35-7.45 383) PCO2 ARTERIAL (BEAKER) (test code 38 mmHg 35-45 = 384) PO2 ARTERIAL (BEAKER) (test code 174 mmHg 80-90 H = 385) O2 SATURATION ARTERIAL (BEAKER) 99.2 % 96.0-97.0 H (test code = 386) HCO3 ARTERIAL (BEAKER) (test code 21 mmol/L 21-29 = 388) BASE EXCESS ARTERIAL (BEAKER) -3.9 mmol/L -2.0-3.0 L (test code = 387) PATIENT TEMPERATURE (BEAKER) 36.4 C (test code = 1818) FIO2 (BEAKER) (test code = 1819) 80.0 % SODIUM NA-STAT [id number] 13:08:00 Test Item Value Reference Range Interpretation Comments SODIUM (BEAKER) (test code = 381) 129 meq/L 135-148 L GLUCOSE-STAT [id number] 13:08:00 Test Item Value Reference Range Interpretation Comments GLUCOSE RANDOM (BEAKER) (test code 113 mg/dL 70-110 H = 652) HGB/HCT (H&H) - STAT [id number] 13:08:00 Test Item Value Reference Range Interpretation Comments HEMOGLOBIN (BEAKER) (test code = 10.9 g/dL 13.0-16.8 L 410) HEMATOCRIT (BEAKER) (test code = 32.0 % 40.0-50.0 L 411) PLATELET [id number] 13:06:00 Test Item Value Reference Range Interpretation Comments PLATELET COUNT (BEAKER) (test 151 K/CU MM 150-450 code = 756) OXYGEN SATURATION, [id number] 13:06:00 Test Item Value Reference Range Interpretation Comments O2 SATURATION (MEASURED) (BEAKER) 74.0 % (test code = 1455) For occult hypoperfusionPOTASSIUM-STAT [id number] 13:06:00 Test Item Value Reference Range Interpretation Comments POTASSIUM (BEAKER) (test code = 4.3 meq/L 3.6-5.5 379) CALCIUM, [id number] 13:05:00 Test Item Value Reference Range Interpretation Comments CALCIUM IONIZED (BEAKER) (test 1.20 mmol/L 1.12-1.27 code = 698) PH, BLOOD (BEAKER) (test code = 7.36 1810) THROMBOELASTOGRAPH (TEG)2017-09-09 12:12:00 Test Item Value Reference Range Interpretation Comments TEG ACTIVATED CLOTTING TIME 4.5 minutes 4.0-7.0 (BEAKER) (test code = 1407) TEG FIBRINOGEN ACTIVITY (BEAKER) 74.8 degrees 61.0-73.0 H (test code = 1408) TEG PLT. AGGREGATION (BEAKER) 69.5 MM 55.0-65.0 H (test code = 1409) TGH ACTIVATED CLOTTING TIME 4.8 minutes 4.0-7.0 (BEAKER) (test code = 1411) TGH FIBRINOGEN ACTIVITY (BEAKER) 71.4 degrees 61.0-73.0 (test code = 1412) TGH PLT. AGGREGATION (BEAKER) 66.8 MM 55.0-65.0 H (test code = 1413) [id number] 11:54:00 Test Item Value Reference Range Interpretation Comments ACTIVATED CLOTTING TIME 109 sec TEST ED AT [place] [address] ([facility]) (test code = [place] [address]) [id number] 11:54:00 Test Item Value Reference Range Interpretation Comments ACTIVATED CLOTTING TIME 510 sec TEST ED AT [place] [address] ([facility]) (test code = [place] [address]) [id number] 11:54:00 Test Item Value Reference Range Interpretation Comments ACTIVATED CLOTTING TIME 483 sec TEST ED AT [facility] 6720 (BEAKER) (test code = JAC Danielle [place] [address]) [id number] 11:54:00 Test Item Value Reference Range Interpretation Comments ACTIVATED CLOTTING TIME 450 [address] [facility] 6720 (BEAKER) (test code = JAC Danielle [facility] 441) [id number] PROTHROMBIN [id number] 11:41:00 Test Item Value Reference Range Interpretation Comments PROTIME (BEAKER) (test code = 23.4 seconds 11.7-14.7 H 759) INR (BEAKER) (test code = 370) 2.1 <=5.9 RECOMMENDED COUMADIN/WARFARIN INR THERAPY RANGESSTANDARD DOSE: 2.0 - 3.0 Includes: PROPHYLAXIS forvenous thrombosis, systemic embolization; TREATMENT for venous thrombosis and/or pulmonary embolus.HIGH RISK: Target INR is 2.5-3.5 for patients with mechanical heart valves.[id number] 11:41:00 Test Item Value Reference Range Interpretation Comments FIBRINOGEN LEVEL (BEAKER) (test 231 mg/dl 225-434 code = 658) [id number] 11:41:00 Test Item Value Reference Range Interpretation Comments PARTIAL THROMBOPLASTIN TIME 35.0 seconds 22.5-36.0 (BEAKER) (test code = 760) PLATELET [id number] 11:26:00 Test Item Value Reference Range Interpretation Comments PLATELET COUNT (BEAKER) (test 134 K/CU MM 150-450 L code = 756) BLOOD GAS, [id number] 11:16:00 Test Item Value Reference Range Interpretation Comments PH ARTERIAL (BEAKER) (test code = 7.45 7.35-7.45 383) PCO2 ARTERIAL (BEAKER) (test code 32 mmHg 35-45 L = 384) PO2 ARTERIAL (BEAKER) (test code 317 mmHg 80-90 H = 385) O2 SATURATION ARTERIAL (BEAKER) 99.8 % 96.0-97.0 H (test code = 386) HCO3 ARTERIAL (BEAKER) (test code 22 mmol/L 21-29 = 388) BASE EXCESS ARTERIAL (BEAKER) -1.8 mmol/L -2.0-3.0 (test code = 387) PATIENT TEMPERATURE (BEAKER) 35.9 C (test code = 1818) FIO2 (BEAKER) (test code = 1819) 100.0 % SODIUM NA-STAT [id number] 11:16:00 Test Item Value Reference Range Interpretation Comments SODIUM (BEAKER) (test code = 381) 129 meq/L 135-148 L HGB/HCT (H&H) - STAT [id number] 11:16:00 Test Item Value Reference Range Interpretation Comments HEMOGLOBIN (BEAKER) (test code = 8.4 g/dL 13.0-16.8 L 410) HEMATOCRIT (BEAKER) (test code = 25.0 % 40.0-50.0 L 411) GLUCOSE-STAT [id number] 11:15:00 Test Item Value Reference Range Interpretation Comments GLUCOSE RANDOM (BEAKER) (test code = 98 mg/dL 70-110 652) POTASSIUM-STAT [id number] 11:15:00 Test Item Value Reference Range Interpretation Comments POTASSIUM (BEAKER) (test code = 4.1 meq/L 3.6-5.5 379) CALCIUM, [id number] 11:15:00 Test Item Value Reference Range Interpretation Comments CALCIUM IONIZED (BEAKER) (test 1.13 mmol/L 1.12-1.27 code = 698) PH, BLOOD (BEAKER) (test code = 7.44 1810) GLUCOSE-STAT [id number] 10:35:00 Test Item Value Reference Range Interpretation Comments GLUCOSE RANDOM (BEAKER) (test code = 81 mg/dL 70-110 652) POTASSIUM-STAT [id number] 10:35:00 Test Item Value Reference Range Interpretation Comments POTASSIUM (BEAKER) (test code = 4.8 meq/L 3.6-5.5 379) BLOOD GAS, [id number] 10:35:00 Test Item Value Reference Range Interpretation Comments PH ARTERIAL (BEAKER) (test code = 7.52 7.35-7.45 H 383) PCO2 ARTERIAL (BEAKER) (test code 27 mmHg 35-45 L = 384) PO2 ARTERIAL (BEAKER) (test code 228 mmHg 80-90 H = 385) O2 SATURATION ARTERIAL (BEAKER) 99.6 % 96.0-97.0 H (test code = 386) HCO3 ARTERIAL (BEAKER) (test code 22 mmol/L 21-29 = 388) BASE EXCESS ARTERIAL (BEAKER) -1.1 mmol/L -2.0-3.0 (test code = 387) PATIENT TEMPERATURE (BEAKER) 35.3 C (test code = 1818) FIO2 (BEAKER) (test code = 1819) 70.0 % SODIUM NA-STAT [id number] 10:35:00 Test Item Value Reference Range Interpretation Comments SODIUM (BEAKER) (test code = 381) 128 meq/L 135-148 L HGB/HCT (H&H) - STAT [id number] 10:35:00 Test Item Value Reference Range Interpretation Comments HEMOGLOBIN (BEAKER) (test code = 8.1 g/dL 13.0-16.8 L 410) HEMATOCRIT (BEAKER) (test code = 24.0 % 40.0-50.0 L 411) SODIUM NA-STAT [id number] 10:08:00 Test Item Value Reference Range Interpretation Comments SODIUM (BEAKER) (test code = 381) 129 meq/L 135-148 L HGB/HCT (H&H) - STAT [id number] 10:08:00 Test Item Value Reference Range Interpretation Comments HEMOGLOBIN (BEAKER) (test code = 8.7 g/dL 13.0-16.8 L 410) HEMATOCRIT (BEAKER) (test code = 26.0 % 40.0-50.0 L 411) GLUCOSE-STAT [id number] 10:07:00 Test Item Value Reference Range Interpretation Comments GLUCOSE RANDOM (BEAKER) (test code = 82 mg/dL 70-110 652) POTASSIUM-STAT [id number] 10:07:00 Test Item Value Reference Range Interpretation Comments POTASSIUM (BEAKER) (test code = 4.4 meq/L 3.6-5.5 379) BLOOD GAS, [id number] 10:07:00 Test Item Value Reference Range Interpretation Comments PH ARTERIAL (BEAKER) (test code = 7.31 7.35-7.45 L 383) PCO2 ARTERIAL (BEAKER) (test code 47 mmHg 35-45 H = 384) PO2 ARTERIAL (BEAKER) (test code 391 mmHg 80-90 H = 385) O2 SATURATION ARTERIAL (BEAKER) 99.8 % 96.0-97.0 H (test code = 386) HCO3 ARTERIAL (BEAKER) (test code 25 mmol/L 21-29 = 388) BASE EXCESS ARTERIAL (BEAKER) -2.8 mmol/L -2.0-3.0 L (test code = 387) PATIENT TEMPERATURE (BEAKER) 30.0 C (test code = 1818) FIO2 (BEAKER) (test code = 1819) 70.0 % SODIUM NA-STAT [id number] 09:26:00 Test Item Value Reference Range Interpretation Comments SODIUM (BEAKER) (test code = 381) 129 meq/L 135-148 L HGB/HCT (H&H) - STAT [id number] 09:26:00 Test Item Value Reference Range Interpretation Comments HEMOGLOBIN (BEAKER) (test code = 10.3 g/dL 13.0-16.8 L 410) HEMATOCRIT (BEAKER) (test code = 30.0 % 40.0-50.0 L 411) CALCIUM, [id number] 09:25:00 Test Item Value Reference Range Interpretation Comments CALCIUM IONIZED (BEAKER) (test 1.06 mmol/L 1.12-1.27 L code = 698) PH, BLOOD (BEAKER) (test code = 7.45 1810) BLOOD GAS, [id number] 09:25:00 Test Item Value Reference Range Interpretation Comments PH ARTERIAL (BEAKER) (test code = 7.46 7.35-7.45 H 383) PCO2 ARTERIAL (BEAKER) (test code 35 mmHg 35-45 = 384) PO2 ARTERIAL (BEAKER) (test code = 348 mmHg 80-90 H 385) O2 SATURATION ARTERIAL (BEAKER) 99.8 % 96.0-97.0 H (test code = 386) HCO3 ARTERIAL (BEAKER) (test code 25 mmol/L 21-29 = 388) BASE EXCESS ARTERIAL (BEAKER) 0.9 mmol/L -2.0-3.0 (test code = 387) PATIENT TEMPERATURE (BEAKER) (test 36.0 C code = 1818) FIO2 (BEAKER) (test code = 1819) 100.0 % GLUCOSE-STAT [id number] 09:11:00 Test Item Value Reference Range Interpretation Comments GLUCOSE RANDOM (BEAKER) (test code 101 mg/dL 70-110 = 652) POTASSIUM-STAT [id number] 09:11:00 Test Item Value Reference Range Interpretation Comments POTASSIUM (BEAKER) (test code = 3.9 meq/L 3.6-5.5 379) POCT-GLUCOSE [id number] 07:11:00 Test Item Value Reference Range Interpretation Comments POC-GLUCOSE METER 93 mg/dL 70-[address] [facility] 6720 (BEAKER) (test code = JAC Danielle [facility] [address]) POCT-GLUCOSE [id number] 05:54:00 Test Item Value Reference Range Interpretation Comments POC-GLUCOSE METER 59 mg/dL 70-[address] [facility] 6720 (BEAKER) (test code = [facility] Shashi [facility] [address]) BASIC METABOLIC [id number] 05:09:00 Test Item Value Reference Range Interpretation Comments SODIUM (BEAKER) 135 meq/L 136-145 L (test code = 381) POTASSIUM (BEAKER) 4.2 meq/L 3.5-5.1 (test code = 379) CHLORIDE (BEAKER) 99 meq/L 98-107 (test code = 382) CO2 (BEAKER) (test 28 meq/L 22-29 code = 355) BLOOD UREA NITROGEN 44 mg/dL 7-21 H (BEAKER) (test code = 354) CREATININE (BEAKER) 2.16 mg/dL 0.57-1.25 H (test code = 358) GLUCOSE RANDOM 56 mg/dL 70-105 L (BEAKER) (test code = 652) CALCIUM (BEAKER) 9.1 mg/dL 8.4-10.2 (test code = 697) EGFR (BEAKER) (test 29 mL/min/1.73 ESTIMA MADISON GFR IS code = 1092) sq m NOT ACCURATE CREATININE CLEARANCE IN PREDICTING GLOMERULAR FILTRATION RATE . ESTIMATED GFR I S NOT APPLICABLE FOR DIALYSIS PATIEN TS. [id number] 04:56:00 Test Item Value Reference Range Interpretation Comments PARTIAL THROMBOPLASTIN TIME 35.6 seconds 22.5-36.0 (BEAKER) (test code = 760) PROTHROMBIN [id number] 04:55:00 Test Item Value Reference Range Interpretation Comments PROTIME (BEAKER) (test code = 17.8 seconds 11.7-14.7 H 759) INR (BEAKER) (test code = 370) 1.5 <=5.9 RECOMMENDED COUMADIN/WARFARIN INR THERAPY RANGESSTANDARD DOSE: 2.0 - 3.0 Includes: PROPHYLAXIS forvenous thrombosis, systemic embolization; TREATMENT for venous thrombosis and/or pulmonary embolus.HIGH RISK: Target INR is 2.5-3.5 for patients with mechanical heart valves.POCT-GLUCOSE [id number] 21:20:00 Test Item Value Reference Range Interpretation Comments POC-GLUCOSE METER 101 mg/dL 70-110 TESTED AT [place] [address] ([facility]) (test code = JAC Danielle [facility] 1538) [id number] POCT-GLUCOSE [id number] 16:36:00 Test Item Value Reference Range Interpretation Comments POC-GLUCOSE METER 112 mg/dL 70-110 H TESTED AT [place] [address] ([facility]) (test code = [facility] 1538) [address] B-TYPE NATRIURETIC FACTOR (BNP)2017-09-08 14:47:00 Test Item Value Reference Range Interpretation Comments B-TYPE NATRIURETIC PEPTIDE 1769 pg/mL 0-100 H ([facility]) (test code = 700) With next blood drawPOCT-GLUCOSE [id number] 11:43:00 Test Item Value Reference Range Interpretation Comments POC-GLUCOSE METER 167 mg/dL 70-110 H TESTED AT [place] [address] ([facility]) (test code = [facility] Shashi [facility] 1538) [address] POCT-GLUCOSE [id number] 07:16:00 Test Item Value Reference Range Interpretation Comments POC-GLUCOSE METER 86 mg/dL 70-110 TESTED AT [place] [address] ([facility]) (test code = [facility] Shashi [facility] [address]) BASIC METABOLIC [id number] 05:34:00 Test Item Value Reference Range Interpretation Comments SODIUM (BEAKER) 133 meq/L 136-145 L (test code = 381) POTASSIUM (BEAKER) 4.5 meq/L 3.5-5.1 (test code = 379) CHLORIDE (BEAKER) 99 meq/L 98-107 (test code = 382) CO2 (BEAKER) (test 24 meq/L 22-29 code = 355) BLOOD UREA NITROGEN 46 mg/dL 7-21 H (BEAKER) (test code = 354) CREATININE (BEAKER) 2.19 mg/dL 0.57-1.25 H (test code = 358) GLUCOSE RANDOM 105 mg/dL 70-105 (BEAKER) (test code = 652) CALCIUM (BEAKER) 9.4 mg/dL 8.4-10.2 (test code = 697) EGFR (BEAKER) (test 29 mL/min/1.73 ESTIMA MADISON GFR IS code = 1092) sq m NOT ACCURATE CREATININE CLEARANCE IN PREDICTING GLOMERULAR FILTRATION RATE . ESTIMATED GFR I S NOT APPLICABLE FOR DIALYSIS PATIEN TS. [id number] 04:38:00 Test Item Value Reference Range Interpretation Comments PARTIAL THROMBOPLASTIN TIME 31.5 seconds 22.5-36.0 (BEAKER) (test code = 760) PROTHROMBIN [id number] 04:37:00 Test Item Value Reference Range Interpretation Comments PROTIME (BEAKER) (test code = 18.2 seconds 11.7-14.7 H 759) INR (BEAKER) (test code = 370) 1.5 <=5.9 RECOMMENDED COUMADIN/WARFARIN INR THERAPY RANGESSTANDARD DOSE: 2.0 - 3.0 Includes: PROPHYLAXIS forvenous thrombosis, systemic embolization; TREATMENT for venous thrombosis and/or pulmonary embolus.HIGH RISK: Target INR is 2.5-3.5 for patients with mechanical heart valves.BASIC METABOLIC [id number] 23:53:00 Test Item Value Reference Range Interpretation Comments SODIUM (BEAKER) 129 meq/L 136-145 L (test code = 381) POTASSIUM (BEAKER) 5.1 meq/L 3.5-5.1 Specimen slightly (test code = 379) hemolyzed CHLORIDE (BEAKER) 99 meq/L 98-107 (test code = 382) CO2 (BEAKER) (test 19 meq/L 22-29 L code = 355) BLOOD UREA NITROGEN 45 mg/dL 7-21 H (BEAKER) (test code = 354) CREATININE (BEAKER) 2.26 mg/dL 0.57-1.25 H Specimen slightly (test code = 358) hemolyzed GLUCOSE RANDOM 198 mg/dL 70-105 H (BEAKER) (test code = 652) CALCIUM (BEAKER) 9.1 mg/dL 8.4-10.2 (test code = 697) EGFR (BEAKER) (test 28 mL/min/1.73 ESTIMA MADISON GFR IS code = 1092) sq m NOT ACCURATE CREATININE CLEARANCE IN PREDICTING GLOMERULAR FILTRATION RATE . ESTIMATED GFR I S NOT APPLICABLE FOR DIALYSIS PATIEN TS. [id number] 23:48:00 Test Item Value Reference Range Interpretation Comments PHOSPHORUS (BEAKER) 4.3 mg/dL 2.3-4.7 Specimen slightly (test code = 604) hemolyzed [id number] 23:42:00 Test Item Value Reference Range Interpretation Comments MAGNESIUM (BEAKER) (test code = 2.0 mg/dL 1.6-2.6 627) [id number] 23:37:00 Test Item Value Reference Range Interpretation Comments PARTIAL THROMBOPLASTIN TIME 32.3 seconds 22.5-36.0 (BEAKER) (test code = 760) PROTHROMBIN [id number] 23:36:00 Test Item Value Reference Range Interpretation Comments PROTIME (BEAKER) (test code = 18.6 seconds 11.7-14.7 H 759) INR (BEAKER) (test code = 370) 1.6 <=5.9 RECOMMENDED COUMADIN/WARFARIN INR THERAPY RANGESSTANDARD DOSE: 2.0 - 3.0 Includes: PROPHYLAXIS forvenous thrombosis, systemic embolization; TREATMENT for venous thrombosis and/or pulmonary embolus.HIGH RISK: Target INR is 2.5-3.5 for patients with mechanical heart valves.CBC W/PLT COUNT & AUTO DIFFERENTIAL 2017-09-07 23:29:00 Test Item Value Reference Range Interpretation Comments WHITE BLOOD CELL COUNT (BEAKER) 9.6 K/ L 3.5-10.5 (test code = 775) RED BLOOD CELL COUNT (BEAKER) 3.43 M/ L 4.63-6.08 L (test code = 761) HEMOGLOBIN (BEAKER) (test code = 10.0 GM/DL 13.7-17.5 L 410) HEMATOCRIT (BEAKER) (test code = 31.5 % 40.1-51.0 L 411) MEAN CORPUSCULAR VOLUME (BEAKER) 91.8 fL 79.0-92.2 (test code = 753) MEAN CORPUSCULAR HEMOGLOBIN 29.2 pg 25.7-32.2 (BEAKER) (test code = 751) MEAN CORPUSCULAR HEMOGLOBIN CONC 31.7 GM/DL 32.3-36.5 L (BEAKER) (test code = 752) RED CELL DISTRIBUTION WIDTH 14.5 % 11.6-14.4 H (BEAKER) (test code = 412) PLATELET COUNT (BEAKER) (test 176 K/CU MM 150-450 code = 756) MEAN PLATELET VOLUME (BEAKER) 11.1 fL 9.4-12.4 (test code = 754) NUCLEATED RED BLOOD CELLS 0 /100 WBC 0-0 (BEAKER) (test code = 413) NEUTROPHILS RELATIVE PERCENT 79 % (BEAKER) (test code = 429) LYMPHOCYTES RELATIVE PERCENT 10 % (BEAKER) (test code = 430) MONOCYTES RELATIVE PERCENT 10 % (BEAKER) (test code = 431) EOSINOPHILS RELATIVE PERCENT 0 % (BEAKER) (test code = 432) BASOPHILS RELATIVE PERCENT 0 % (BEAKER) (test code = 437) NEUTROPHILS ABSOLUTE COUNT 7.56 K/ L 1.78-5.38 H (BEAKER) (test code = 670) LYMPHOCYTES ABSOLUTE COUNT 1.00 K/ L 1.32-3.57 L (BEAKER) (test code = 414) MONOCYTES ABSOLUTE COUNT (BEAKER) 0.95 K/ L 0.30-0.82 H (test code = 415) EOSINOPHILS ABSOLUTE COUNT 0.03 K/ L 0.04-0.54 L (BEAKER) (test code = 416) BASOPHILS ABSOLUTE COUNT (BEAKER) 0.02 K/ L 0.01-0.08 (test code = 417) IMMATURE GRANULOCYTES-RELATIVE 1 % 0-1 PERCENT (BEAKER) (test code = 2801) POCT-GLUCOSE [id number] 23:25:00 Test Item Value Reference Range Interpretation Comments POC-GLUCOSE METER 212 mg/dL 70-[address] [facility] 6720 (BEAKER) (test code = [place] 1538) [address] RAD, CHEST, 2 [id number] 22:44:00Reason for exam:->preopFINAL REPORT INDICATION: preop COMPARISON: [...] failure. Signed: JR Underwood Robert MDReport Verified Date/Time: 09/07/2017 22:44:39 Reading Location: [facility] B1 C013Y CT Body Reading Room GLOBIN [id number] 14:19:00 Test Item Value Reference Range Interpretation Comments HEMOGLOBIN A1C (BEAKER) (test code = 8.4 % 4.3-6.1 H 368) RAD, CHEST, 2 [id number] 11:22:00Reason for Exam:->Pre-OpFINAL REPORT Chest two views Discussion: There is interstitial congestion with patchy basilar opacities right greater than left and suspected small effusions. Heart size upper limits of normal. No pneumothorax. Findings suggest CHF. Signed: Susannah Pope Verified Date/Time: 09/04/2017 11:22:30 Reading Location: [facility] Reading Room
[2021-07-18] MEDS ORDERED: NA CHLORIDE 0.9% 500 ML ONE (21:35)
--- NOTE | 2021-07-18 22:00 | RAD REPORT ---
EXAM DESCRIPTION: RAD - Chest Single View - 07/18/2021 9:38 pm CLINICAL HISTORY: COUGH COMPARISON: Chest Pa And Lat (2 Views) dated 07/20/2019; Chest Pa And Lat (2 Views) dated 11/20/2018; Chest Single View dated 09/07/2017 FINDINGS: Lines: Pacemaker/ICD. Sternotomy. Lungs: Increased prominence of the pulmonary interstitium. Pleural: Small effusions difficult to exclude. Cardiac: Cardiomegaly appear Bones: No acute fractures. Other: IMPRESSION: Increased vascular engorgement likely representing edema.
[2021-07-18 22:22] LABS: Urine Blood Trace-intact (Negative); Urine Glucose Negative (Negative); Urine Protein 1+ (Negative)
[2021-07-18 22:26] LABS: Absolute Lymphocytes (CBC) 0.9 K/uL (0.7-4.9); Hematocrit 30.8 % (39.6-49.0); Lymphocytes % 8.7 % (15.3-44.8); MPV 8.9 fL (7.6-11.3); RBC Red Blood Cell Count 3.74 M/uL (4.33-5.43)
[2021-07-18 22:27] LABS: Protime INR 1.86
[2021-07-18] MEDS ORDERED: FUROSEMIDE 40 MG/4 ML VIAL ONE (22:32)
[2021-07-18 22:39] LABS: Albumin 2.8 g/dL (3.4-5.0); Bilirubin Direct 0.3 mg/dL (0-0.2); Bilirubin Total 0.9 mg/dL (0.2-1.0); Magnesium 2.1 mg/dL (1.8-2.4); Potassium 4.5 mmol/L (3.5-5.1); Protein, Total 7.4 g/dL (6.4-8.2)
[2021-07-18 22:41] LABS: Troponin High Sensitivity 73.9 pg/mL (<58.9)
--- NOTE | 2021-07-18 22:59 | ER ---
Nurse's Notes [facility] Name: Sebastián Naylor Age: 89 yrs Sex: Male : 1930 Arrival Date: 07/18/2021 Time: 19:29 Bed 18 Private MD: Diagnosis: Anemia, unspecified;Unspecified kidney failure-renal insufficency;Systolic (congestive) heart failure;Type 1 diabetes mellitus with hyperglycemia;Dyspnea, unspecified Presentation: 07/18 19:37 Chief complaint: EMS states: "He is coming from home. His daughter in law gave him tw5 trazadone and tramadol at 12. They state that he has been just really lethargic all day. He has been alert and oriented x4. He is just a little sleepy. They just wanted him checked out to be safe than sorry. He does have a pace maker as well.". Coronavirus screen: Vaccine status: Patient reports being unvaccinated. [place]. Ebola Screen: Patient negative for fever greater than or equal to 101.5 degrees Fahrenheit, and additional compatible Ebola Virus Disease symptoms Patient denies exposure to infectious person. Patient denies travel to an Ebola-affected area in the 21 days before illness onset. Initial Sepsis Screen:. Risk Assessment: Do you want to hurt yourself or someone else? Patient reports no desire to harm self or others. Onset of symptoms was July 18, 2021 at 12:00. 19:37 Method Of Arrival: EMS: [facility] tw5 19:37 Acuity: PRATIBHA 3 tw5 19:51 Initial Sepsis Screen: Does the patient meet any 2 criteria? No. Patient's initial tw5 sepsis screen is negative. Does the patient have a suspected source of infection? No. Patient's initial sepsis screen is negative. Triage Assessment: 19:39 General: Appears in no apparent distress. Behavior is calm, cooperative, drowsy. tw5 General: Reports "No" Patient states that he is tired. Pain: Denies pain. Historical: - Allergies: 19:39 seasonal allergies; tw5 - Home Meds: 19:39 trazodone 100 mg Oral tab 1 tab once daily [Active]; Xarelto 15 mg oral tab 1 tab once tw5 daily [Active]; furosemide 40 mg Oral tab 1 tab once daily [Active]; atorvastatin 20 mg oral tab 1 tab once daily [Active]; magnesium oxide 400 mg magnesium Oral cap [Active]; famotidine 40 mg Oral tab 1 tab once daily [Active]; metoprolol succinate 25 mg oral CSpX 1 cap once daily [Active]; tramadol 50 mg Oral tab 1 tab 12 hours [Active]; - PMHx: 19:39 Diabetes - IDDM; tw5 - PSHx: 19:39 pacemaker; open heart; tw5 - Immunization history:: Flu vaccine is up to date. - Social history:: Smoking status: Patient denies any tobacco usage or history of. - Family history:: not pertinent. Screenin:45 Abuse screen: Denies threats or abuse. Denies injuries from another. Nutritional tw5 screening: No deficits noted. Fall Risk No fall in past 12 months (0 pts). Secondary diagnosis (15 points) Ambulatory Aid- Crutches/Cane/Walker (15 pts). Gait- Weak (10 pts.). 07/19 00:43 Tuberculosis screening: No symptoms or risk factors identified. ll3 Assessment: 07/18 21:10 General: Appears uncomfortable, Behavior is calm, cooperative, drowsy. Pain: Denies ll3 pain. Neuro: Level of Consciousness is awake, alert, obeys commands, Oriented to person, place, time, situation, Reports Increased drowsiness . Cardiovascular: Patient's skin is warm and dry. Rhythm is Respiratory: Respiratory effort is even, unlabored, Respiratory pattern is regular, symmetrical, Onset: The symptoms/episode began/occurred States he feels SOB ever since having stents placed , Parent/caregiver reports the patient having shortness of breath. GI: Abdomen is round non-distended. Derm: Skin is pink, warm \\T\\ dry. 22:41 Reassessment: Lab called with a troponin level of 73.9, ERP notified. ll3 07/19 00:42 Reassessment: Patient and/or family updated on plan of care and expected duration. Pain ll3 level reassessed. Patient is alert, oriented x 3, equal unlabored respirations, skin warm/dry/pink. 01:42 Reassessment: Patient and/or family updated on plan of care and expected duration. Pain ll3 level reassessed. Patient is alert, oriented x 3, equal unlabored respirations, skin warm/dry/pink. 03:02 Reassessment: Patient and/or family updated on plan of care and expected duration. Pain ll3 level reassessed. Patient is alert, oriented x 3, equal unlabored respirations, skin warm/dry/pink. Vital Signs: 07/18 19:39 Weight 76.2 kg; Height 5 ft. 5 in. (165.10 cm); tw5 19:51 BP 144 / 91; Pulse 72; Resp 18; Temp 98.3; Pulse Ox 100% on R/A; tw5 21:40 BP 115 / 64; Pulse 71; Resp 16; Pulse Ox 99% on R/A; ll3 22:30 BP 107 / 62; Pulse 69; Resp 17; Pulse Ox 98% on R/A; ll3 07/19 00:42 BP 110 / 58; Pulse 87; Resp 16; Pulse Ox 98% ; ll3 01:48 BP 94 / 56; Pulse 67; Resp 15; Pulse Ox 98% on R/A; ll3 01:48 BP 108 / 42; Pulse 67; Resp 12; Pulse Ox 99% on 2 lpm NC; ll3 03:02 BP 94 / 61; Pulse 66; Resp 15; Pulse Ox 99% on 2 lpm NC; ll3 07/18 19:39 Body Mass Index 27.96 (76.20 kg, 165.10 cm) tw5 ED Course: 07/18 19:29 Patient arrived in ED. kc5 19:39 Triage completed. tw5 19:39 Arm band placed on right wrist. tw5 21:08 Eric Finley MD is Attending Physician. [facility] 21:38 XRAY Chest (1 view) In Process Unspecified. EDMS 22:43 Initial lab(s) drawn, by ED staff, sent to lab. Urine collected: clean catch specimen, ll3 olga lidia colored, EKG done, by ED staff, reviewed by Eric Filney MD. Inserted saline lock: 22 gauge in right antecubital area, using aseptic technique. Blood collected. 22:46 Patient has correct armband on for positive identification. Bed in low position. Call ll3 light in reach. Side rails up X 1. Adult w/ patient. monitoring engineer on. Pulse ox on. NIBP on. Door closed. Noise minimized. Warm blanket given. 22:56 Bernard London is Hospitalizing Provider. dl 22:59 Bunny Calzada MD is Hospitalizing Provider. dl 23:14 [place] MD is Hospitalizing Provider. dl 23:30 CT Head Brain wo Cont In Process Unspecified. [facility] 07/19 01:42 Sylvia Muniz RN is Primary Nurse. ll3 07:22 Primary Nurse role handed off by Sylvia Muniz RN eo2 07:22 Karina Samaniego RN is Primary Nurse. eo2 15:23 No provider procedures requiring assistance completed. Patient admitted, IV remains in eo2 place. Administered Medications: 07/18 22:24 CANCELLED (Duplicate Order): NS 0.9% 500 ml IV at bolus once dl 22:40 Drug: Lasix (furosemide) 40 mg Route: IVP; Site: right antecubital; ll3 07/19 00:42 Follow up: Response: No adverse reaction ll3 02:15 Drug: NS 0.9% 250 ml Route: IV; Rate: bolus; Site: right antecubital; ll3 03:01 Follow up: Response: No adverse reaction; IV Status: Completed infusion; IV Intake: ll3 500ml 03:00 Drug: NS 0.9% 1000 ml Route: IV; Rate: 75 ml/hr; Site: right antecubital; ll3 06:55 Drug: Pepcid (famotidine) 20 mg Route: IVP; Site: right antecubital; ll3 Intake: 03:01 IV: 500ml; Total: 500ml. ll3 Outcome: 07/18 22:58 Decision to Hospitalize by Provider. [facility] 07/19 15:23 Admitted to Med/surg eo2 Admitted to Med/surg accompanied by tech, via wheelchair, room 206, Report called to Benjie LAINEZ Condition: stable Instructed on the need for admit. 15:25 Patient left the ED. eo2 Signatures: Dispatcher [employer] EDOR Eric Finley MD MD cha Wood, Tiffany tw5 Sylvia Muniz RN RN ll3 Nalia Best kc5 Karina Samaniego RN RN eo2 Corrections: (The following items were deleted from the chart) 01:43 00:42 Reassessment: Patient is alert, oriented x 3, equal unlabored respirations, skin ll3 warm/dry/pink. Patient is alert/active/playful, equal unlabored respirations, skin warm/dry/pink. ll3
--- NOTE | 2021-07-18 22:59 | EDPHYS ---
Physician Documentation [facility] Name: Sebastián Naylor Age: 89 yrs Sex: Male : 1930 Arrival Date: 07/18/2021 Time: 19:29 Bed 18 Private MD: ED Physician Eric Filney HPI: 07/18 21:38 This 89 yrs old Male presents to ER via EMS with complaints of General dl Weakness. 21:38 weak all day took a trazadone x 2 and a tramadol earlier. Onset: The symptoms/episode dl began/occurred just prior to arrival. Severity of symptoms: At their worst the symptoms were mild in the emergency department the symptoms are unchanged. Historical: - Allergies: 19:39 seasonal allergies; tw5 - Home Meds: 19:39 trazodone 100 mg Oral tab 1 tab once daily [Active]; Xarelto 15 mg oral tab 1 tab once tw5 daily [Active]; furosemide 40 mg Oral tab 1 tab once daily [Active]; atorvastatin 20 mg oral tab 1 tab once daily [Active]; magnesium oxide 400 mg magnesium Oral cap [Active]; famotidine 40 mg Oral tab 1 tab once daily [Active]; metoprolol succinate 25 mg oral CSpX 1 cap once daily [Active]; tramadol 50 mg Oral tab 1 tab 12 hours [Active]; - PMHx: 19:39 Diabetes - IDDM; tw5 - PSHx: 19:39 pacemaker; open heart; tw5 - Immunization history:: Flu vaccine is up to date. - Social history:: Smoking status: Patient denies any tobacco usage or history of. - Family history:: not pertinent. ROS: 21:38 Constitutional: Negative for fever, chills, and weight loss, Eyes: Negative for injury, dl pain, redness, and discharge, ENT: Negative for injury, pain, and discharge, Neck: Negative for injury, pain, and swelling, Cardiovascular: Negative for chest pain, palpitations, and edema, Respiratory: Negative for shortness of breath, cough, wheezing, and pleuritic chest pain, Abdomen/GI: Negative for abdominal pain, nausea, vomiting, diarrhea, and constipation, Back: Negative for injury and pain, : Negative for injury, bleeding, discharge, and swelling, MS/Extremity: Negative for injury and deformity, Skin: Negative for injury, rash, and discoloration, Psych: Negative for depression, anxiety, suicide ideation, homicidal ideation, and hallucinations, Allergy/Immunology: Negative for hives, rash, and allergies, Endocrine: Negative for neck swelling, polydipsia, polyuria, polyphagia, and marked weight changes, Hematologic/Lymphatic: Negative for swollen nodes, abnormal bleeding, and unusual bruising. 21:38 Neuro: Positive for weakness. Exam: 21:38 Constitutional: This is a well developed, well nourished patient who is awake, alert, dl and in no acute distress. Head/Face: Normocephalic, atraumatic. Eyes: Pupils equal round and reactive to light, extra-ocular motions intact. Lids and lashes normal. Conjunctiva and sclera are non-icteric and not injected. Cornea within normal limits. Periorbital areas with no swelling, redness, or edema. ENT: Nares patent. No nasal discharge, no septal abnormalities noted. Tympanic membranes are normal and external auditory canals are clear. Oropharynx with no redness, swelling, or masses, exudates, or evidence of obstruction, uvula midline. Mucous membranes moist. Neck: Trachea midline, no thyromegaly or masses palpated, and no cervical lymphadenopathy. Supple, full range of motion without nuchal rigidity, or vertebral point tenderness. No Meningismus. Chest/axilla: Normal chest wall appearance and motion. Nontender with no deformity. No lesions are appreciated. Cardiovascular: Regular rate and rhythm with a normal S1 and S2. No gallops, murmurs, or rubs. Normal PMI, no JVD. No pulse deficits. Respiratory: Lungs have equal breath sounds bilaterally, clear to auscultation and percussion. No rales, rhonchi or wheezes noted. No increased work of breathing, no retractions or nasal flaring. Abdomen/GI: Soft, non-tender, with normal bowel sounds. No distension or tympany. No guarding or rebound. No evidence of tenderness throughout. Back: No spinal tenderness. No costovertebral tenderness. Full range of motion. Male : Normal genitalia with no discharge or lesions. Skin: Warm, dry with normal turgor. Normal color with no rashes, no lesions, and no evidence of cellulitis. MS/ Extremity: Pulses equal, no cyanosis. Neurovascular intact. Full, normal range of motion. Neuro: Awake and alert, GCS 15, oriented to person, place, time, and situation. Cranial nerves II-XII grossly intact. Motor strength 5/5 in all extremities. Sensory grossly intact. Cerebellar exam normal. Normal gait. Psych: Awake, alert, with orientation to person, place and time. Behavior, mood, and affect are within normal limits. 23:01 ECG was reviewed by the Attending Physician. [facility] Vital Signs: 19:39 Weight 76.2 kg; Height 5 ft. 5 in. (165.10 cm); tw5 19:51 BP 144 / 91; Pulse 72; Resp 18; Temp 98.3; Pulse Ox 100% on R/A; tw5 21:40 BP 115 / 64; Pulse 71; Resp 16; Pulse Ox 99% on R/A; ll3 22:30 BP 107 / 62; Pulse 69; Resp 17; Pulse Ox 98% on R/A; ll3 07/19 00:42 BP 110 / 58; Pulse 87; Resp 16; Pulse Ox 98% ; ll3 01:48 BP 94 / 56; Pulse 67; Resp 15; Pulse Ox 98% on R/A; ll3 01:48 BP 108 / 42; Pulse 67; Resp 12; Pulse Ox 99% on 2 lpm NC; ll3 03:02 BP 94 / 61; Pulse 66; Resp 15; Pulse Ox 99% on 2 lpm NC; ll3 07/18 19:39 Body Mass Index 27.96 (76.20 kg, 165.10 cm) tw5 MDM: 07/18 21:08 Patient medically screened. [facility] 21:40 Data reviewed: vital signs, nurses notes, lab test result(s), EKG, radiologic studies, [facility] plain films. Data interpreted: bingo worker: rate is 72 beats/min, rhythm is regular, Pulse oximetry: on room air is 100 %. Test interpretation: by ED physician or midlevel provider: ECG, plain radiologic studies. Counseling: I had a detailed discussion with the patient and/or guardian regarding: the historical points, exam findings, and any diagnostic results supporting the discharge/admit diagnosis, lab results, radiology results. 07/18 21:11 Order name: Basic Metabolic Panel [facility] 07/18 21:11 Order name: CBC with Diff [facility] 07/18 21:11 Order name: LFT's [facility] 07/18 21:11 Order name: Magnesium; Complete Time: 22:44 [facility] 07/18 21:11 Order name: NT PRO-BNP; Complete Time: 22:44 [facility] 07/18 21:11 Order name: PT-INR; Complete Time: 22:44 [facility] 07/18 21:11 Order name: Troponin HS; Complete Time: 22:44 [facility] 07/18 21:12 Order name: Basic Metabolic Panel; Complete Time: 22:43 [facility] 07/18 21:12 Order name: CBC with Automated Diff; Complete Time: 22:44 [facility] 07/18 21:12 Order name: Liver (Hepatic) Function; Complete Time: 22:44 [facility] 07/18 22:22 Order name: Urine Dipstick-Ancillary; Complete Time: 22:23 [facility] 07/18 23:01 Order name: SARS-COV-2 RT PCR (Document "Date of Onset" if Symptomatic); Complete Time: [facility] 01:59 07/19 03:58 Order name: CBC with Automated Diff; Complete Time: 06:46 [facility] 07/19 04:26 Order name: Basic Metabolic Panel; Complete Time: 06:46 [facility] 07/18 21:11 Order name: XRAY Chest (1 view); Complete Time: 22:23 [facility] 07/18 21:11 Order name: EKG; Complete Time: 21:12 [facility] 07/18 21:11 Order name: Cardiac monitoring; Complete Time: 22:43 [facility] 07/18 21:42 Order name: CT Head Brain wo Cont [facility] 07/18 23:21 Order name: CONS Physician Consult [facility] 07/19 04:26 Order name: NT PRO-BNP; Complete Time: 06:46 [facility] 07/19 06:47 Order name: Echo w/ Doppler [facility] 07/19 07:33 Order name: RAD [facility] 07/19 08:43 Order name: Glucose, Ancillary Testing [facility] 07/19 09:05 Order name: Glucose, Ancillary Testing [facility] 07/19 12:41 Order name: Glucose, Ancillary Testing [facility] 07/18 21:11 Order name: EKG - Nurse/Tech; Complete Time: 22:43 [facility] 07/18 21:11 Order name: IV Saline Lock; Complete Time: 22:43 [facility] 07/18 21:11 Order name: Labs collected and sent; Complete Time: 22:43 [facility] 07/18 21:11 Order name: O2 Per Protocol; Complete Time: 22:42 dl 07/18 21:11 Order name: O2 Sat Monitoring; Complete Time: 22:42 dl 07/18 21:11 Order name: Urine Dipstick-Ancillary (obtain specimen); Complete Time: 22:26 dl EC:01 Rate is 74 beats/min. Rhythm is regular. QRS Minter is Normal. IN interval is normal. QRS dl interval is normal. QT interval is normal. No Q waves. T waves are Normal. No ST changes noted. Clinical impression: No evidence of ischemia. Interpreted by me. Reviewed by me. Administered Medications: 22:24 CANCELLED (Duplicate Order): NS 0.9% 500 ml IV at bolus once dl 22:40 Drug: Lasix (furosemide) 40 mg Route: IVP; Site: right antecubital; ll3 07/19 00:42 Follow up: Response: No adverse reaction ll3 02:15 Drug: NS 0.9% 250 ml Route: IV; Rate: bolus; Site: right antecubital; ll3 03:01 Follow up: Response: No adverse reaction; IV Status: Completed infusion; IV Intake: ll3 500ml 03:00 Drug: NS 0.9% 1000 ml Route: IV; Rate: 75 ml/hr; Site: right antecubital; ll3 06:55 Drug: Pepcid (famotidine) 20 mg Route: IVP; Site: right antecubital; ll3 Disposition Summary: 07/18/21 22:58 Hospitalization Ordered Hospitalization Status: Observation dl Condition: Stable dl Problem: new dl Symptoms: have improved dl Bed/Room Type: Standard dl Provider: [place](07/18/21 23:14) dl Location: Telemetry/MedSurg (Inpatient)(07/19/21 14:45) Room Assignment: [facility] [place](07/19/21 14:45) Diagnosis - Anemia, unspecified dl - Unspecified kidney failure - renal insufficency dl - Systolic (congestive) heart failure dl - Type 1 diabetes mellitus with hyperglycemia dl - Dyspnea, unspecified dl Discharge Instructions: - Discharge Summary Sheet dl - Weakness dl - Fatigue ld - Weakness, [id number] dl Forms: - Medication Reconciliation Form dl - SBAR form dl Signatures: Dispatcher [employer] EDEric Tolbert MD MD cha Smirch, Shelby, RN RN ss Carter Deutsch, HEART COORDINATOR-C HEART COORDINATOR-Cla1 Britta Sow RN RN eb1 Izzy Crooks tw5 Sylvia Muniz RN RN ll3 Corrections: (The following items were deleted from the chart) 07/18 22:24 21:11 NS 0.9% 500 ml IV at bolus once ordered. [facility] 22:59 22:58 Bernard London [facility] 23:14 22:59 Bunny Calzada [facility] 07/19 00:30 07/18 22:58 Telemetry/MedSurg (observation) [place] [id number] 07/19 00:30 07/18 22:58 [place] [address] 07/19 14:45 00:30 [facility] ER HOLD eb1 14:45 00:30 ERHOLD- eb1
[2021-07-19] MEDS ORDERED: NA CHLORIDE 0.9% 1,000 ML ONE (02:03)
[2021-07-19] MEDS ORDERED: MORPHINE 4 MG/ML SYR IV PRN (02:11)
[2021-07-19] MEDS ORDERED: IPRATROPIUM BROM 0.5MG/2.5ML NEB PRN (02:11)
[2021-07-19] MEDS ORDERED: ONDANSETRON 4 MG/2 ML VIAL IV PRN (02:11)
[2021-07-19] MEDS ORDERED: ALBUTEROL 2.5 MG/3 ML NEB SOL NEB PRN (02:11)
[2021-07-19] MEDS ORDERED: ACETAMINOPHEN 325 MG TABLET PO PRN (02:11)
[2021-07-19 03:18] VITALS: BMI 27.8
[2021-07-19 03:42] LABS: Hematocrit 27.4 % (39.6-49.0); Lymphocytes % 11.9 % (15.3-44.8); MPV 8.3 fL (7.6-11.3); RBC Red Blood Cell Count 3.35 M/uL (4.33-5.43)
[2021-07-19] MEDS: METOPROLOL XL 50 MG TAB PO SCH (06:00)
[2021-07-19] MEDS ORDERED: FAMOTIDINE 20 MG/2 ML VIAL IV ONE ×2 (06:52→10:43)
--- NOTE | 2021-07-19 07:33 | RAD REPORT ---
EXAM DESCRIPTION: RAD - Chest Single View - 07/19/2021 5:40 am CLINICAL HISTORY: Chest Pain COMPARISON: Chest Single View dated 07/18/2021; Chest Pa And Lat (2 Views) dated 07/20/2019; Chest Pa And Lat (2 Views) dated 11/20/2018; Chest Single View dated 09/07/2017 FINDINGS: Lines: None. Lungs: Prominence of the pulmonary vasculature. Pleural: No significant pleural effusions or pneumothorax. Cardiac: Moderate cardiomegaly. Pacemaker/ ICD. Sternotomy. Bones: No acute fractures. Other: IMPRESSION: Vascular congestion with or without a component of edema is similar to 07/18/2021.
[2021-07-19] MEDS ORDERED: PNEUMOCOCCAL VACCINE 0.5 ML IMVAC ONE (08:00)
[2021-07-19] MEDS ORDERED: FAMOTIDINE 20 MG/2 ML VIAL IV SCH ×2 (09:00)
[2021-07-19] MEDS ORDERED: FUROSEMIDE 40 MG/4 ML VIAL ONE (10:00)
[2021-07-19] MEDS ORDERED: MAGNESIUM OXIDE 400 MG TAB ONE (10:02)
[2021-07-19] MEDS: MAGNESIUM OXIDE 400 MG TAB PO SCH ×2 (10:45→21:41)
[2021-07-19] MEDS: FUROSEMIDE 40 MG/4 ML VIAL IV SCH ×2 (10:52→17:13)
--- NOTE | 2021-07-19 11:25 | RAD REPORT ---
EXAM DESCRIPTION: CT - Head Brain Wo Cont - 07/19/2021 4:43 am CLINICAL HISTORY: 89 years, Male, Dizziness;Declining state COMPARISON: None . FINDINGS: Multiple transaxial tomograms of the brain were obtained from the base of the skull to the vertex without contrast. 2-D multiplanar reformats and the coronal and sagittal plane were performed and reviewed. This exam was performed according to our departmental dose-optimization protocol, which includes auto mated exposure control, adjustment of the mA and/or kV according to patient size and/or use of iterat sandy reconstruction technique. Brain parenchyma demonstrate prominence of the sulci and gyri are corresponding to moderate brain atr ophy. There is minimal periventricular white matter changes of microvascular ischemia. There is no mi dline shift and/or mass effect. There is no evidence for acute intracranial hemorrhage. There are min imal vascular calcifications at the cavernous sinus and posterior circulation. Lateral ventricles a nd cisterns displace normal appearance. No intra or extra axial fluid collections were seen. The ca lvarium is intact with no evidence for fracture. The visualized portions of the paranasal sinuses dem onstrate minimal mucosal thickening and opacification of the ethmoid sinuses. The mastoid air cells a nd and orbits demonstrate to be clear. IMPRESSION: No acute intracranial abnormalities noted. Moderate brain atrophy with minimal periventricular white matter changes of microvascular ischemia. Minimal ethmoid sinus disease. Electronically signed by: Raymond Garcia MD 07/18/2021 11:39 PM BLOCK FEEDER Due to temporary technical issues with the PACS/Fluency reporting system, reports are being signed by the in house radiologists without review as a courtesy to insure prompt reporting. The interpreting radiologist is fully responsible for the content of the report.
[2021-07-19] MEDS ORDERED: MORPHINE 2 MG/ML SYR IV PRN (11:40)
--- NOTE | 2021-07-19 12:56 | P.SSS ---
Patient History Date of Service: 07/19/21 Reason for admission: FATIGUE, SLEEPY History of Present Illness: MR. DELACRUZ HAD HYPOGLYCEMIC EPISODE AND STAYED WEAK SINCE THEN HE IS IN ER NOW. HE HAS NO CHEST PAIN OR DYSPNEA. Allergies seasonal allergies Allergy (Uncoded 12/17/15 15:32) Unknown Home medications list reviewed: Yes Home Medications: Atorvastatin Calcium [Lipitor*] 20 mg PO BEDTIME 07/20/19 Ergocalciferol (Vitamin D2) [Vitamin D2] 1.25 mg PO EVERY 7TH DAY 07/20/19 Famotidine 40 mg PO DAILY 07/20/19 Insulin Glargine,Hum.rec.anlog [Basaglar Kwikpen U-100] 60 units SQ BEDTIME 07/20/19 Magnesium Oxide 400 mg PO BID 07/20/19 Metoprolol Succinate [Toprol Xl*] 25 mg PO DAILY 07/20/19 Trazodone [Desyrel*] 100 mg PO BEDTIME 07/20/19 traMADol HCL [Ultram*] 50 mg PO BIDP PRN 07/20/19 Amlodipine [Norvasc*] 2.5 mg PO DAILY #90 tab 07/23/19 Rivaroxaban [Xarelto*] 15 mg PO DAILY AT SUPPER #30 tablet 07/23/19 Furosemide [Lasix*] 40 mg PO DAILY 07/19/21 Insulin Glargine,Hum.rec.anlog [Basaglar Kwikpen U-100] 60 units SQ DAILY AT SUPPER 07/19/21 - Past Medical/Surgical History Has patient received pneumonia vaccine in the past: No Diabetic: Yes -: DM Type 2 -: Hypertension -: Hyperlipidemia -: Quadruple Bypass -: Pacemaker -: Both eye cataract removal -: Back surgery - Family History Father Notes: - heart attack - Social History Smoking Status: Never smoker Alcohol use: No CD- Drugs: No Caffeine use: Yes Place of Residence: Home Review of Systems 10-point ROS is otherwise unremarkable General: Weakness Physical Examination - Vital Signs Temperature: 97.9 F Blood Pressure: 116/57 Pulse: 63 Respirations: 17 Pulse Ox (%): 100 - Physical Exam General: Alert, Mild distress HEENT: Atraumatic, PERRLA, Mucous membr. moist/pink, EOMI, Sclerae nonicteric Neck: Supple, 2+ carotid pulse no bruit, No LAD, Without JVD or thyroid abnorma lity Respiratory: Clear to auscultation bilaterally, Normal air movement Cardiovascular: Regular rate/rhythm, Normal S1 S2 Gastrointestinal: Normal bowel sounds, No tenderness Musculoskeletal: No tenderness Integumentary: No rashes Neurological: Normal gait, Normal speech, Normal strength at 5/5 x4 extr, Normal tone, Normal affect Lymphatics: No axilla or inguinal lymphadenopathy - Studies Laboratory Data (last 24 hrs) 07/18/21 22:00: PT 21.5 H, INR 1.86 07/18/21 22:00: WBC 10.60, Hgb 10.0 L, Hct 30.8 L, Plt Count 162 07/18/21 22:00: Sodium 137, Potassium 4.5, BUN 22 H, Creatinine 1.46 H, Glucose 88, Magnesium 2.1, Total Bilirubin 0.9, AST 24, ALT 29, Alkaline Phosphatase 110 - Diagnosis (Problem(s)) (1) Hypoglycemia Current Visit: Yes Status: Acute Plan: FAMILY IS VERY CARING AND TAKES CARE OF HIM HE MAY NOT HAVE HAD ENOUGH FOOD AND SO GOT HYPOGLYCEMIC. THEY WILL WATCH BETTER (2) Troponin I above reference range Current Visit: Yes Status: Acute Plan: NO SIGNS OF NE. WILL SEE WHAT DR. FLORES HAS TO SAY. (3) Coronary artery disease due to type 2 diabetes mellitus Current Visit: Yes Status: Chronic Plan: NO SYMPTOMS RELATED TO THIS TODAY OR YESTERDAY. - Disposition Disposition: ROUTINE DISCHARGE
[2021-07-19] MEDS ORDERED: RIVAROXABAN 15 MG TABLET PO SCH (17:00)
--- NOTE | 2021-07-19 21:07 | CON ---
Date of Consultation: 07/19/2021 Reason For Consultation: Borderline elevated troponin. History Of Present Illness: This is an elderly gentleman with history of diabetes, hypertension, cor onary artery disease status post 4-vessel bypass in the past few years, dyslipidemia, pacemaker impla nted, presented because of hypoglycemia episode. Sugars were low. Patient could not move. After zhou gar correction, patient felt a lot better. Denies having any chest pain. No shortness of breath. N o other complaints. Past Medical History: As outlined above in HPI. Medications: Refer reconciliation sheet for detailed list. Allergies: NO KNOWN DRUG ALLERGIES. Family History: No mature coronary artery disease or cancer. Social History: Does not smoke or drink. Does not use any drugs. Review of Systems: All systems reviewed, they were negative except for mentioned in HPI. Physical Examination: Vital Signs: Reviewed. Head and Neck: Pupils are equal, reactive to light. Intact eye movements. No JVD. No cervical lym phadenopathy. Neck supple. Thyroid is not enlarged. Lungs: Clear to auscultation bilaterally. No rhonchi, rales, or crackles. No accessory muscle use. Heart: Regular rate and rhythm. No extra sounds. Abdomen: Soft, nontender. Bowel sounds positive. No organomegaly. No masses or hernia. No rigidi ty or rebound. Extremities: No clubbing, cyanosis. Intact pulses. Skin: No rashes. Neurologic: Alert, awake, and oriented x3. No acute focal deficits appreciated. Investigations: Troponin 73 and creatinine is 1.35. Glucose initially was 59 and now is 123. Assessment And Recommendation: Elevated troponin. There is no chest pain. The patient is known to have history of coronary artery disease. He is totally asymptomatic. This could likely be a demand; repeat another troponin, if there is no significant rise in it, then it will be okay to discharge th e patient and have him follow up with Dr. Pagan as an outpatient for an exercise nuclear stress jyoti t to further evaluate the need for coronary angiogram and this can be done as an outpatient. Thank you for the consult. /SHAHNAZ Voice ID: [id number] Report ID: [id number]
[2021-07-19 22:38] LABS: Urine Appearance CLEAR (Clear); Urine Bilirubin NEGATIVE (Negative); Urine Blood NEGATIVE (Negative); Urine Color YELLOW (Yellow); Urine Glucose NEGATIVE (Negative); Urine Protein NEGATIVE (Negative); Urine Specific Gravity <=1.005 (1.005-1.030); Urine Urobilinogen 0.2 mg/dL (0.2-1.0)
[2021-07-19 22:43] LABS: Urine Microscopic Reflex NO UMIC
[2021-07-20] MEDS: METOPROLOL XL 50 MG TAB PO SCH (06:00)
[2021-07-20] MEDS ORDERED: NA CHLORIDE 0.9% 250 ML IV PRN (06:16)
--- NOTE | 2021-07-20 07:27 | ECHO ---
HEIGHT: 5 ft 5 in WEIGHT: 167 lb 0 oz DATE OF STUDY: 07/19/[address]: Eric Finley MD 2-DIMENSIONAL: YES M.MODE: YES DOPPLER: YES COLOR FLOW: YES TDS: NO PORTABLE: NO DEFINITY: NO BUBBLE STUDY: NO DIAGNOSIS: CONGESTIVE HEART FAILURE CARDIAC HISTORY: CATHERIZATION: NO SURGERY: YES PROSTHETIC VALVE: NO PACEMAKER: YES MEASUREMENTS (cm) DIASTOLIC (NORMALS) SYSTOLIC (NORMALS) IVSd 1.2 (0.6-1.2) LA Diam 4.6 (1.9-4.0) LVEF 50-55% LVIDd 5.0 (3.5-5.7) LVIDs 3.9 (2.0-3.5) %FS 23% LVPWd 1.3 (0.6-1.2) Ao Diam 3.3 (2.0-3.7) 2 DIMENSIONAL ASSESSMENT: RIGHT ATRIUM: NORMAL LEFT ATRIUM: ENLARGED RIGHT VENTRICLE: PACEMAKER LEFT VENTRICLE: LEFT VENTRICULAR HYPERTROPHY TRICUSPID VALVE: MITRAL VALVE: PULMONIC VALVE: NORMAL AORTIC VALVE: THICKENED PERICARDIAL EFFUSION: NONE AORTIC ROOT: NORMAL LEFT VENTRICULAR WALL MOTION: NORMAL DOPPLER/COLOR FLOW: SEE BELOW COMMENTS: NORMAL LEFT VENTRICULAR EJECTION FRACTION 50-55%. LEFT ATRIAL ENLARGEMENT. MODERATE MITRAL AND TRICUSPID REGURGITATION. MILD AORTIC REGURGITATION. MODERATE LEFT VENTRICULAR HYPERTROPHY. TECHNOLOGIST: Zak MANUEL
[2021-07-20] MEDS ORDERED: TRAMADOL HCL 50 MG TAB PO PRN (07:54)
[2021-07-20] MEDS: FUROSEMIDE 40 MG/4 ML VIAL IV SCH (08:04)
[2021-07-20 08:38] VITALS: O2SAT 98
[2021-07-20] MEDS: MAGNESIUM OXIDE 400 MG TAB PO SCH (08:49)
[2021-07-20] MEDS ORDERED: FAMOTIDINE 20 MG TAB PO SCH ×2 (09:00)
[2021-07-20] MEDS ORDERED: METOPROLOL XL 25 MG TAB PO SCH (09:00)
[2021-07-20] MEDS ORDERED: MULTIVIT W/ MINERAL TAB PO SCH (09:00)
[2021-07-20] MEDS ORDERED: MAGNESIUM OXIDE 400 MG TAB PO SCH (09:00)
[2021-07-20] MEDS ORDERED: DRISDOL (VITAMIN D=ERGOCALCIFEROL) 50000 UNIT CAP PO SCH (09:00)
[2021-07-20 12:36] VITALS: BP 100/40; TEMP 98.2
[2021-07-20] MEDS ORDERED: RIVAROXABAN 15 MG TABLET PO SCH (17:00)
[2021-07-20] MEDS ORDERED: TRAZODONE 50 MG TABLET PO SCH (21:00)
[2021-07-20] MEDS ORDERED: ATORVASTATIN 20 MG TAB PO SCH (21:00)
[2021-07-20] MEDS ORDERED: BIMATOPROST OPTH SCH (21:00)
== END 2021-07-20 13:55 | disposition home or self-care (01) | DRG 639 ==
LOC: ER 19:25 → ERHOLD 23:32 → 2ND 07-19 15:19 → OBSVTOIN 07-19 20:56
PROVIDERS: ADMIT Internal Medicine; ATTEND Internal Medicine
DX: E11.649 Type 2 diabetes mellitus with hypoglycemia without coma (principal); I12.9 Hypertensive chronic kidney disease with stage 1 through stage 4 chronic kidney disease, or unspecified chronic kidney disease; N18.2 Chronic kidney disease, stage 2 (mild); E11.22 Type 2 diabetes mellitus with diabetic chronic kidney disease; E78.5 Hyperlipidemia, unspecified; D64.9 Anemia, unspecified; I25.10 Atherosclerotic heart disease of native coronary artery without angina pectoris; R77.8 Other specified abnormalities of plasma proteins; Z95.1 Presence of aortocoronary bypass graft; Z95.0 Presence of cardiac pacemaker; Z79.01 Long term (current) use of anticoagulants; Z79.4 Long term (current) use of insulin; Z79.899 Other long term (current) drug therapy; Z20.822 Contact with and (suspected) exposure to COVID-19
CPT/HCPCS: 36415; 70450; 71045; 80048; 80076; 81003; 82947; 83735; 83880; 84484; 85025; 85610; 93005; 93306; 96365; 96375; 99285; G0378; J1940; J7030; J7040; J7050; U0003

== ENCOUNTER 2021-10-03 18:43 | Emergency (ER) | payer OTHER, MEDICARE ==
--- OUTSIDE RECORDS SUMMARY | 2021-10-03 18:48 | XMS REPORT | Continuity of Care Document ---
:1930 Author Organization [facility] t Address [address] [place] [address] Care Team Providers Name Role Phone LISSETT [...] mg/dL 70-110 H Notified MIGEL MILLER/TESTED AT [facility] code = 1538) [facility] [facility] [address] POCT-GLUCOSE [id number] 08:21:00 Test Item Value Reference Range Interpretation Comments POC-GLUCOSE METER 239 mg/dL 70-110 H TESTED AT [facility] 6720 (BEAKER) (test code = JAC Danielle [facility] 1538) [address] BASIC METABOLIC [id number] 06:33:00 Test Item Value Reference Range Interpretation [...] = 700) CBC W/PLT COUNT & AUTO [id number] 06:18:00 Test Item Value Reference Range Interpretation [...] PERCENT (AKER) (test code = 2801) POCT-GLUCOSE [id number] 22:10:00 Test Item Value Reference Range Interpretation Comments POC-GLUCOSE METER 237 mg/dL 70-110 H TESTED AT [place] [address] ([facility]) (test code = JAC Danielle [facility] 1538) [address] POCT-GLUCOSE [id number] 17:08:00 Test Item Value Reference Range Interpretation Comments POC-GLUCOSE METER 112 mg/dL 70-110 H TESTED AT [place] [address] ([facility]) ([facility] = [facility] 1538) [address] POCT-GLUCOSE [id number] 12:28:00 Test Item Value Reference Range Interpretation Comments POC-GLUCOSE METER 157 mg/dL 70-110 H TESTED AT [place] [address] ([facility]) (test code = [facility] 1538) [address] CBC W/PLT COUNT & AUTO [id number] 08:39:00 Test Item Value Reference Range Interpretation [...] COUNTED (BEAKER) (test code = 1351) POCT-GLUCOSE [id number] 07:24:00 Test Item Value Reference Range Interpretation Comments POC-GLUCOSE METER 203 mg/dL 70-110 H TESTED AT [facility] 6720 (BEAKER) (test code = JAC GUTIERREZ 1538) [address] [id number] 05:09:00 Test Item Value Reference Range Interpretation Comments MAGNESIUM (BEAKER) (test code = 1.7 mg/dL 1.6-2.6 627) BASIC METABOLIC [id number] 05:09:00 Test Item Value Reference Range Interpretation [...] FOR DIALYSIS PATIEN TS. Specimen slightly ictericPOCT-GLUCOSE [id number] 21:48:00 Test Item Value Reference Range Interpretation Comments POC-GLUCOSE METER 204 mg/dL 70-110 H TESTED AT [facility] 67 ([facility]) (test code = [facility] 1538) [address] POCT-GLUCOSE [id number] 17:11:00 Test Item Value Reference Range Interpretation Comments POC-GLUCOSE METER 189 mg/dL 70-110 H TESTED AT [facility] 6720 ([facility]) (test code = [facility] Shashi [facility] 1538) [address] POCT-GLUCOSE [id number] 12:26:00 Test Item Value Reference Range Interpretation Comments POC-GLUCOSE METER 272 mg/dL 70-110 H TESTED AT [facility] 6720 ([facility]) (test code = [facility] 1538) [address] CBC W/PLT COUNT & AUTO [id number] 09:35:00 Test Item Value Reference Range Interpretation [...] 0-1 H PERCENT (BEAKER) (test code = 9351) (MANUAL DIFFERENTIAL)2017-09-15 09:35:00 Test Item Value Reference Range Interpretation Comments TOTAL COUNTED (BEAKER) (test code = 1351) POCT-GLUCOSE [id number] 07:18:00 Test Item Value Reference Range Interpretation Comments POC-GLUCOSE METER 176 mg/dL 70-110 H TESTED AT [facility] 6720 (BEAKER) (test code = JAC Danielle [place] 1538) [address] [id number] 07:10:00 Test Item Value Reference Range Interpretation Comments MAGNESIUM (BEAKER) 2.0 mg/dL 1.6-2.6 Specimen slightly (test code = 627) hemolyzed BASIC METABOLIC [id number] 07:10:00 Test Item Value Reference Range Interpretation [...] FOR DIALYSIS PATIEN TS. Specimen slightly ictericPOCT-GLUCOSE [id number] 21:35:00 Test Item Value Reference Range Interpretation Comments POC-GLUCOSE METER 149 mg/dL 70-110 H TESTED AT [facility] 6720 (BEAKER) (test code = JAC Danielle [place] 1538) [address] POCT-GLUCOSE [id number] 17:26:00 Test Item Value Reference Range Interpretation Comments POC-GLUCOSE METER 95 mg/dL 70-110 TESTED AT [place] [address] ([facility]) (test code = JAC Danielle [facility] [address] 1538) POCT-GLUCOSE [id number] 12:04:00 Test Item Value Reference Range Interpretation Comments POC-GLUCOSE METER 172 mg/dL 70-110 H TESTED AT [place] [address] ([facility]) (test code = JAC Danielle [facility] 1538) [address] [id number] 08:25:00 Test Item Value Reference Range Interpretation Comments MAGNESIUM (BEAKER) (test code = 1.7 mg/dL 1.6-2.6 627) BASIC METABOLIC [id number] 08:25:00 Test Item Value Reference Range Interpretation [...] FOR DIALYSIS PATIEN TS. Specimen slightly ictericPOCT-GLUCOSE [id number] 08:20:00 Test Item Value Reference Range Interpretation Comments POC-GLUCOSE METER 197 mg/dL 70-110 H TESTED AT [place] [address] ([facility]) (test code = [facility] Shashi [facility] 1538) [address] CBC W/PLT COUNT & AUTO [id number] 07:13:00 Test Item Value Reference Range Interpretation [...] PERCENT (BEAKER) (test code = 2801) POCT-GLUCOSE [id number] 21:16:00 Test Item Value Reference Range Interpretation Comments POC-GLUCOSE METER 180 mg/dL 70-110 H TESTED AT [place] [address] ([facility]) (test code = JAC [place] 1538) [address] POCT-GLUCOSE [id number] 17:23:00 Test Item Value Reference Range Interpretation Comments POC-GLUCOSE METER 102 mg/dL 70-110 TESTED AT [place] [address] ([facility]) (test code = JAC [place] 1538) [address] POCT-GLUCOSE [id number] 12:27:00 Test Item Value Reference Range Interpretation Comments POC-GLUCOSE METER 173 mg/dL 70-110 H TESTED AT [place] [address] ([facility]) (test code = JAC Danielle [place] 1538) [address] POCT-GLUCOSE [id number] 08:51:00 Test Item Value Reference Range Interpretation Comments POC-GLUCOSE METER 218 mg/dL 70-110 H TESTED AT [place] [address] ([facility]) (test code = JAC Danielle [place] 1538) [address] RAD, CHEST, 1 VIEW, NON [id number] 05:37:00Reason for exam:->s/p BiV ICD implantShould this [...] Verified Date/Time: 09/13/2017 0 5:37:41 Reading Location: [facility] B1 [id number] Ortho Consult Reading Room POCT-GLUCOSE [id number] 22:22:00 Test Item Value Reference Range Interpretation Comments POC-GLUCOSE METER 169 mg/dL 70-110 H TESTED AT [place] [address] ([facility]) (test code = JAC [place] 1538) [address] POCT-GLUCOSE [id number] 17:08:00 Test Item Value Reference Range Interpretation Comments POC-GLUCOSE METER 205 mg/dL 70-110 H TESTED AT [facility] 6720 (BEAKER) (test code = JAC [place] 1538) [address] BASIC METABOLIC [id number] 14:35:00 Test Item Value Reference Range Interpretation [...] H (BEAKER) (test code = 413) POCT-GLUCOSE [id number] 12:24:00 Test Item Value Reference Range Interpretation Comments POC-GLUCOSE METER 287 mg/dL 70-110 H TESTED AT [facility] 6720 (BEAKER) (test code = JAC [place] 1538) [address] RAD, CHEST, 1 VIEW, NON [id number] 08:32:00while patient is intubated or has chest [...] Beckwith Verified Date/Time: 09/12/2017 08:32:57 Reading Location: [facility] Radiology Reading Room BLOOD GAS, [id number] 06:35:00 Test Item Value Reference Range Interpretation [...] (test code = 1819) 44.0 % CALCIUM, [id number] 05:49:00 Test Item Value Reference Range Interpretation Comments CALCIUM IONIZED (BEAKER) (test 1.06 mmol/L 1.12-1.27 L code = 698) PH, BLOOD (BEAKER) (test code = 7.33 1810) OXYGEN SATURATION, [id number] 05:48:00 Test Item Value Reference Range Interpretation Comments O2 SATURATION (MEASURED) (BEAKER) 67.4 % (test code = 1455) [id number] 05:45:00 Test Item Value Reference Range Interpretation Comments PHOSPHORUS (BEAKER) (test code = 3.1 mg/dL 2.3-4.7 604) [id number] 05:45:00 Test Item Value Reference Range Interpretation Comments MAGNESIUM (BEAKER) (test code = 1.7 mg/dL 1.6-2.6 627) BASIC METABOLIC [id number] 05:45:00 Test Item Value Reference Range Interpretation [...] Specimen slightly ictericCBC W/PLT COUNT & AUTO [id number] 05:37:00 Test Item Value Reference Range Interpretation [...] (BEAKER) (test code = 2801) BLOOD GAS, [id number] 23:24:00 Test Item Value Reference Range Interpretation [...] (test code = 1819) 70.0 % POCT-GLUCOSE [id number] 22:06:00 Test Item Value Reference Range Interpretation Comments POC-GLUCOSE METER 136 mg/dL 70-110 H TESTED AT [facility] 6720 (BEAKER) (test code = JAC [place] 1538) [address] RAD, CHEST, 1 VIEW, NON [id number] 19:27:00Reason for exam:- >intubationShould this be performed [...] Adams Verified Date/Time: 09/11/2017 19:27:17 Reading Location: [facility] Radiology Reading Room BLOOD GAS, [id number] 18:28:00 Test Item Value Reference Range Interpretation [...] (test code = 1819) 50.0 % POCT-GLUCOSE [id number] 18:06:00 Test Item Value Reference Range Interpretation Comments POC-GLUCOSE METER 111 mg/dL 70-110 H TESTED AT [facility] 6720 (BEAKER) (test code = JAC [place] 1538) [address] [id number] 17:51:00 Test Item Value Reference Range Interpretation Comments POTASSIUM (BEAKER) (test code = 3.9 meq/L 3.5-5.1 379) [id number] 17:51:00 Test Item Value Reference Range Interpretation Comments MAGNESIUM (BEAKER) (test code = 1.6 mg/dL 1.6-2.6 627) HEMOGLOBIN AND [id number] 17:43:00 Test Item Value Reference Range Interpretation Comments HEMOGLOBIN (BEAKER) (test code = 9.1 GM/DL 13.7-17.5 L 410) HEMATOCRIT (BEAKER) (test code = 27.7 % 40.1-51.0 L 411) BLOOD GAS, [id number] 17:30:00 Test Item Value Reference Range Interpretation [...] -2.0-3.0 (test code = 387) PATIENT TEMPERATURE ([facility]) 36.9 C (test code = 1818) FIO2 (BEAKER) (test code = 1819) 50.0 % POCT-GLUCOSE [id number] 17:10:00 Test Item Value Reference Range Interpretation Comments POC-GLUCOSE METER 110 mg/dL 70-110 TESTED AT [facility] 67 ([facility]) (test code = [facility] 1538) [address] HEMOGLOBIN AND [id number] 13:11:00 Test Item Value Reference Range Interpretation Comments HEMOGLOBIN (BEAKER) (test code = 9.1 GM/DL 13.7-17.5 L 410) HEMATOCRIT (BEAKER) (test code = 27.7 % 40.1-51.0 L 411) POCT-GLUCOSE [id number] 08:07:00 Test Item Value Reference Range Interpretation Comments POC-GLUCOSE METER 129 mg/dL 70-110 H TESTED AT [place] [address] ([facility]) (test code = [facility] 1538) [address] CALCIUM, [id number] 07:22:00 Test Item Value Reference Range Interpretation Comments CALCIUM IONIZED (AKER) (test 1.13 mmol/L 1.12-1.27 code = 698) PH, BLOOD ([facility]) (test code = 7.41 1810) RAD, CHEST, 1 VIEW, NON [id number] 07:05:00while patient is intubated or has chest [...] Reece Verified Date/Time: 09/11/2017 07:05:01 Reading Location: [facility] Diagnostic Imaging Reading Room - [place] [address] OXYGEN SATURATION, [id number] 05:53:00 Test Item Value Reference Range Interpretation Comments O2 SATURATION (MEASURED) (BEAKER) 68.2 % (test code = 1455) [id number] 05:26:00 Test Item Value Reference Range Interpretation Comments PHOSPHORUS (BEAKER) (test code = 3.4 mg/dL 2.3-4.7 604) [id number] 05:26:00 Test Item Value Reference Range Interpretation Comments MAGNESIUM (BEAKER) (test code = 2.0 mg/dL 1.6-2.6 627) BASIC METABOLIC [id number] 05:26:00 Test Item Value Reference Range Interpretation [...] NOT APPLICABLE FOR DIALYSIS PATIEN TS. PROTHROMBIN [id number] 05:20:00 Test Item Value Reference Range Interpretation [...] = 2801) CBC W/PLT COUNT & AUTO [id number] 14:58:00 Test Item Value Reference Range Interpretation [...] = 2801) CBC W/PLT COUNT & AUTO [id number] 13:12:00 Test Item Value Reference Range Interpretation [...] (BEAKER) (test code = 2801) BLOOD GAS, [id number] 12:40:00 Test Item Value Reference Range Interpretation [...] code = 1819) 32.0 % BLOOD GAS, [id number] 07:45:00 Test Item Value Reference Range Interpretation [...] (test code = 1819) 40.0 % POCT-GLUCOSE [id number] 07:21:00 Test Item Value Reference Range Interpretation Comments POC-GLUCOSE METER 108 mg/dL 70-110 TESTED AT [facility] 6720 (BEAKER) (test code = JAC [place] 1538) [address] RAD, CHEST, 1 VIEW, NON [id number] 04:59:00while patient is intubated or has chest tubes.Reason for exam:->cabgShould this be performed at the bedside?->YesFINAL REPORT CLINICAL INDICATION: Postop Comparison: 09/09/2017 The cardiomediastinal contours are stable. Central pulmonary vascular congestion and bilateral parenchymal and pleural opacities are unchanged. There is no pneumothorax. Support lines are stable. Signed: Chris Velazco MDReport Verified Date/Time: 09/10/2017 04:59:34 Reading Location: [address] Reading Room [id number] 04:56:00 Test Item Value Reference Range Interpretation Comments PHOSPHORUS (BEAKER) (test code = 4.5 mg/dL 2.3-4.7 604) [id number] 04:56:00 Test Item Value Reference Range Interpretation Comments MAGNESIUM (BEAKER) (test code = 2.1 mg/dL 1.6-2.6 627) BASIC METABOLIC [id number] 04:56:00 Test Item Value Reference Range Interpretation [...] TS. Specimen slightly ictericLACTIC ACID, ARTERIAL, WHOLE [id number] 04:40:00 Test Item Value Reference Range Interpretation Comments LACTATE BLOOD ARTERIAL (2) 1.0 mmol/L 0.5-2.2 (BEAKER) (test code = 2874) Effective 10/04/2015: Units/Reference Range ChangeNew: 0.5-2.2 mmol/L Previous: 5-20 mg/dLSpecimen slightly ictericOXYGEN SATURATION, [id number] 04:35:00 Test Item Value Reference Range Interpretation Comments O2 SATURATION (MEASURED) (BEAKER) 67.2 % (test code = 1455) BLOOD GAS, [id number] 04:29:00 Test Item Value Reference Range Interpretation [...] (test code = 1819) 40.0 % CALCIUM, [id number] 04:29:00 Test Item Value Reference Range Interpretation Comments CALCIUM IONIZED (BEAKER) (test 1.06 mmol/L 1.12-1.27 L code = 698) PH, BLOOD (BEAKER) (test code = 7.42 1810) CT, BRAIN, WITHOUT [id number] 01:35:00FINAL REPORT CT, BRAIN, WITHOUT CONTRAST INDICATION: [...] MDReport Verified Date/Time: 09/10/2017 01:35:00 Reading Location: [address] Body Reading Room POCT-GLUCOSE [id number] 00:38:00 Test Item Value Reference Range Interpretation Comments POC-GLUCOSE METER 110 mg/dL 70-110 TESTED AT [place] [address] ([facility]) (test code = [facility] 1538) [address] POCT-GLUCOSE [id number] 00:38:00 Test Item Value Reference Range Interpretation Comments POC-GLUCOSE METER 117 mg/dL 70-110 H TESTED AT [address]) (test code = [facility] 1538) [address] POCT-GLUCOSE [id number] 00:38:00 Test Item Value Reference Range Interpretation Comments POC-GLUCOSE METER 94 mg/dL 70-110 TESTED AT [place] [address] ([facility]) (test code = [facility] [address] 1538) RAD, CHEST, 1 VIEW, NON [id number] 21:17:00Reason for exam:->s/p ACBFINAL REPORT CLINICAL INDICATION: Postop Comparison: Same date at 1322 hoursThe cardiomediastinal contours are stable. Central pulmonary vascular prominence and bilateral parenchymal and pleural opacities are unchanged. There is no pneumothorax. Decreasing subcutaneous emphysema overlies the left chest wall. Support lines are stable. Signed: Chris Velazco MDReport Verified Date/Time: 09/09/2017 21:17:09 Reading Location: [address] Reading Room CALCIUM, [id number] 19:51:00 Test Item Value Reference Range Interpretation Comments CALCIUM IONIZED (BEAKER) (test 1.09 mmol/L 1.12-1.27 L code = 698) PH, BLOOD (BEAKER) (test code = 7.37 1810) [id number] 19:50:00 Test Item Value Reference Range Interpretation Comments HEMOGLOBIN (BEAKER) (test code = 9.0 GM/DL 13.7-17.5 L 410) For hypotensionHEMOGLOBIN AND [id number] 19:50:00 Test Item Value Reference Range Interpretation Comments HEMOGLOBIN (BEAKER) (test code = 9.0 GM/DL 13.7-17.5 L 410) HEMATOCRIT (BEAKER) (test code = 27.2 % 40.1-51.0 L 411) For hypotensionBLOOD GAS, [id number] 17:33:00 Test Item Value Reference Range Interpretation [...] = 1414) RAD, CHEST, 1 VIEW, NON [id number] 14:12:00Reason for exam:->cabgShould this be performed at [...] MDReport Verified Date/Time: 09/09/2017 14:12:51 Reading Location: [facility] 18 02:12 [id number] 13:25:00 Test Item Value Reference Range Interpretation Comments PHOSPHORUS (BEAKER) (test code = 4.8 mg/dL 2.3-4.7 H 604) [id number] 13:25:00 Test Item Value Reference Range Interpretation Comments MAGNESIUM (BEAKER) (test code = 2.8 mg/dL 1.6-2.6 H 627) BASIC METABOLIC [id number] 13:25:00 Test Item Value Reference Range Interpretation [...] TS. Specimen slightly ictericLACTIC ACID, ARTERIAL, WHOLE [id number] 13:24:00 Test Item Value Reference Range Interpretation Comments LACTATE BLOOD 1.8 mmol/L 0.5-2.2 Specimen sligh tly ARTERIAL (2) (BEAKER) hemoly zed (test code = 2874) Effective 10/04/2015: Units/Reference Range ChangeNew: 0.5-2.2 mmol/L Previous: 5-20 mg/dLFor occult hypoperfusionPROTHROMBIN [id number] 13:18:00 Test Item Value Reference Range Interpretation Comments PROTIME (BEAKER) (test code = 20.8 seconds 11.7-14.7 H 759) INR (BEAKER) (test code = 370) 1.8 <=5.9 RECOMMENDED COUMADIN/WARFARIN INR THERAPY RANGESSTANDARD DOSE: 2.0 - 3.0 Includes: PROPHYLAXIS forvenous thrombosis, systemic embolization; TREATMENT for venous thrombosis and/or pulmonary embolus.HIGH RISK: Target INR is 2.5-3.5 for patients with mechanical heart valves.[id number] 13:18:00 Test Item Value Reference Range Interpretation Comments FIBRINOGEN LEVEL (BEAKER) (test 256 mg/dl 225-434 code = 658) [id number] 13:18:00 Test Item Value Reference Range Interpretation Comments PARTIAL THROMBOPLASTIN TIME 34.3 seconds 22.5-36.0 (BEAKER) (test code = 760) CBC W/PLT COUNT & AUTO [id number] 13:12:00 Test Item Value Reference Range Interpretation [...] (BEAKER) (test code = 2801) BLOOD GAS, [id number] 13:08:00 Test Item Value Reference Range Interpretation [...] code = 1819) 80.0 % SODIUM NA-STAT [id number] 13:08:00 Test Item Value Reference Range Interpretation Comments SODIUM (BEAKER) (test code = 381) 129 meq/L 135-148 L GLUCOSE-STAT [id number] 13:08:00 Test Item Value Reference Range Interpretation Comments GLUCOSE RANDOM (BEAKER) (test code 113 mg/dL 70-110 H = 652) HGB/HCT (H&H) - STAT [id number] 13:08:00 Test Item Value Reference Range Interpretation Comments HEMOGLOBIN (BEAKER) (test code = 10.9 g/dL 13.0-16.8 L 410) HEMATOCRIT (BEAKER) (test code = 32.0 % 40.0-50.0 L 411) PLATELET [id number] 13:06:00 Test Item Value Reference Range Interpretation Comments PLATELET COUNT (BEAKER) (test 151 K/CU MM 150-450 code = 756) OXYGEN SATURATION, [id number] 13:06:00 Test Item Value Reference Range Interpretation Comments O2 SATURATION (MEASURED) (BEAKER) 74.0 % (test code = 1455) For occult hypoperfusionPOTASSIUM-STAT [id number] 13:06:00 Test Item Value Reference Range Interpretation Comments POTASSIUM (BEAKER) (test code = 4.3 meq/L 3.6-5.5 379) CALCIUM, [id number] 13:05:00 Test Item Value Reference Range Interpretation [...] MM 55.0-65.0 H (test code = 1413) [id number] 11:54:00 Test Item Value Reference Range Interpretation Comments ACTIVATED CLOTTING TIME 109 sec TEST ED AT [place] [address] ([facility]) (test code = [place]AC [place] 441) [address] [id number] 11:54:00 Test Item Value Reference Range Interpretation Comments ACTIVATED CLOTTING TIME 510 sec TEST ED AT [place] [address] ([facility]) (test code = JAC [place] 441) [address] [id number] 11:54:00 Test Item Value Reference Range Interpretation Comments ACTIVATED CLOTTING TIME 483 sec TEST ED AT [facility] 6720 (BEAKER) (test code = JAC Danielle [place] 441) [address] [id number] 11:54:00 Test Item Value Reference Range Interpretation Comments ACTIVATED CLOTTING TIME 450 sec TEST ED AT [facility] 6720 ([facility]) (test code = JAC [place] 441) [address] PROTHROMBIN [id number] 11:41:00 Test Item Value Reference Range Interpretation Comments PROTIME (BEAKER) (test code = 23.4 seconds 11.7-14.7 H 759) INR (BEAKER) (test code = 370) 2.1 <=5.9 RECOMMENDED COUMADIN/WARFARIN INR THERAPY RANGESSTANDARD DOSE: 2.0 - 3.0 Includes: PROPHYLAXIS forvenous thrombosis, systemic embolization; TREATMENT for venous thrombosis and/or pulmonary embolus.HIGH RISK: Target INR is 2.5-3.5 for patients with mechanical heart valves.[id number] 11:41:00 Test Item Value Reference Range Interpretation Comments FIBRINOGEN LEVEL (BEAKER) (test 231 mg/dl 225-434 code = 658) [id number] 11:41:00 Test Item Value Reference Range Interpretation Comments PARTIAL THROMBOPLASTIN TIME 35.0 seconds 22.5-36.0 (BEAKER) (test code = 760) PLATELET [id number] 11:26:00 Test Item Value Reference Range Interpretation Comments PLATELET COUNT (BEAKER) (test 134 K/CU MM 150-450 L code = 756) BLOOD GAS, [id number] 11:16:00 Test Item Value Reference Range Interpretation [...] code = 1819) 100.0 % SODIUM NA-STAT [id number] 11:16:00 Test Item Value Reference Range Interpretation Comments SODIUM (BEAKER) (test code = 381) 129 meq/L 135-148 L HGB/HCT (H&H) - STAT [id number] 11:16:00 Test Item Value Reference Range Interpretation Comments HEMOGLOBIN (BEAKER) (test code = 8.4 g/dL 13.0-16.8 L 410) HEMATOCRIT (BEAKER) (test code = 25.0 % 40.0-50.0 L 411) GLUCOSE-STAT [id number] 11:15:00 Test Item Value Reference Range Interpretation Comments GLUCOSE RANDOM (BEAKER) (test code = 98 mg/dL 70-110 652) POTASSIUM-STAT [id number] 11:15:00 Test Item Value Reference Range Interpretation Comments POTASSIUM (BEAKER) (test code = 4.1 meq/L 3.6-5.5 379) CALCIUM, [id number] 11:15:00 Test Item Value Reference Range Interpretation Comments CALCIUM IONIZED (BEAKER) (test 1.13 mmol/L 1.12-1.27 code = 698) PH, BLOOD (BEAKER) (test code = 7.44 1810) GLUCOSE-STAT [id number] 10:35:00 Test Item Value Reference Range Interpretation Comments GLUCOSE RANDOM (BEAKER) (test code = 81 mg/dL 70-110 652) POTASSIUM-STAT [id number] 10:35:00 Test Item Value Reference Range Interpretation Comments POTASSIUM (BEAKER) (test code = 4.8 meq/L 3.6-5.5 379) BLOOD GAS, [id number] 10:35:00 Test Item Value Reference Range Interpretation [...] code = 1819) 70.0 % SODIUM NA-STAT [id number] 10:35:00 Test Item Value Reference Range Interpretation Comments SODIUM (BEAKER) (test code = 381) 128 meq/L 135-148 L HGB/HCT (H&H) - STAT [id number] 10:35:00 Test Item Value Reference Range Interpretation Comments HEMOGLOBIN (BEAKER) (test code = 8.1 g/dL 13.0-16.8 L 410) HEMATOCRIT (BEAKER) (test code = 24.0 % 40.0-50.0 L 411) SODIUM NA-STAT [id number] 10:08:00 Test Item Value Reference Range Interpretation Comments SODIUM (BEAKER) (test code = 381) 129 meq/L 135-148 L HGB/HCT (H&H) - STAT [id number] 10:08:00 Test Item Value Reference Range Interpretation Comments HEMOGLOBIN (BEAKER) (test code = 8.7 g/dL 13.0-16.8 L 410) HEMATOCRIT (BEAKER) (test code = 26.0 % 40.0-50.0 L 411) GLUCOSE-STAT [id number] 10:07:00 Test Item Value Reference Range Interpretation Comments GLUCOSE RANDOM (BEAKER) (test code = 82 mg/dL 70-110 652) POTASSIUM-STAT [id number] 10:07:00 Test Item Value Reference Range Interpretation Comments POTASSIUM (BEAKER) (test code = 4.4 meq/L 3.6-5.5 379) BLOOD GAS, [id number] 10:07:00 Test Item Value Reference Range Interpretation [...] code = 1819) 70.0 % SODIUM NA-STAT [id number] 09:26:00 Test Item Value Reference Range Interpretation Comments SODIUM (BEAKER) (test code = 381) 129 meq/L 135-148 L HGB/HCT (H&H) - STAT [id number] 09:26:00 Test Item Value Reference Range Interpretation Comments HEMOGLOBIN (BEAKER) (test code = 10.3 g/dL 13.0-16.8 L 410) HEMATOCRIT (BEAKER) (test code = 30.0 % 40.0-50.0 L 411) CALCIUM, [id number] 09:25:00 Test Item Value Reference Range Interpretation Comments CALCIUM IONIZED (BEAKER) (test 1.06 mmol/L 1.12-1.27 L code = 698) PH, BLOOD (BEAKER) (test code = 7.45 1810) BLOOD GAS, [id number] 09:25:00 Test Item Value Reference Range Interpretation [...] (test code = 1819) 100.0 % GLUCOSE-STAT [id number] 09:11:00 Test Item Value Reference Range Interpretation Comments GLUCOSE RANDOM (BEAKER) (test code 101 mg/dL 70-110 = 652) POTASSIUM-STAT [id number] 09:11:00 Test Item Value Reference Range Interpretation Comments POTASSIUM (BEAKER) (test code = 3.9 meq/L 3.6-5.5 379) POCT-GLUCOSE [id number] 07:11:00 Test Item Value Reference Range Interpretation Comments POC-GLUCOSE METER 93 mg/dL 70-110 TESTED AT [facility] 6720 (BEAKER) (test code = JAC Danielle [facility] [address] 1538) POCT-GLUCOSE [id number] 05:54:00 Test Item Value Reference Range Interpretation Comments POC-GLUCOSE METER 59 mg/dL 70-110 L TESTED AT [facility] 6720 (BEAKER) (test code = [facility] Shashi [facility] [address] 1538) BASIC METABOLIC [id number] 05:09:00 Test Item Value Reference Range Interpretation [...] S NOT APPLICABLE FOR DIALYSIS PATIEN TS. [id number] 04:56:00 Test Item Value Reference Range Interpretation Comments PARTIAL THROMBOPLASTIN TIME 35.6 seconds 22.5-36.0 (BEAKER) (test code = 760) PROTHROMBIN [id number] 04:55:00 Test Item Value Reference Range Interpretation Comments PROTIME (BEAKER) (test code = 17.8 seconds 11.7-14.7 H 759) INR (BEAKER) (test code = 370) 1.5 <=5.9 RECOMMENDED COUMADIN/WARFARIN INR THERAPY RANGESSTANDARD DOSE: 2.0 - 3.0 Includes: PROPHYLAXIS forvenous thrombosis, systemic embolization; TREATMENT for venous thrombosis and/or pulmonary embolus.HIGH RISK: Target INR is 2.5-3.5 for patients with mechanical heart valves.POCT-GLUCOSE [id number] 21:20:00 Test Item Value Reference Range Interpretation Comments POC-GLUCOSE METER 101 mg/dL 70-110 TESTED AT [place] [address] ([facility]) (test code = [facility] 1538) [id number] POCT-GLUCOSE [id number] 16:36:00 Test Item Value Reference Range Interpretation Comments POC-GLUCOSE METER 112 mg/dL 70-110 H TESTED AT [place] [address] ([facility]) (test code = [facility] 1538) [address] B-TYPE NATRIURETIC FACTOR (BNP)2017-09-08 14:47:00 Test Item Value Reference Range Interpretation Comments B-TYPE NATRIURETIC PEPTIDE 1769 pg/mL 0-100 H ([facility]) (test code = 700) With next blood drawPOCT-GLUCOSE [id number] 11:43:00 Test Item Value Reference Range Interpretation Comments POC-GLUCOSE METER 167 mg/dL 70-110 H TESTED AT [place] [address] ([facility]) (test code = [facility] 1538) [id number] POCT-GLUCOSE [id number] 07:16:00 Test Item Value Reference Range Interpretation Comments POC-GLUCOSE METER 86 mg/dL 70-110 TESTED AT [place] [address] ([facility]) (test code = [facility] [address] 1538) BASIC METABOLIC [id number] 05:34:00 Test Item Value Reference Range Interpretation [...] S NOT APPLICABLE FOR DIALYSIS PATIEN TS. [id number] 04:38:00 Test Item Value Reference Range Interpretation Comments PARTIAL THROMBOPLASTIN TIME 31.5 seconds 22.5-36.0 (BEAKER) (test code = 760) PROTHROMBIN [id number] 04:37:00 Test Item Value Reference Range Interpretation Comments PROTIME (BEAKER) (test code = 18.2 seconds 11.7-14.7 H 759) INR (BEAKER) (test code = 370) 1.5 <=5.9 RECOMMENDED COUMADIN/WARFARIN INR THERAPY RANGESSTANDARD DOSE: 2.0 - 3.0 Includes: PROPHYLAXIS forvenous thrombosis, systemic embolization; TREATMENT for venous thrombosis and/or pulmonary embolus.HIGH RISK: Target INR is 2.5-3.5 for patients with mechanical heart valves.BASIC METABOLIC [id number] 23:53:00 Test Item Value Reference Range Interpretation [...] S NOT APPLICABLE FOR DIALYSIS PATIEN TS. [id number] 23:48:00 Test Item Value Reference Range Interpretation Comments PHOSPHORUS (BEAKER) 4.3 mg/dL 2.3-4.7 Specimen slightly (test code = 604) hemolyzed [id number] 23:42:00 Test Item Value Reference Range Interpretation Comments MAGNESIUM (BEAKER) (test code = 2.0 mg/dL 1.6-2.6 627) [id number] 23:37:00 Test Item Value Reference Range Interpretation Comments PARTIAL THROMBOPLASTIN TIME 32.3 seconds 22.5-36.0 (BEAKER) (test code = 760) PROTHROMBIN [id number] 23:36:00 Test Item Value Reference Range Interpretation [...] PERCENT (BEAKER) (test code = 2801) POCT-GLUCOSE [id number] 23:25:00 Test Item Value Reference Range Interpretation Comments POC-GLUCOSE METER 212 mg/dL 70-110 H TESTED AT [facility] 6720 (BEAKER) (test code = [place] 1538) [id number] RAD, CHEST, 2 [id number] 22:44:00Reason for exam:->preopFINAL REPORT INDICATION: preop COMPARISON: [...] MDReport Verified Date/Time: 09/07/2017 22:44:39 Reading Location: [facility] B1 C013Y CT Body Reading Room GLOBIN [id number] 14:19:00 Test Item Value Reference Range Interpretation Comments HEMOGLOBIN A1C (BEAKER) (test code = 8.4 % 4.3-6.1 H 368) RAD, CHEST, 2 [id number] 11:22:00Reason for Exam:->Pre-OpFINAL REPORT Chest two views Discussion: There is interstitial congestion with patchy basilar opacities right greater than left and suspected small effusions. Heart size upper limits of normal. No pneumothorax. Findings suggest CHF. Signed: Susannah Pope Verified Date/Time: 09/04/2017 11:22:30 Reading Location: [facility] Reading Room
--- NOTE | 2021-10-03 21:17 | RAD REPORT ---
EXAM DESCRIPTION: CT - Head Brain Wo Cont - 10/03/2021 9:06 pm CLINICAL HISTORY: Mental status change, unknown cause COMPARISON: Head Brain Wo Cont dated 07/18/2021 TECHNIQUE: All CT scans are performed using dose optimization technique as appropriate and may inclu de automated exposure control or mA/KV adjustment according to patient size. FINDINGS: No intracranial hemorrhage, hydrocephalus or extra-axial fluid collection.No areas of brai n edema or evidence of midline shift. Cerebral atrophy and chronic small vessel ischemic changes. The paranasal sinuses and mastoids are clear. The calvarium is intact. IMPRESSION: No acute intracranial abnormality.
[2021-10-03 21:20] LABS: Absolute Lymphocytes (CBC) 0.9 K/uL (0.7-4.9); Lymphocytes % 14.1 % (15.3-44.8); MPV 7.6 fL (7.6-11.3); RBC Red Blood Cell Count 3.65 M/uL (4.33-5.43)
[2021-10-03 21:23] LABS: Urine Blood Trace-intact (Negative); Urine Glucose Negative (Negative); Urine Protein Negative (Negative); Urine pH 6.5 (5.0-7.0)
[2021-10-03 21:27] LABS: Protime INR 2.15
[2021-10-03 21:35] LABS: Albumin 3.2 g/dL (3.4-5.0); Bilirubin Total 1.1 mg/dL (0.2-1.0); Potassium 4.5 mmol/L (3.5-5.1); Protein, Total 6.8 g/dL (6.4-8.2)
--- NOTE | 2021-10-03 21:42 | ER ---
Nurse's Notes [facility] Name: Sebastián Naylor Age: 89 yrs Sex: Male : 1930 Arrival Date: 10/03/2021 Time: 18:47 Bed 3 Private MD: Diagnosis: Altered mental status, unspecified Presentation: 10/03 18:56 Chief complaint: EMS states: Pt is from home, family found pt unresponsive and called EMS, pt awakened to sternal rub, BGL 174, all VS WNL, cardiac rhythm paced, pt drowsy and quickly falls asleep when not being spoken to, answers questions appropriately when awake, oriented x 3, recently started taking additional diuretics prescribed by PCP for increased swelling. Coronavirus screen: Vaccine status: Patient reports receiving the 2nd dose of the covid vaccine. Ebola Screen: No symptoms or risks identified at this time. Initial Sepsis Screen: Does the patient meet any 2 criteria? No. Patient's initial sepsis screen is negative. Does the patient have a suspected source of infection? No. Patient's initial sepsis screen is negative. Risk Assessment: Do you want to hurt yourself or someone else? Patient reports no desire to harm self or others. Onset of symptoms was October 03, 2021. 18:56 Method Of Arrival: Ambulatory 18:56 Acuity: PRATIBHA 3 ph 18:59 Chief complaint:. jh6 Triage Assessment: 18:58 General: Appears in no apparent distress. comfortable, well groomed, Behavior is calm, ph cooperative, appropriate for age. Pain: Denies pain. Neuro: Chadwick Agitation-Sedation Scale (RASS): -1 Drowsy Level of Consciousness is obeys commands, lethargic, Oriented to person, place, time. Cardiovascular: Capillary refill < 3 seconds in bilateral fingers Patient's skin is warm and dry. Edema is 1+ to left ankle and right ankle Rhythm is Respiratory: Airway is patent Respiratory effort is even, unlabored. Derm: Skin is healthy with good turgor, Skin is pink, warm \T\ dry. Musculoskeletal: Circulation, motion, and sensation intact. Range of motion: intact in all extremities. 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 - Social history:: Smoking status: Patient denies any tobacco usage or history of. Screenin:00 Abuse screen: Denies threats or abuse. Denies injuries from another. Nutritional jh6 screening: No deficits noted. Tuberculosis screening: No symptoms or risk factors identified. Fall Risk IV access (20 points). Gait- Weak (10 pts.). Assessment: 19:00 General: Appears in no apparent distress. Behavior is calm, cooperative. Pain: Denies jh6 pain. Neuro: No deficits noted. Oriented to person, place, situation, Contact Center Team Lead are equal bilaterally. Cardiovascular: No deficits noted. Respiratory: No deficits noted. GI: No deficits noted. 19:03 General: Behavior is drowsy. Neuro: Respiratory: Airway is patent Trachea midline tw5 Respiratory effort is even, unlabored, Respiratory pattern is regular. 19:18 General: Appears in no apparent distress. comfortable, Behavior is calm, cooperative, lg3 drowsy. Pain: Denies pain. Neuro: Oriented to person, place, situation, Contact Center Team Lead are equal bilaterally Moves all extremities. Speech is normal. Cardiovascular: No deficits noted. Denies chest pain, shortness of breath. Respiratory: No deficits noted. Airway is patent Trachea midline Respiratory effort is even, unlabored, Respiratory pattern is regular. GI: No deficits noted. No signs and/or symptoms were reported involving the gastrointestinal system. Derm: No deficits noted. Reports increased lower extremity swelling. Musculoskeletal: No deficits noted. Circulation, motion, and sensation intact. Capillary refill < 3 seconds, Range of motion: intact in all extremities. 20:31 Reassessment: Patient appears in no apparent distress at this time. No changes from lg3 previously documented assessment. Patient and/or family updated on plan of care and expected duration. Pain level reassessed. Patient is alert, oriented x 3, equal unlabored respirations, skin warm/dry/pink. 22:21 Reassessment: Patient appears in no apparent distress at this time. No changes from lg3 previously documented assessment. Patient and/or family updated on plan of care and expected duration. Pain level reassessed. Patient is alert, oriented x 3, equal unlabored respirations, skin warm/dry/pink. Patient states feeling better. Patient states symptoms have improved. Vital Signs: 18:56 BP 142 / 86; Pulse 76; Resp 16; Temp 97.5; Pulse Ox 98% on R/A; Weight 85.28 kg; Height ph 5 ft. 7 in. (170.18 cm); 19:03 BP 142 / 86; Pulse 71; Resp 16; Pulse Ox 99% on R/A; tw5 20:31 BP 133 / 89; Pulse 79; Resp 20; Pulse Ox 98% on R/A; lg3 22:27 BP 132 / 84; Pulse 76; Resp 18 S; Pulse Ox 99% on R/A; lg3 18:56 Body Mass Index 29.44 (85.28 kg, 170.18 cm) ph Vitals: 19:00 Cardiac Rhythm Assessment Regular. [facility] ED Course: 18:47 Patient arrived in ED. 5 18:59 Maintain EMS IV. IV Changed dressing on Flushed left forearm saline lock. 6 19:00 cnc laser operator on. Pulse ox on. NIBP on. [facility] 19:00 Arm band placed on left wrist. 6 19:01 Triage completed. ph 19:02 Patient has correct armband on for positive identification. Bed in low position. Call ph light in reach. Side rails up X2. 19:03 Izzy Crooks is Primary Nurse. tw5 19:20 Aly Rondon MD is Attending Physician. kdr 20:46 Blood Culture Adult (2) Sent. lg3 20:46 CBC with Diff Sent. lg3 20:46 CMP Sent. lg3 20:46 Lactate Sent. lg3 20:46 Protime (+inr) Sent. lg3 20:46 Ptt, Activated Sent. lg3 21:08 CT Head Brain wo Cont In Process Unspecified. EDMS 21:42 CXR XRAY In Process Unspecified. EDMS 22:27 No provider procedures requiring assistance completed. IV discontinued, intact, lg3 bleeding controlled, No redness/swelling at site. Pressure dressing applied. 22:28 Blood Culture Adult (2) Sent. lg3 Administered Medications: No medications were administered Outcome: 21:42 Discharge ordered by . kdr 22:27 Discharged to home via wheelchair, with family. lg3 22:27 Condition: improved 22:27 Discharge instructions given to patient, family, Instructed on discharge instructions, follow up and referral plans. Demonstrated understanding of instructions, follow-up care. 22:28 Patient left the ED. lg3 Signatures: Dispatcher [employer] EDMS Aly Rondon MD MD kdr Hall, Patricia RN RN Kurt [place] [id number] Monica Ferrera RN RN lg3 Izzy Crooks [facility] Renee Kohli RN RN jh6 Corrections: (The following items were deleted from the chart) 19:02 19:01 Allergies: seasonal allergies; ph ph
--- NOTE | 2021-10-03 21:43 | EDPHYS ---
Physician Documentation [facility] Name: Sebastián Naylor Age: 89 yrs Sex: Male : 1930 Arrival Date: 10/03/2021 Time: 18:47 Bed 3 Private MD: ED Physician Aly Rondon HPI: 10/03 20:19 This 89 yrs old Male presents to ER via Ambulatory with complaints of Unable to arouse. kdr 20:19 The patient presents with decreased mental status, decreased responsiveness. Onset: The kdr symptoms/episode began/occurred suddenly, just prior to arrival. Possible causes: CVA or TIA, sepsis, unknown. Associated signs and symptoms: Pertinent positives: weakness, Pertinent negatives: abdominal pain, agitation, ataxia, blurred vision, chest pain, combativeness, confusion, diaphoresis, diarrhea, dizziness, headache, lightheadedness, nausea, numbness, palpitations, seizure, shortness of breath, tingling, vertigo, weakness. Patient's baseline: Neuro: orientated to person, place, time, Motor: no deficits, Ambulation: walks with assist only, Patient is mildly weak, Speech: normal for age. The patient has not experienced similar symptoms in the past. The patient has not recently seen a physician. 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 - Social history:: Smoking status: Patient denies any tobacco usage or history of. ROS: 20:19 Constitutional: Negative for fever, chills, and weight loss, Eyes: Negative for injury, kdr pain, redness, and discharge, ENT: Negative for injury, pain, and discharge, Neck: Negative for injury, pain, and swelling, Cardiovascular: Negative for chest pain, palpitations, and edema, Respiratory: Negative for shortness of breath, cough, wheezing, and pleuritic chest pain, Abdomen/GI: Negative for abdominal pain, nausea, vomiting, diarrhea, and constipation, Back: Negative for injury and pain, : Negative for injury, bleeding, discharge, and swelling, MS/Extremity: Negative for injury and deformity, Skin: Negative for injury, rash, and discoloration, Psych: Negative for depression, anxiety, suicide ideation, homicidal ideation, and hallucinations, Allergy/Immunology: Negative for hives, rash, and allergies, Endocrine: Negative for neck swelling, polydipsia, polyuria, polyphagia, and marked weight changes, Hematologic/Lymphatic: Negative for swollen nodes, abnormal bleeding, and unusual bruising. 20:19 Neuro: Positive for She was difficult to awaken prior to arrival. Upon arrival he was at baseline. There is no seizure activity. Exam: 20:19 Constitutional: This is a well developed, well nourished patient who is awake, alert, kdr and in no acute distress. Head/Face: Normocephalic, atraumatic. Eyes: Pupils equal round and reactive to light, extra-ocular motions intact. Lids and lashes normal. Conjunctiva and sclera are non-icteric and not injected. Cornea within normal limits. Periorbital areas with no swelling, redness, or edema. Neck: Trachea midline, no thyromegaly or masses palpated, and no cervical lymphadenopathy. Supple, full range of motion without nuchal rigidity, or vertebral point tenderness. No Meningismus. Chest/axilla: Normal chest wall appearance and motion. Nontender with no deformity. No lesions are appreciated. Cardiovascular: Regular rate and rhythm with a normal S1 and S2. No gallops, murmurs, or rubs. Normal PMI, no JVD. No pulse deficits. Respiratory: Lungs have equal breath sounds bilaterally, clear to auscultation and percussion. No rales, rhonchi or wheezes noted. No increased work of breathing, no retractions or nasal flaring. Abdomen/GI: Soft, non-tender, with normal bowel sounds. No distension or tympany. No guarding or rebound. No evidence of tenderness throughout. Back: No spinal tenderness. No costovertebral tenderness. Full range of motion. Skin: Warm, dry with normal turgor. Normal color with no rashes, no lesions, and no evidence of cellulitis. MS/ Extremity: Pulses equal, no cyanosis. Neurovascular intact. Full, normal range of motion. Neuro: Awake and alert, GCS 15, oriented to person, place, time, and situation. Cranial nerves II-XII grossly intact. Motor strength 5/5 in all extremities. Sensory grossly intact. Cerebellar exam normal. Normal gait. Psych: Awake, alert, with orientation to person, place and time. Behavior, mood, and affect are within normal limits. 20:19 : She had mild scrotal swelling and was incontinent of urine. scrotum is nontender. 20:30 ECG was reviewed by the Attending Physician. kdr Vital Signs: 18:56 BP 142 / 86; Pulse 76; Resp 16; Temp 97.5; Pulse Ox 98% on R/A; Weight 85.28 kg; Height ph 5 ft. 7 in. (170.18 cm); 19:03 BP 142 / 86; Pulse 71; Resp 16; Pulse Ox 99% on R/A; tw5 20:31 BP 133 / 89; Pulse 79; Resp 20; Pulse Ox 98% on R/A; lg3 22:27 BP 132 / 84; Pulse 76; Resp 18 S; Pulse Ox 99% on R/A; lg3 18:56 Body Mass Index 29.44 (85.28 kg, 170.18 cm) ph MDM: 21:42 Patient medically screened. kdr 21:44 Data reviewed: vital signs, nurses notes, lab test result(s), radiologic studies. kdr Counseling: I had a detailed discussion with the patient and/or guardian regarding: the historical points, exam findings, and any diagnostic results supporting the discharge/admit diagnosis, lab results, radiology results, the need for outpatient follow up. 22:27 ED course: Patient has been back at baseline since arrival to the ED. According to his kdr [id number], he is acting normally at this time. It is unclear why he was difficult to arouse earlier in the evening. Is not the suggestion of syncope at this time but rather that he was just difficult to arouse briefly. Vital signs have been stable. Other than some mild congestion on his chest x-ray, and some pedal edema 1-2+, the patient was otherwise stable in the ED. He remains at his baseline. I discussed with Dr. Salmon and reviewed the lab data. He indicated that he would see the patient in follow-up. I advised the [id number] to have the patient follow-up with Dr. Salmon who the next 1 to 2 days.. 10/03 19:36 Order name: Blood Culture Adult (2) kdr 10/03 19:36 Order name: CBC with Diff; Complete Time: 21:35 kdr 10/03 19:36 Order name: CMP; Complete Time: 21:43 kdr 10/03 19:36 Order name: Lactate; Complete Time: 21:15 kdr 10/03 19:36 Order name: Protime (+inr); Complete Time: 21:35 kdr 10/03 19:36 Order name: Ptt, Activated; Complete Time: 21:35 kdr 10/03 19:36 Order name: Accucheck; Complete Time: 20:45 kdr 10/03 19:36 Order name: Cardiac monitoring; Complete Time: 20:30 kdr 10/03 19:36 Order name: Cath; Complete Time: 21:17 kdr 10/03 19:36 Order name: EKG - Nurse/Tech; Complete Time: 20:30 kdr 10/03 19:48 Order name: CT Head Brain wo Cont; Complete Time: 21:35 kdr 10/03 20:55 Order name: Glucose, Ancillary Testing; Complete Time: 21:15 EDMS 10/03 21:16 Order name: CXR XRAY; Complete Time: 22:04 kdr 10/03 21:23 Order name: Urine Dipstick-Ancillary; Complete Time: 21:35 EDMS 10/03 19:36 Order name: IV Saline Lock - Large Bore; Complete Time: 20:30 kdr 10/03 19:36 Order name: Labs collected and sent; Complete Time: 20:45 kdr 10/03 19:36 Order name: O2 Sat Monitoring; Complete Time: 20:30 kdr 10/03 19:36 Order name: Urine Dipstick-Ancillary (obtain specimen); Complete Time: 21:19 kdr EC:30 Rate is 78 beats/min. Rhythm is regular, Paced with No ectopy. QRS [place] is Normal. [place] kdr interval is normal. QRS interval is normal. QT interval is normal. Clinical impression: No evidence of ischemia and Paced rhythm. Administered Medications: No medications were administered Disposition Summary: 10/03/21 21:42 Discharge Ordered Location: Home kdr Problem: new kdr Symptoms: are resolved kdr Condition: Stable kdr Diagnosis - Altered mental status, unspecified kdr Followup: kdr - With: Private Physician - When: 2 - 3 days - Reason: If symptoms return, Further diagnostic work-up, Recheck today's complaints, Continuance of care, Re-evaluation by your physician Discharge Instructions: - Discharge Summary Sheet kdr - Confusion kdr - Weakness, [id number] kdr Forms: - Medication Reconciliation Form kdr - Thank You Letter kdr Signatures: Dispatcher [employer] Aly Valiente MD MD kdr Adrienne York RN RN ph Corrections: (The following items were deleted from the chart) 19:02 19:01 Allergies: seasonal allergies; ph ph
--- NOTE | 2021-10-03 21:59 | RAD REPORT ---
EXAM DESCRIPTION: RAD - Chest Single View - 10/03/2021 9:40 pm CLINICAL HISTORY: CONGESTION COMPARISON: Chest Pa And Lat (2 Views) dated 10/03/2021; Chest Single View dated 07/19/2021; Chest Sing le View dated 07/18/2021; Chest Pa And Lat (2 Views) dated 07/20/2019 FINDINGS: Lines: None. Lungs: Diffuse prominence of the pulmonary interstitium. Pleural: Unchanged small left pleural effusion. Cardiac: Cardiomegaly. Pacemaker. Bones: No acute fractures. Other: IMPRESSION: Small left pleural effusion and pulmonary vascular congestion.
[2021-10-03 22:36] VITALS: TEMP 97.5
[2021-10-03 22:40] VITALS: BP 132/84; O2SAT 99
--- NOTE | 2021-10-05 14:36 | EKG ---
Test Date: 2021-10-03 Test Time: 20:27:42 Line Installation Supervisor: MEASUREMENT RESULTS: Intervals: Rate: 78 TN: 240 QRSD: 142 QT: 432 QTc: 492 [place]: P: 72 TN: 240 QRS: 144 T: -41 INTERPRETIVE STATEMENTS: Electronic ventricular pacemaker Compared to ECG 07/18/2021 19:46:05 No significant changes Electronically Signed On 10-05-21 14:32:35 CDT by Raj Pagan
== END 2021-10-03 22:28 | disposition home or self-care (01) ==
LOC: ER 18:43
DX: R41.82 Altered mental status, unspecified (principal); E11.9 Type 2 diabetes mellitus without complications; Z95.0 Presence of cardiac pacemaker; Z79.01 Long term (current) use of anticoagulants
CPT/HCPCS: 36415; 70450; 71045; 71046; 80053; 81003; 82947; 83605; 85025; 85610; 85730; 87040; 93005; 99284

== ENCOUNTER 2021-12-19 09:33 | Emergency (ER) | payer OTHER, MEDICARE ==
--- NOTE | 2021-12-19 10:47 | RAD REPORT ---
EXAM DESCRIPTION: CT - Head Brain Wo Cont - 12/19/2021 10:37 am CLINICAL HISTORY: fall Fall, trauma, head injury and neck injury COMPARISON: Facial Bones W/ Mpr dated 12/19/2021; Head Brain Wo Cont dated 10/03/2021; C Spine Wo Con d ated 12/19/2021 TECHNIQUE: All CT scans are performed using dose optimization technique as appropriate and may inclu de automated exposure control or mA/KV adjustment according to patient size. FINDINGS: No intracranial hemorrhage, hydrocephalus or extra-axial fluid collection.Mild brain atrop hy with mild periventricular and deep white matter chronic microvascular ischemic changes.No areas of brain edema or evidence of midline shift. Vertebral atherosclerosis bilaterally. The paranasal sinuses and mastoids are clear. The calvarium is intact. 15 mm right frontal scalp rigoberto krys. IMPRESSION: No acute intracranial abnormality.
--- NOTE | 2021-12-19 10:50 | RAD REPORT ---
EXAM DESCRIPTION: CT - C Spine Wo Con - 12/19/2021 10:37 am CLINICAL HISTORY: fall Fall, trauma, neck injury COMPARISON: Facial Bones W/ Mpr dated 12/19/2021; Head Brain Wo Cont dated 12/19/2021 FINDINGS: Vertebral body heights are maintained. Mild mid and lower cervical spondylosis noted. No evidence of acute cervical spine fracture or subluxation. Prevertebral soft tissues are normal in thickness. Mild bilateral carotid atherosclerosis IMPRESSION: Negative for acute cervical spine abnormality. Mild cervical degenerative changes noted. All CT scans are performed using dose optimization technique as appropriate and may include automated exposure control or mA/KV adjustment according to patient size.
--- NOTE | 2021-12-19 10:52 | RAD REPORT ---
EXAM DESCRIPTION: CT - CTFB CLINICAL HISTORY: nasal swelling Pain and swell COMPARISON: No comparisons TECHNIQUE: Axial 2 mm thick images of the face were obtained with sagittal and coronal reconstructio n images. All CT scans are performed using dose optimization technique as appropriate and may include automated exposure control or mA/KV adjustment according to patient size. FINDINGS: Mild right-sided nasal bone fracture is present.No additional facial bone fracture is evid ent.The mandible is intact. Right frontal scalp hematoma. The globes and orbital contents are grossly unremarkable.The paranasal sinuses and mastoids are clear . IMPRESSION: Mild right-sided nasal bone fracture seen.
--- NOTE | 2021-12-19 11:56 | ER ---
Nurse's Notes [facility] Name: Sebastián Naylor Age: 89 yrs Sex: Male : 1930 Arrival Date: 12/19/2021 Time: 09:36 Bed Waiting Private MD: [place] V Diagnosis: Fracture of nasal bones Presentation: 12/19 09:54 Chief complaint: Patient states: Pt tripped and fell, striking his left face on the [facility] cement ground, approximately 5 days ago, currently taking xarelto, reporting intermittent headaches. Denies LOC. Purple and yellow bruising noted to right face and underneath right and left eyes. Half dollar-sized hematoma noted above left eyebrow. Coronavirus screen: Vaccine status: Patient reports receiving the 2nd dose of the covid vaccine. Client denies travel out of the [place] in the last 14 days. Ebola Screen: Patient negative for fever greater than or equal to 101.5 degrees Fahrenheit, and additional compatible Ebola Virus Disease symptoms Patient denies exposure to infectious person. Patient denies travel to an Ebola-affected area in the 21 days before illness onset. Mechanism of Injury: resulted from a fall, while walking, impacting a hard surface, hitting floor. Initial Sepsis Screen: Does the patient meet any 2 criteria? No. Patient's initial sepsis screen is negative. Does the patient have a suspected source of infection? No. Patient's initial sepsis screen is negative. Risk Assessment: Do you want to hurt yourself or someone else? Patient reports no desire to harm self or others. Onset of symptoms was December 13, 2021. 09:54 Method Of Arrival: Ambulatory [facility] 09:54 Acuity: PRATIBHA 3 6 Triage Assessment: 09:59 General: Appears in no apparent distress. comfortable, Behavior is calm, cooperative. jh6 Pain: Complains of pain in forehead, right cheek and right eye Pain. 09:59 Neuro: No deficits noted. Level of Consciousness is awake, alert, obeys commands, jh6 Oriented to person, place, time, situation, Reports headache in right frontal area. 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 - Social history:: Smoking status: Patient/guardian denies using tobacco, but has a distant history of tobacco abuse. Assessment: 12:46 Reassessment: No changes from previously documented assessment. pt d[facility] was not assigned to rn. Neuro: No deficits noted. Vital Signs: 09:54 BP 129 / 72; Pulse 68; Resp 18; Temp 98; Pulse Ox 98% ; Weight 70.31 kg; Height 5 ft. 6 (152.40 cm); Pain 5/10; 09:54 Body Mass Index 30.27 (70.31 kg, 152.40 cm) 6 Mia Coma Score: 09:54 Eye Response: spontaneous(4). Verbal Response: oriented(5). Motor Response: obeys [facility] commands(6). Total: 15. ED Course: 09:36 Patient arrived in ED. as 09:37 [place] MD is Private Physician. as 09:38 [facility]arte [facility] 09:38 Micah Heard DO is Attending Physician. [facility] 09:59 Triage completed. jh6 10:22 CT Head Brain wo Cont In Process Unspecified. EDMS 10:23 CT Facial Bones W/O Con In Process Unspecified. EDMS 10:23 CT C Spine In Process Unspecified. EDMS 11:54 Soni Clark MD is Referral Physician. [facility] Administered Medications: No medications were administered Outcome: 11:55 Discharge ordered by MD. [facility] 12:46 Discharged to home ambulatory. [facility] 12:46 Condition: stable 12:46 Discharge instructions given to patient, family, Instructed on discharge instructions, follow up and referral plans. Demonstrated understanding of instructions, follow-up care. 12:46 Patient left the ED. [facility] Signatures: Dispatcher [employer] EDOrlando Mendez PA PA jmm Martinez, Amelia as Hastedt, Jennifer, RN RN [facility]
--- NOTE | 2021-12-19 11:56 | EDPHYS ---
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 - Social history:: Smoking status: Patient/guardian denies using tobacco, but has a distant history of tobacco abuse. Vital Signs: 09:54 BP 129 / 72; Pulse 68; Resp 18; Temp 98; Pulse Ox 98% ; Weight 70.31 kg; Height 5 ft. jh6 (152.40 cm); Pain 5/10; 09:54 Body Mass Index 30.27 (70.31 kg, 152.40 cm) jh6 [place] Coma Score: 09:54 Eye Response: spontaneous(4). Verbal Response: oriented(5). Motor Response: obeys [facility] emergency room commands(6). Total: 15. MDM: 09:49 Patient medically screened. [facility] 11:54 Data reviewed: vital signs, nurses notes. Counseling: I had a detailed discussion with jing the patient and/or guardian regarding: the historical points, exam findings, and any diagnostic results supporting the discharge/admit diagnosis, radiology results, the need for outpatient follow up, to return to the emergency department if symptoms worsen or persist or if there are any questions or concerns that arise at home. 12/19 09:50 Order name: CT Head Brain wo Cont; Complete Time: 10:51 [facility] 12/19 09:50 Order name: CT Facial Bones W/O Con; Complete Time: 11:16 [facility] 12/19 09:51 Order name: CT C Spine; Complete Time: 10:52 [facility] Administered Medications: No medications were administered Disposition: 12/20 09:22 Co-signature as Attending Physician, Micah Heard DO I was immediately available on-site ms3 in the Emergency Department for consultation in the care of the patient.. Disposition Summary: 12/19/21 11:55 Discharge Ordered Location: Home [facility] Condition: Stable [facility] Diagnosis - Fracture of nasal bones [facility] Followup: [facility] - With: Soni Clark MD - When: 2 - 3 days - Reason: Recheck today's complaints, Continuance of care, Re-evaluation by your physician Discharge Instructions: - Discharge Summary Sheet jm - Head Injury, Adult jm - Nasal Fracture [facility] Forms: - Medication Reconciliation Form [facility] - Thank You Letter [facility] - Antibiotic Education [facility] - Prescription Opioid Use [facility] Signatures: Dispatcher [employer] EDMS Orlando Uriarte PA PA jmm Sims, Marcus, DO DO ms3 Renee Kohli RN RN jh6
[2021-12-19 12:53] VITALS: BP 129/72; TEMP 98; O2SAT 98
== END 2021-12-19 12:46 | disposition home or self-care (01) ==
LOC: ER 09:33
DX: S02.2XXA Fracture of nasal bones, initial encounter for closed fracture (principal); E11.9 Type 2 diabetes mellitus without complications; Z95.0 Presence of cardiac pacemaker
CPT/HCPCS: 70450; 70486; 72125; 76377